=== PATIENT | female | born 1950 | race Caucasian/White ===

== ENCOUNTER → 2020-04-27 09:18 | Outpatient (BNVA) | payer MEDICARE, SELFPAY | PROVIDERS: PCP Registered Nurse; Visit Provider Surgery | DX: Z85.3 Personal history of malignant neoplasm of breast (principal); Z92.21 Personal history of antineoplastic chemotherapy; Z90.12 Acquired absence of left breast and nipple | CPT/HCPCS: 99212 ==

== ENCOUNTER 2020-06-01 10:36 | Outpatient (REF) | payer MEDICARE, SELFPAY ==
--- NOTE | 2020-06-01 | MM_ITS ---
EXAMINATION: MM SCREENING DIGITAL BREAST TOMOSYNTHESIS, BILATERAL CLINICAL INFORMATION: Screening. Asymptomatic. Per previous report: Left mastectomy for breast cancer 2001. Due for yearly exam. The lifetime risk of breast cancer based on the Tyrer-Cuzick Model is not applicable (left mastectomy for breast cancer) COMPARISON: Mammography: Left mammography 02/04/19, 01/30/18, 12/07/16, 12/06/15 TECHNIQUE: Digital breast tomosynthesis is performed in both the craniocaudal and mediolateral oblique views along with computer-aided detection (CAD). Synthesized 2D images are generated from the tomosynthesis. Craniocaudal view of the right breast exaggerated toward the axilla using digital breast Tomosynthesis was also performed FINDINGS: The breasts are heterogeneously dense, which may obscure small masses (ACR BI-RADS breast composition Category c). There are no significant masses, abnormal calcifications, or other abnormalities. MM/MM tomosynthesis screening RT IMPRESSION: No mammographic evidence of malignancy. ASSESSMENT: BI-RADS 1: Negative RECOMMENDATION: Routine annual mammography screening. This patient's information was entered into a reminder system with a target due date for their next mammogram.
== END 2020-06-01 10:37 | disposition home or self-care (01) ==
LOC: HO.MAMMO 10:36
PROVIDERS: PCP Internal Medicine; Visit Provider Internal Medicine
DX: Z12.31 Encounter for screening mammogram for malignant neoplasm of breast (principal)
CPT/HCPCS: 77067

== ENCOUNTER 2020-08-31 13:58 | Outpatient (REF) | payer MEDICARE, SELFPAY ==
--- NOTE | ~2020-08-31 | XR_ITS ---
EXAMINATION: XR CHEST CLINICAL INFORMATION: COMPARISON: Chest CT dated 01/02/2018. TECHNIQUE: 2 views of the chest were obtained. FINDINGS: No significant abnormality is noted involving the heart, lungs, mediastinum, bony thorax or soft tissues. XR/XR chest 2V IMPRESSION: No acute cardiopulmonary process.
[2020-08-31 16:31] LABS: MANUAL DIFF FLAG NO
[2020-08-31 16:34] LABS: Basophils Absolute Auto 0.1 X10*3/uL (0.0-0.2); Eosinophils Absolute Auto 0.3 X10*3/uL (0.0-0.4); Eosinophils Percent Auto 3.4 % (0-4); Hematocrit 43.9 % (37-47); Hemoglobin 14.3 g/dl (12.0-16.0); Imm Gran Abs Auto 0.03 X10*3/uL (0.00-0.03); Imm Gran Pct Auto 0.3 % (0.0-0.4); Lymphocytes Absolute Auto 2.5 X10*3/uL (1.2-4.9); Lymphocytes Percent Auto 26.3 % (20-40); Mean Corpuscular HGB Conc 32.6 g/dl (31.0-35.0); Mean Corpuscular Hemoglobin 29.4 pg (27.0-33.0); Mean Corpuscular Volume 90.1 fL (80-98); Mean Platelet Volume 9.6 fL (9.4-12.3); Monocytes Absolute Auto 0.9 X10*3/uL (0.1-1.2); Neutrophils Absolute Auto 5.6 X10*3/uL (2.0-8.3); Platelet Count 360 X10*3/uL (160-400); Red Blood Count 4.87 X10*6/uL (4.20-5.50); White Blood Count 9.4 X10*3/uL (4.8-10.8)
[2020-08-31 16:47] LABS: D Dimer < 200 NG/ML
[2020-08-31 16:55] LABS: Anion Gap 16 (12-20); Blood Urea Nitrogen 17 mg/dL (9-16); Calcium 9.1 mg/dL (8.4-10.2); Carbon Dioxide 26 mmol/L (22-29); Chloride 102 mmol/L (96-108); Estimated Glomerular Filt Rate > 60; Glucose Random 100 mg/dL (60-115); Potassium 3.9 mmol/L (3.3-5.1); Sodium 140 mmol/L (135-145)
[2020-08-31 17:03] LABS: B Type Natriuretic Peptide 11 pg/mL (<100)
== END 2020-08-31 13:59 | disposition home or self-care (01) ==
LOC: HO.HMGCX 13:58
PROVIDERS: PCP Internal Medicine; Visit Provider Nurse Practitioner Family
DX: R06.02 Shortness of breath (principal); R07.89 Other chest pain
CPT/HCPCS: 36415; 71046; 80048; 83880; 85025; 85379

== ENCOUNTER → 2020-12-24 08:51 | Outpatient (BNV) | payer MEDICARE, SELFPAY | PROVIDERS: PCP Internal Medicine; Visit Provider Internal Medicine Medical Oncology | DX: Z85.3 Personal history of malignant neoplasm of breast (principal) | CPT/HCPCS: 99213 ==

== ENCOUNTER → 2021-02-10 10:12 | Outpatient (BNVA) | payer MEDICARE, SELFPAY | PROVIDERS: PCP Internal Medicine; Referring Provider Internal Medicine; Visit Provider Surgery | DX: Z85.3 Personal history of malignant neoplasm of breast (principal); Z92.21 Personal history of antineoplastic chemotherapy; Z90.12 Acquired absence of left breast and nipple | CPT/HCPCS: 99212 ==

== ENCOUNTER 2021-04-14 07:01 | Outpatient (REF) | payer MEDICARE, SELFPAY ==
[2021-04-14 11:15] LABS: MANUAL DIFF FLAG NO
[2021-04-14 11:24] LABS: Basophils Absolute Auto 0.1 X10*3/uL (0.0-0.2); Eosinophils Absolute Auto 0.3 X10*3/uL (0.0-0.4); Eosinophils Percent Auto 3.5 % (0-4); Hematocrit 43.7 % (37-47); Hemoglobin 14.3 g/dl (12.0-16.0); Imm Gran Abs Auto 0.03 X10*3/uL (0.00-0.03); Imm Gran Pct Auto 0.4 % (0.0-0.4); Lymphocytes Absolute Auto 2.7 X10*3/uL (1.2-4.9); Lymphocytes Percent Auto 33.8 % (20-40); Mean Corpuscular HGB Conc 32.7 g/dl (31.0-35.0); Mean Corpuscular Hemoglobin 29.5 pg (27.0-33.0); Mean Corpuscular Volume 90.3 fL (80-98); Mean Platelet Volume 9.7 fL (9.4-12.3); Monocytes Absolute Auto 0.9 X10*3/uL (0.1-1.2); Monocytes Percent Auto 11.1 % (2-11); Neutrophils Percent Auto 50.2 % (45-73); Platelet Count 320 X10*3/uL (160-400); Red Blood Count 4.84 X10*6/uL (4.20-5.50); Red Cell Distribution Width 13.2 % (11.0-16.0)
[2021-04-14 12:11] LABS: Alanine Aminotransferase 21 U/L (0-31); Albumin Level 4.2 g/dL (3.5-5.0); Alkaline Phosphatase 55 U/L (39-117); Anion Gap 13 (12-20); Aspartate Amino Transferase 27 U/L (5-31); Bilirubin Total 0.7 mg/dL (0.0-1.0); Blood Urea Nitrogen 17 mg/dL (9-16); Calcium 9.7 mg/dL (8.4-10.2); Carbon Dioxide 28 mmol/L (22-29); Chloride 104 mmol/L (96-108); Cholesterol 250 mg/dL; Estimated Glomerular Filt Rate > 60; Glucose Random 91 mg/dL (60-115); HDL Cholesterol 79 mg/dL; LDL Cholesterol Calculated 142 mg/dl; Potassium 4.3 mmol/L (3.3-5.1); Sodium 141 mmol/L (135-145); Total Protein 6.8 g/dL (6.5-8.0); Triglycerides 148 mg/dL
[2021-04-14 12:28] LABS: Folate > 20.0 ng/mL (> or = 4.0); Vitamin B12 620 pg/mL (200-900)
[2021-04-14 12:34] LABS: Free T4 (Free Thyroxine) 1.18 ng/dL (0.71-1.85); Thyroid Stimulating Hormone 2.04 uIU/mL (0.32-4.0); Vitamin D 25-OH Total 47.9 ng/mL (>30)
== END 2021-04-14 07:02 | disposition home or self-care (01) ==
LOC: HO.HMGCLDS 07:01
PROVIDERS: PCP Internal Medicine; Visit Provider Internal Medicine
DX: E03.9 Hypothyroidism, unspecified (principal); E78.00 Pure hypercholesterolemia, unspecified
CPT/HCPCS: 36415; 80053; 80061; 82306; 82607; 82746; 84439; 84443; 85025

== ENCOUNTER 2021-06-08 13:33 | Outpatient (REF) | payer MEDICARE, SELFPAY ==
--- NOTE | ~2021-06-08 | MM_ITS ---
EXAMINATION: MM SCREENING DIGITAL BREAST TOMOSYNTHESIS, RIGHT CLINICAL INFORMATION: Screening. Asymptomatic. Left mastectomy for breast cancer, 2001. COMPARISON: Mammography: 06/01/2020, 02/04/2019, 01/30/2018 TECHNIQUE: Digital breast tomosynthesis is performed in both the craniocaudal and mediolateral oblique views along with computer-aided detection (CAD). Synthesized 2D images are generated from the tomosynthesis. Additional exaggerated CC view is provided. FINDINGS: The breasts are heterogeneously dense, which may obscure small masses (ACR BI-RADS breast composition Category c). There are no significant masses, abnormal calcifications, or other abnormalities. Parenchymal pattern is similar to prior studies. There is no developing density or architectural abnormality. No significant changes. MM/MM tomosynthesis screening RT IMPRESSION: No mammographic evidence of malignancy. ASSESSMENT: BI-RADS 1: Negative RECOMMENDATION: Routine annual mammography screening. This patient's information was entered into a reminder system with a target due date for their next mammogram.
== END 2021-06-08 13:34 | disposition home or self-care (01) ==
LOC: HO.MAMMO 13:33
PROVIDERS: Visit Provider Internal Medicine
DX: Z12.31 Encounter for screening mammogram for malignant neoplasm of breast (principal)
CPT/HCPCS: 77063; 77067

== ENCOUNTER 2021-06-10 13:35 | Outpatient (REF) | payer MEDICARE, SELFPAY ==
--- NOTE | ~2021-06-10 | CT_ITS ---
EXAMINATION: CT CHEST WITHOUT CONTRAST CLINICAL INFORMATION: Follow-up pulmonary nodules COMPARISON: Previous chest CT December 2017 TECHNIQUE: Multidetector volumetric CT imaging of the chest was done. Axial MIP volume rendering provided. Sagittal and coronal reformatted images were obtained. This CT examination was performed using dose optimization techniques as appropriate, variously including the following: *Automated exposure control *Adjustment of mA and/or kV according to patient size (this includes techniques or standardized protocols for targeted exams where dose is matched to indication/reason for exam; i.e. extremities or head) *Use of iterative reconstruction technique DLP: 113 mGy-cm FINDINGS: LUNGS: There is mild biapical pleural parenchymal scarring. There is a 2 mm left upper lobe nodule axial image 59 series 7. There is a 4 mm left lower lobe nodule axial image 320 series 7. There is a 3 mm peripheral or subpleural left lower lobe nodule axial image 249 series 7. There is a 2 mm right lower lobe nodule axial image 269 series 7. There is a 4 mm peripheral or subpleural left lower lobe nodule axial image 347 series 5. There are scattered areas of bronchial wall soft tissue opacification, greatest in the upper lobes. There are increased peripheral reticular markings in the anterior left upper lobe probably related to previous chest wall radiation. There are small calcified pulmonary nodules. Findings are stable 2018. MEDIASTINUM: The mediastinum is normal. PLEURA: There is no pleural effusion. No pleural mass or thickening. AXILLA: The left breast has been removed. There is an asymmetric density seen in the medial lower right breast 1 cm axial image 33 series 3, sagittal reconstructed image There are small bilateral axillary lymph nodes. No enlarged lymph nodes are seen. UPPER ABDOMEN: Unremarkable. OSSEOUS STRUCTURES: There is curvature of the thoracic right and mild degenerative change. CT/CT chest wo con IMPRESSION: Stable pulmonary nodules. Increasing asymmetric density in the right medial lower breast. Correlation with mammogram, ultrasound and physical exam recommended. Fleischner guidelines were followed.
--- NOTE | 2021-06-13 13:59 | MHC.HEMONC ---
Report of pt CT and see if she was concerned.to be reviewed by Dr Damon as Dr Gurrola called and wanted Dr Damon to review
== END 2021-06-10 13:36 | disposition home or self-care (01) ==
LOC: HO.CT 13:35
PROVIDERS: PCP Internal Medicine; Visit Provider Internal Medicine
DX: R91.1 Solitary pulmonary nodule (principal)
CPT/HCPCS: 71250

== ENCOUNTER 2021-06-13 14:00 | Outpatient (RCR) | payer MEDICARE, SELFPAY ==
--- NOTE | 2021-04-27 15:08 | MHC.PT.EP ---
[facility] [place] Office [place] Office [place] Office [address] Timmy Hawkins [address] [phone] F: [phone] F: [phone] F: [phone] F: [phone] Physical Therapy Plan of Care Date of Evaluation: Date of Surgery: Diagnosis: This is a 71 yo female presenting to skilled PT with a script for dysfunction of sacral region Assessment: This is a 71 yo female presenting to skilled PT with a script for dysfunction of sacral region. Pain has been ongoing for about 6 weeks. 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 She reports that the pain had gotten so bad she went to the walk-in as it was a weekend. She saw Dr. Parsons who performed MET and provided a regiment of prednisone. Since then her pain has improved and she has returned to golf but continues to have some residual achiness. Pain is now located at the L side low back and at times this can radiate into the L thigh (does not go past the knee). Pain is described as weakness and achy now. Assessment reveals pain that ranges up to a 6/10 at the worst. She demos decreased L hip ROM, decreased B hip, core and back strength, impaired gait pattern with increased sacral rotation, impaired lumbar joint mobility (hypomobile), TTP L piri, lumbar paraspinals, L ITB and QL as well as gross functional decline with sitting and golfing. She is a good candidate for skilled PT 2x/wk for 6wks. Frequency and Duration: The patient will be seen 2x/wk for 6wks Short Term Goals: I in HEP Demo good tac without cues from PT Demo good sitting posture at work with lumbar roll, feet flat, neutral cervical spine Snf Goals: Demos functional ROM and strength Improve Oswestry by at least 10 points Improve pain at the worst to no more than 2/10 Tolerate sitting at work without symptoms, not waking at night from pain Demo proper lifting, squatting and carrying techniques without increase in pain or radiating symptoms Treatment Plan: Modalities to reduce pain, spasms and effusion. Manual therapy to restore motion and function. Therapeutic exercise to improve strength and flexibility. Neuromuscular re-education for posture and balance. Therapeutic activities to return to functional activities of daily living. Electronically signed by: Josette Auguste PT Please sign and return to therapist. Thank you for your referral.
--- NOTE | 2021-06-13 14:54 | MHC.PT.DC ---
[facility] [place] Office [place] Office [place] Office [address] Timmy Hawkins [address] [phone] F: [phone] F: [phone] F: [phone] F: [phone] Physical Therapy Discharge Report Diagnosis: This is a 71 yo female presenting to skilled PT with a script for dysfunction of sacral region Date of Surgery: Date of Evaluation: 04/27/21 Date of Discharge: 06/13/21 Treatments to Date: 8 Cancellations to Date: 0 No Shows to Date: 0 Discharge Status: Achieved Goals Improved Function Independent with HEP Discharge Summary: Patient demos good pelvic alignment. She is I in her HEP and has improved her symptoms. She demos good ROM and strength. Educated once more on HEP and DC planning. DC to HEP Electronically signed by: Josette Auguste PT Please sign and return to therapist. Thank you for your referral.
== END 2021-06-13 14:54 | disposition home or self-care (01) ==
LOC: HO.PTCHIC 14:00
PROVIDERS: PCP Internal Medicine; Visit Provider Internal Medicine
DX: M99.04 Segmental and somatic dysfunction of sacral region (principal)
CPT/HCPCS: 97110; 97112; 97140; 97162

== ENCOUNTER 2021-07-01 10:48 | Outpatient (REF) | payer MEDICARE, SELFPAY ==
--- NOTE | ~2021-07-01 | MM_ITS ---
EXAMINATION: MM DIAGNOSTIC DIGITAL BREAST TOMOSYNTHESIS, RIGHT CLINICAL INFORMATION: Right breast CT finding for which targeted diagnostic ultrasound was performed with review of mammography of June 08, 2021 question be showing area of architectural distortion inferior right breast. COMPARISON: Mammography: Mammography of June 08, 2021 and studies dating back to December 06, 2015 as well as ultrasound of same day. TECHNIQUE: Digital breast tomosynthesis is performed in 90 degree mediolateral view and spot compression mediolateral oblique view. Synthesized 2D images are generated from the tomosynthesis. FINDINGS: The breasts are heterogeneously dense, which may obscure small masses (ACR BI-RADS breast composition Category c). Recent mammogram performed on June 08, 2021 was reviewed and is question of area of architectural distortion corresponding to the CT finding about the inferior aspect of the right breast 4 cm from the nipple. Further mammographic evaluation was performed with a spot compression mediolateral oblique projection and 90 degree mediolateral view of the right breast. The questioned spiculated mass is seen to compress out and to represent superimposition of fibroglandular tissue. No persistent suspicious mass is seen. Results are discussed with the patient at time of visit. MM/MM tomosynthesis diagnostic RT IMPRESSION: No suspicious ultrasound or mammographic findings of the right breast to correspond to CT findings.. ASSESSMENT: BI-RADS 1: Negative RECOMMENDATION: Routine annual mammography screening. This patient's information was entered into a reminder system with a target due date for their next mammogram.
--- NOTE | ~2021-07-01 | US_ITS ---
EXAMINATION: US DIAGNOSTIC ULTRASOUND BREAST LIMITED, RIGHT CLINICAL INFORMATION: Asymmetric density seen on CT scan of 06/10/2021. COMPARISON: CT scan of 06/10/2021 and mammography of 06/08/2021 and mammograms dating back to 10/30/2013. TECHNIQUE: Ultrasound of the breast is performed with real-time ness-scale imaging and color Doppler. FINDINGS: There is no focal suspicious finding. There is no solid mass, architectural abnormality, duct ectasia, or edema in the soft tissue planes. Recent mammogram performed on 06/08/2021 was reviewed, and there is a question of an area of architectural distortion corresponding to the CT finding about the inferior aspect of the right breast 4 cm from the nipple. Further mammographic evaluation was performed with a spot compression mediolateral oblique projection and 90-degree mediolateral view of the right breast. The questioned spiculated mass is seen to compress out representing superimposition of fibroglandular tissue. No persistent suspicious mass is seen. Results are discussed with the patient at time of visit. US/US breast RT limited IMPRESSION: No suspicious ultrasound or mammographic findings of the right breast to correspond to CT findings. ASSESSMENT: BI-RADS 1: Negative. RECOMMENDATION: Routine annual mammography screening. This patient's information was entered into a reminder system with a target due date for their next mammogram.
== END 2021-07-01 10:49 | disposition home or self-care (01) ==
LOC: HO.MAMMO 10:48
PROVIDERS: PCP Internal Medicine; Visit Provider Internal Medicine
DX: R92.2 Inconclusive mammogram (principal)
CPT/HCPCS: 76642; 77061; 77065

== ENCOUNTER 2021-11-10 09:09 | Outpatient (REF) | payer MEDICARE, SELFPAY ==
--- NOTE | ~2021-11-10 | MM_ITS ---
EXAMINATION: BONE DENSITOMETRY CLINICAL INDICATION: Age-related osteoporosis without current pathological fracture. COMPARISON: Previous BD dated 02/18/2019 and baseline BD dated 10/05/2006. TECHNIQUE: Using a [employer] PPEC DXA System (software version: 13.1) manufactured by [employer], dual-energy x-ray absorptiometry was performed of the lumbar spine and left hip. The images are of good technical quality. Summary results are attached. FINDINGS: AP SPINE L1-L4: Current: BMD 1.274 g/cm2, Z-score 2.6, T-score 0.8, normal, 3.6% increase from previous, 5.7% increase from baseline (<5% change is not significant). Prior: BMD 1.230 g/cm2. Baseline: BMD 1.205 g/cm2. LEFT FEMUR, NECK: Current: BMD 0.867 g/cm2, Z-score 0.6, T-score -1.2, osteopenia. Prior: BMD 0.829 g/cm2. Baseline: BMD 0.811 g/cm2. LEFT FEMUR, TOTAL: Current: BMD 0.904 g/cm2, Z-score 0.8, T-score -0.8, normal, 1.5% decrease from previous, 2.4% decrease from baseline (<5% change is not significant). Prior: BMD 0.918 g/cm2. Baseline: BMD 0.926 g/cm2. IDENTIFIED RISK FACTORS: Menopause. HISTORY OF FRACTURE: No insufficiency fracture reported. . MEDICATIONS: Calcium supplements or multivitamin, vitamin D, ERT/SERMS. MM/XR DEXA axial skeleton IMPRESSION: 1. DIAGNOSIS: Osteopenia based on the lowest T-score value of -1.2 in the femoral neck applying World Health Organization criteria. 2. 10-YEAR FRACTURE RISK PREDICTION, FRAX: Major osteoporotic fracture (clinical spine, forearm, hip or shoulder) 9.3%. Hip fracture 1.2%. 3. Treatment Recommendations: NOF guidelines recommend consideration for treatment in postmenopausal women and men age 50 and older presenting with the following: -A hip or vertebral (clinical or morphometric) fracture. -T-score less than or equal to -2.5 at the femoral neck or spine after appropriate evaluation to exclude secondary causes. -Low bone mass at the hip or spine and a 10-year fracture probability by FRAX of greater than or equal to 3% for hip fracture or greater than or equal to 20% for major osteoporotic fracture based on the [place] adapted WHO algorithm. 4. Other Recommendations: All treatment decisions require clinical judgment and consideration of individual patient factors, including patient preferences, comorbidities, previous drug use, risk factors not captured in the FRAX model (e.g. frailty, falls, vitamin D deficiency, increased bone turnover, interval significant decline in bone density) and possible under or overestimation of fracture risk by FRAX. Additional medical evaluation for secondary cause of low bone mineral density may be appropriate. FUTURE SCAN RECOMMENDATION: People with diagnosed cases of osteoporosis or at high risk for fracture should have regular bone mineral density tests. For patients eligible for Medicare, routine testing is allowed once every 2 years. The testing frequency can be increased to one year for patients who have rapidly progressing disease, those who are receiving or discontinuing medical therapy to restore bone mass, or have additional risk factors.
== END 2021-11-10 09:10 | disposition home or self-care (01) ==
LOC: HO.MAMMO 09:09
PROVIDERS: PCP Internal Medicine; Visit Provider Internal Medicine
DX: Z13.820 Encounter for screening for osteoporosis (principal); Z78.0 Asymptomatic menopausal state; M81.0 Age-related osteoporosis without current pathological fracture
CPT/HCPCS: 77080

== ENCOUNTER 2022-01-23 10:06 | Outpatient (REF) | payer MEDICARE, SELFPAY ==
--- NOTE | ~2022-01-23 | XR_ITS ---
EXAMINATION: XR ABDOMEN COMPLETE CLINICAL INDICATION: Abdominal pain. COMPARISON: None TECHNIQUE: 2 views of the abdomen. FINDINGS: There is a nonobstructive bowel gas pattern. Mild gas and stool are seen within the colon distally to the rectum. No abnormal calcifications. Mild multilevel degenerative changes in the inferior lumbar spine and hips bilaterally. XR/XR abdomen min 2V IMPRESSION: Noneffective bowel gas pattern. Mild colonic stool burden.
== END 2022-01-23 10:07 | disposition home or self-care (01) ==
LOC: HO.HMGCX 10:06
PROVIDERS: PCP Internal Medicine; Visit Provider Internal Medicine
DX: R10.9 Unspecified abdominal pain (principal)
CPT/HCPCS: 74019

== ENCOUNTER → 2022-02-14 08:47 | Outpatient (BNVA) | payer MEDICARE, SELFPAY | PROVIDERS: PCP Internal Medicine; Visit Provider Surgery | DX: Z85.3 Personal history of malignant neoplasm of breast (principal) | CPT/HCPCS: 99212 ==

== ENCOUNTER 2022-03-28 07:13 | Outpatient (REF) | payer MEDICARE, SELFPAY ==
[2022-03-28 11:25] LABS: MANUAL DIFF FLAG NO
[2022-03-28 11:41] LABS: Basophils Absolute Auto 0.1 X10*3/uL (0.0-0.2); Basophils Percent Auto 0.9 % (0-2); Eosinophils Absolute Auto 0.3 X10*3/uL (0.0-0.4); Eosinophils Percent Auto 3.4 % (0-4); Hematocrit 46.6 % (37.0-47.0); Imm Gran Abs Auto 0.04 X10*3/uL (0.00-0.03); Imm Gran Pct Auto 0.4 % (0.0-0.4); Lymphocytes Absolute Auto 2.7 X10*3/uL (1.2-4.9); Lymphocytes Percent Auto 29.1 % (20-40); Mean Corpuscular HGB Conc 32.2 g/dl (31.0-35.0); Mean Corpuscular Hemoglobin 29.1 pg (27.0-33.0); Mean Corpuscular Volume 90.3 fL (80.0-98.0); Mean Platelet Volume 9.7 fL (9.4-12.3); Monocytes Percent Auto 10.7 % (2-11); Neutrophils Absolute Auto 5.1 x10*3/uL (2.0-8.3); Neutrophils Percent Auto 55.5 % (45-73); Platelet Count 334 X10*3/uL (160-400); Red Blood Count 5.16 X10*6/uL (4.20-5.50); Red Cell Distribution Width 13.2 % (11.0-16.0); White Blood Count 9.2 X10*3/uL (4.8-10.8)
[2022-03-28 12:23] LABS: Alanine Aminotransferase 25 U/L (0-31); Albumin Level 4.4 g/dL (3.5-5.0); Alkaline Phosphatase 54 U/L (39-117); Anion Gap 14 (12-20); Aspartate Amino Transferase 26 U/L (5-31); Bilirubin Total 0.5 mg/dL (0.0-1.0); Blood Urea Nitrogen 15 mg/dL (9-16); Calcium 9.7 mg/dL (8.4-10.2); Carbon Dioxide 27 mmol/L (22-29); Chloride 103 mmol/L (96-108); Cholesterol 238 mg/dL; Estimated Glomerular Filt Rate > 60; Glucose Random 96 mg/dL (60-115); HDL Cholesterol 73 mg/dL; LDL Cholesterol Calculated 129 mg/dl; Potassium 4.4 mmol/L (3.3-5.1); Sodium 140 mmol/L (135-145); Total Protein 6.9 g/dL (6.5-8.0); Triglycerides 182 mg/dL
[2022-03-28 12:31] LABS: Free T4 (Free Thyroxine) 1.25 ng/dL (0.71-1.85); Thyroid Stimulating Hormone 1.63 uIU/mL (0.32-4.0); Vitamin D 25-OH Total 50.8 ng/mL (>30)
[2022-03-28 12:51] LABS: Folate > 20.0 ng/mL (> or = 4.0); Vitamin B12 642 pg/mL (200-900)
== END 2022-03-28 07:14 | disposition home or self-care (01) ==
LOC: HO.HMGCLDS 07:13
PROVIDERS: PCP Internal Medicine; Visit Provider Internal Medicine
DX: E78.00 Pure hypercholesterolemia, unspecified (principal)
CPT/HCPCS: 36415; 80053; 80061; 82306; 82607; 82746; 84439; 84443; 85025

== ENCOUNTER 2022-04-10 10:07 | Outpatient (REF) | payer MEDICARE, SELFPAY ==
--- NOTE | ~2022-04-10 | XR_ITS ---
EXAMINATION: XR SHOULDER, RIGHT CLINICAL INFORMATION: Pain COMPARISON: None TECHNIQUE: AP external rotation, Grashey, scapular Y, and axillary views of the right shoulder. FINDINGS: Bone alignment is normal. No fracture or dislocation. Normal glenohumeral joint. Arthritis at the acromioclavicular joint. Normal soft tissues. XR/XR shoulder RT min 2V IMPRESSION: Arthritis at the acromioclavicular joint.
== END 2022-04-10 10:08 | disposition home or self-care (01) ==
LOC: HO.XRAY 10:07
PROVIDERS: PCP Internal Medicine; Visit Provider Internal Medicine
DX: M25.511 Pain in right shoulder (principal)
CPT/HCPCS: 73030

== ENCOUNTER → 2022-04-28 08:34 | Outpatient (BNVA) | payer MEDICARE, SELFPAY | PROVIDERS: PCP Internal Medicine; Visit Provider Physician Assistant | DX: M19.011 Primary osteoarthritis, right shoulder (principal); M75.80 Other shoulder lesions, unspecified shoulder | CPT/HCPCS: 20610; 99202; J1040 ==

== ENCOUNTER 2022-06-20 11:02 | Outpatient (REF) | payer MEDICARE, SELFPAY ==
[2022-06-20 15:26] LABS: Anion Gap 14 (12-20); Blood Urea Nitrogen 16 mg/dL (9-16); Calcium 9.7 mg/dL (8.4-10.2); Carbon Dioxide 28 mmol/L (22-29); Chloride 101 mmol/L (96-108); Estimated Glomerular Filt Rate > 60; Glucose Random 100 mg/dL (60-115); Sodium 139 mmol/L (135-145)
== END 2022-06-20 11:03 | disposition home or self-care (01) ==
LOC: HO.HMGCLDS 11:02
PROVIDERS: PCP Internal Medicine; Visit Provider Internal Medicine
DX: I10 Essential (primary) hypertension (principal)
CPT/HCPCS: 36415; 80048

== ENCOUNTER 2022-06-21 14:56 | Outpatient (REF) | payer MEDICARE, SELFPAY ==
--- NOTE | ~2022-06-21 | MM_ITS ---
EXAMINATION: MM SCREENING DIGITAL BREAST TOMOSYNTHESIS, RIGHT CLINICAL INFORMATION: Screening. Asymptomatic. Status post left mastectomy. COMPARISON: Mammography: July 01, 2021 and studies dating back to December 06, 2015 TECHNIQUE: Digital breast tomosynthesis is performed in both the craniocaudal and mediolateral oblique views along with computer-aided detection (CAD). Synthesized 2D images are generated from the tomosynthesis. Additional right breast exaggerated craniocaudal view performed. FINDINGS: The breasts are extremely dense, which lowers the sensitivity of mammography (ACR BI-RADS breast composition Category d). There are no new significant masses, abnormal calcifications, or other abnormalities. MM/MM tomosynthesis screening RT IMPRESSION: No significant changes from prior exam. ASSESSMENT: BI-RADS 1: Negative RECOMMENDATION: Routine annual mammography screening. This patient's information was entered into a reminder system with a target due date for their next mammogram.
== END 2022-06-21 14:57 | disposition home or self-care (01) ==
LOC: HO.MAMMO 14:56
PROVIDERS: PCP Internal Medicine; Visit Provider Surgery
DX: Z12.31 Encounter for screening mammogram for malignant neoplasm of breast (principal)
CPT/HCPCS: 77063; 77067

== ENCOUNTER 2022-07-17 05:44 | Day surgery (SDC) | payer MEDICARE, SELFPAY ==
[2022-07-11 11:18] VITALS: BMI 23.7
--- NOTE | 2022-07-14 09:39 | MHC.SHP ---
Pre-Procedural Eval Section A Date of Service: 07/14/22 The patient is an INPATIENT: No Changes since office visit: No Cold of Flu in the past 2 weeks, No New Medical Problems, No Changes in Medication and No Patient answered all questions The History & Physical has been completed within 30 days and I have reviewed it.: Yes Section B Chief Complaint: Age-related nuclear cataract, left eye Allergies: Allergies Allergy/AdvReac Type Severity Reaction Status Date / Time [id number] Reductase Allergy Mild ACHY Verified 07/11/22 11:06 Inhibitor [[id number] REDUCTASE INHIBITOR] atorvastatin [From Lipitor] Allergy Unknown Muscle Pain Verified 07/11/22 11:18 ciprofloxacin [Cipro] Allergy Unknown Anaphylaxis Verified 07/11/22 11:06 metronidazole Allergy Unknown anaphylaxis Verified 07/11/22 11:06 rosuvastatin [From Crestor] Allergy Unknown Muscle Pain Verified 07/11/22 11:18 simvastatin Allergy Unknown Muscle Pain Verified 07/11/22 11:18 Sulfa (Sulfonamide Allergy Unknown diarrhea Verified 07/11/22 11:06 Antibiotics) sulfamethoxazole Allergy Unknown Unknown Verified 07/11/22 11:06 [From Bactrim] trimethoprim [From Bactrim] Allergy Unknown Unknown Verified 07/11/22 11:06 SEASONAL ALLERGIES Allergy Intermediate ITCHING Uncoded 07/11/22 11:06 Plan Diagnosis/Plan: Unchanged I have reviewed the history and physical and performed a pertinent physical examination on my patient. No changes have occurred unless specified. Time Spent With Patient Time: Total time managing care of this patient today ____ minutes.
[2022-07-17] MEDS: Tetracaine HCl/PF 0.5% Oph Sol 4 ML DROPS 1 DROP EYE-LEFT (06:09)
[2022-07-17] MEDS: Tropicamide 1 % Ophth Sol 3 ML BTL 1 DROP EYE-LEFT ×3 (06:10→06:20)
[2022-07-17] MEDS: Ketorolac Tromethamine 0.5% Op 5 ML DROPS 1 DROP EYE-LEFT ×3 (06:10→06:20)
[2022-07-17] MEDS: Cyclopentolate 1 % Ophth Sol 2 ML DRPBTL 1 DROP EYE-LEFT ×3 (06:10→06:20)
[2022-07-17] MEDS: Phenylephrine HCL 2.5% Oph SoL 2 ML BOTTLE 1 DROP EYE-LEFT ×3 (06:10→06:20)
[2022-07-17] MEDS: Lactated Ringers 500 ML 20 ML IVCONT ×2 (06:11→06:24)
[2022-07-17 06:23] VITALS: BP 129/67; PULSE 94; RESP 18; TEMP 36.6; O2SAT 97
--- NOTE | 2022-07-17 06:26 | PC.NURSE ---
only one bag of 500ml was hung at [facility].
--- NOTE | 2022-07-17 07:14 | P.CONAN_ITS ---
[facility] Active Problems Active Problems: All Active Problems (Updated 06/07/22 @ 14:44 by Genaro Dubon MD) Contusion of leg, left (Acute) Rotator cuff tendonitis (Acute) Arthritis of right acromioclavicular joint (Acute) Shoulder pain, right (Acute) Constipation (Acute) Osteopenia (Acute) Abdominal pain (Acute) Bicipital tendinitis of right shoulder (Acute) Pulmonary nodule (Acute) Somatic dysfunction of left sacroiliac joint (Acute) GERD (gastroesophageal reflux disease) (Acute) IBS (irritable bowel syndrome) (Acute) Hypercholesterolemia (Acute) History of left breast cancer (Acute) Hypothyroidism (Acute) Hypertension (Acute) Past Medical History Medical History Adult general medical exam Anxiety Breast density Chest tightness Diverticular disease Drug allergy, antibiotic Family history of malignant neoplasm of endometrium Family history of pancreatic cancer History of left breast cancer Hypercholesterolemia Hypertension Hypothyroidism Insomnia Irritable bowel syndrome Pulmonary nodule Shortness of breath Family History Family History Father History of cirrhosis Lung cancer Mother Pancreatic cancer CVD (cardiovascular disease) Hypertension Sister History of endometrial cancer Brother No problems noted. Other Substance use disorder Family history of problems with anesthesia: No Surgical History Surgical History History of colonoscopy History of laparoscopy History of left mastectomy History of tonsillectomy History of Problems with Anesthesia: No Social History Social History Household Members: None Housing: House Are you a primary personal care aid to a significant other at home: No Do you presently have visiting nurse or other home services: No Alcohol intake: current Alcohol intake frequency: holidays/special occasions only Alcohol type: beer and wine Patient Tobacco Use Status: Never used Tobacco e-Cigarette/Vaping Use: Never Used Second Hand Smoke Exposure: No Use of substances other than those prescribed or required for medical reasons: No Have you been hit, kicked, punched, or otherwise hurt by someone within the past year? 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) Cognitive needs: No Hearing needs: No Vision needs: Yes Meds Allergies Allergy/AdvReac Type Severity Reaction Status Date / Time Kiosvit-YDP-FhH Reductase Allergy Mild ACHY Verified 07/11/22 11:06 Inhibitor [[id number] REDUCTASE INHIBITOR] atorvastatin [From Lipitor] Allergy Unknown Muscle Pain Verified 07/11/22 11:18 ciprofloxacin [Cipro] Allergy Unknown Anaphylaxis Verified 07/11/22 11:06 metronidazole Allergy Unknown anaphylaxis Verified 07/11/22 11:06 rosuvastatin [From Crestor] Allergy Unknown Muscle Pain Verified 07/11/22 11:18 simvastatin Allergy Unknown Muscle Pain Verified 07/11/22 11:18 Sulfa (Sulfonamide Allergy Unknown diarrhea Verified 07/11/22 11:06 Antibiotics) sulfamethoxazole Allergy Unknown Unknown Verified 07/11/22 11:06 [From Bactrim] trimethoprim [From Bactrim] Allergy Unknown Unknown Verified 07/11/22 11:06 SEASONAL ALLERGIES Allergy Intermediate ITCHING Uncoded 07/11/22 11:06 Active Medications: Current Medications Lactated Ringer's (Lr) 500 mls @ 20 mls/hr IVCONT .Q24H GURDEEP Last Admin: 07/17/22 06:24 Dose: 20 mls/hr Povidone Iodine (Povidone Iodine 5 % Ophth Soln 30 Ml Bottle) 1 appl EYE-LEFT PREOP PRN PRN Reason: Pre-Op Surgical Implant Prophy Home Medications Medication Instructions Recorded Confirmed Last Taken Type Saccharomyces boulardii 250 mg 250 mg PO DAILY 05/27/20 07/11/22 Unknown History capsule (Daily Probiotic (S. boulardii)) calcium carbonate 600 mg-vitamin 1 cap PO DAILY 05/27/20 07/11/22 Unknown History D3 5 mcg (200 unit) capsule (Calcium 600 + D(3)) fluticasone propionate 50 2 spray intranasal DAILY 05/27/20 07/11/22 Unknown History mcg/actuation nasal spray,suspension ketoconazole 2 % shampoo 1 appl topical 2XW 05/27/20 07/11/22 Unknown History multivitamin 1 tab PO DAILY 12/29/21 07/11/22 Unknown History azelaic acid 15 % topical gel 1 appl topical BID 01/23/22 07/11/22 Unknown History Exam Exam Date and Time: July 17, 2022 0714 Height,Weight and Vital Signs: Height 5 ft 3 in Weight 60.781 kg Last Vital Signs Temp 97.9 F 07/17/22 06:23 Pulse 94 07/17/22 06:23 Resp 18 07/17/22 06:23 BP 129/67 07/17/22 06:23 Pulse Ox 97 07/17/22 06:23 O2 Del Method 07/17/22 06:23 Airway Mallampati Class: III (Small opening) TM Dist: >3cm Neck ROM: Full Heart: rrr Lungs: cta Assessment and Plan Assessment Anesthesia Assessment: Anesthesia Plan Discussed and Chart Reviewed Final Anesthetic Review Family History of Problems with Anesthesia: No History of Problems with Anesthesia: No NPO: Yes ASA Class: III Final Preanesthetic Review: No Changes in Pt Med Stat, Meds/Allgs Chart Reviewed and Consent Obtained/Reviewed Patient Risk: Intermediate Procedure Risk: Intermediate Anesthetic Plan Anesthetic Plan: MAC: Disposition: Standard PACU
[2022-07-17 07:57] VITALS: BP 118/65; PULSE 73; RESP 17; TEMP 36.6; O2SAT 99
--- NOTE | 2022-07-17 08:06 | P.PCNO_ITS ---
Ophthalmology Procedure Procedure Date of Service: 07/17/22 Ophthalmology Viscoelastic: Healon Duet Dual Pack Pro Ophthalmology Lenses: TECNIS ZXR00 (19) Procedure Notes: PREOPERATIVE DIAGNOSIS: Decreased visual acuity left eye secondary to cataract POSTOPERATIVE DIAGNOSIS: Same PROCEDURE: Left cataract extraction with multifocal intraocular lens insertion SURGEON: Dimitris Luis M.D. ANESTHESIA: Topical/MAC ESTIMATED BLOOD LOSS: None COMPLICATIONS: None After obtaining informed consent, the patient was brought to the operation room suite and placed in the supine position. After adequate sedation per anesthesia, topical drops of Tetracaine were given to the left eye. The eye was then prepped and draped in the usual sterile fashion. The operating room microscope was then positioned over the operative eye and a lid speculum placed. A paracentesis was created. Viscoelastic was then instilled into the anterior chamber. A three plane incision was then created temporally, utilizing a 2.85 mm keratome. Capsulotomy forceps were then utilized to create a circular tear capsulotomy. Hydrodissection and hydrodelineation were carried out until adequate mobilization of the nucleus occurred. Phacoemulsification was then utilized to remove the dense central nucleus followed by removal of the cortical material utilizing the automated aspiration irrigation unit. Viscoelastic was instilled into the posterior capsular bag followed by placement of a multifocal posterior chamber intraocular lens without difficulty. The residual Viscoelastic was then removed utilizing the automated IA machine. The wound was check and found to be watertight. The patient tolerated t he procedure well and the lid speculum was removed. Intracameral injection of Vigamox 0.1 mL followed by a subtenon injection of Kenalog-40 0.2 mL were administered. The patient will be seen in the a.m.
== END 2022-07-17 08:11 | disposition home or self-care (01) ==
PROVIDERS: PCP Internal Medicine; Visit Provider Ophthalmology
PROC: (CPT 66984; principal; 2022-07-17 07:30)
DX: H25.12 Age-related nuclear cataract, left eye (principal); H40.013 Open angle with borderline findings, low risk, bilateral; D23.121 Other benign neoplasm of skin of left upper eyelid, including canthus; H52.4 Presbyopia; I10 Essential (primary) hypertension; E78.00 Pure hypercholesterolemia, unspecified; E03.9 Hypothyroidism, unspecified; R91.1 Solitary pulmonary nodule; C50.912 Malignant neoplasm of unspecified site of left female breast; Z90.12 Acquired absence of left breast and nipple; Z79.810 Long term (current) use of selective estrogen receptor modulators (SERMs); Z79.51 Long term (current) use of inhaled steroids; Z79.899 Other long term (current) drug therapy; Z88.1 Allergy status to other antibiotic agents; Z88.2 Allergy status to sulfonamides; Z88.8 Allergy status to other drugs, medicaments and biological substances
CPT/HCPCS: 66984; J2250; J3301; V2788

== ENCOUNTER 2022-08-03 10:00 | Outpatient (RCR) | payer MEDICARE, SELFPAY ==
--- NOTE | 2022-06-07 10:53 | MHC.PT.EP ---
[facility] [place] Office [place] Office [place] Office [address] [phone] F: [phone] F: [phone] F: [phone] F: [phone] Physical Therapy Plan of Care Date of Evaluation: Date of Surgery: none Diagnosis: Primary OA of R shoulder Assessment: Patient is a 72 year old R handed female who presents with s/s consistent with R shoulder pain. She likes to golf during the spring and summer. Patient past medical history includes breast cancer 20 years ago with mastectomy. Current impairments include pain, posture, ROM, strength, activity tolerance and functional mobility. Functional limitations include decreased ability to sleep, reach, lift and carry. Patient is motivated with good rehab potential. Skilled PT will address impairments and functional limitations in order to achieve goals. Frequency and Duration: The patient will be seen 2x/week for 5 weeks Short Term Goals: I with HEP - 2 weeks Pain free full AROM - 3 weeks Able to sleep pain free- 3 weeks Long-Term Goals: Strength 4/5 grossly - 5 weeks SPADI 14/130 or les - 5 weeks restore pain free PLOF - 5 weeks Treatment Plan: Modalities to reduce pain, spasms and effusion. Manual therapy to restore motion and function. Therapeutic exercise to improve strength and flexibility. Neuromuscular re-education for posture and balance. Therapeutic activities to return to functional activities of daily living. Electronically signed by: Adam Still, PT Please sign and return to therapist. Thank you for your referral.
--- NOTE | 2022-09-01 08:41 | MHC.PT.DC ---
[facility] [place] Office [place] Office [place] Office [address] Timmy Hawkins [address] [phone] F: [phone] F: [phone] F: [phone] F: [phone] Physical Therapy Discharge Report Diagnosis: Primary OA of R shoulder Date of Surgery: none Date of Evaluation: 06/07/22 Date of Discharge: 08/12/22 Treatments to Date: 13 Cancellations to Date: No Shows to Date: Discharge Status: Achieved Goals Improved Function Independent with HEP Discharge Summary: 08/03/22: SPADI 10/130. I with HEP. Progressed towards full AROM but not achieved yet. Able to sleep pain free. Strength is grossly 4/5, progressed towards pain free PLOF with 2/10 pain max with ADLs. Pt encouraged with ability to swing golf clubs. We will d/c to HEP at this time. Pt has HEP and appropriate bands. 07/28/22: pt still with good response. notes continued improvement and compiance with HEP. states she is 90% better and sleeping much better. 07/21/22: pt weak in ER 90/90 position. we initiated this today and will move it to HEP when pt able to perform without cues. 07/13/22: pt has been feeling better overall. tapering to 1x/week. issued updated HEP. 07/11/22: pt has been progressing well with skilled PT. progressed strength with D1/D2. no adverse reactions. continue to progress as tolerated. 07/06/22: pt has been compliant with HEP. progressing well. some pain with IR behind back but otherwise she is on pace to taper to 1x/week after next week. 07/04/22: pt is happy with progress thus far and is compliant with HEP. we progressed with b/l ER band today. continue to progress as tolerated. 06/30/22: pt seeing improved ability to reach overhead. however, still limited with rotational ROM. 06/28; Pt had increased flexion after mobs. fatigued after exs with no c/o increased pain. Added IR stretch with strap behind back as she reports this motion for ADLs is still challenging. She is making improvements in flexion and ER AROM, pain at end range of available ER, instructed to back off slightly when she feels pain and hold the stretch. Electronically signed by: Adam Still PT Please sign and return to therapist. Thank you for your referral.
== END 2022-09-01 08:42 | disposition home or self-care (01) ==
LOC: HO.PTCHIC 10:00
PROVIDERS: PCP Internal Medicine; Visit Provider Physician Assistant
DX: M19.011 Primary osteoarthritis, right shoulder (principal); M75.80 Other shoulder lesions, unspecified shoulder
CPT/HCPCS: 97110; 97140; 97162

== ENCOUNTER 2022-08-07 06:58 | Day surgery (SDC) | payer MEDICARE, SELFPAY ==
[2022-07-11 11:24] VITALS: BMI 23.7
--- NOTE | 2022-08-02 09:24 | MHC.SHP ---
Pre-Procedural Eval Section A Date of Service: 08/02/22 The patient is an INPATIENT: No Changes since office visit: No Cold of Flu in the past 2 weeks, No New Medical Problems, No Changes in Medication and No Patient answered all questions The History & Physical has been completed within 30 days and I have reviewed it.: Yes Section B Chief Complaint: Age-related nuclear cataract, right eye Allergies: Allergies Allergy/AdvReac Type Severity Reaction Status Date / Time [id number] Reductase Allergy Mild ACHY Verified 07/21/22 10:03 Inhibitor [[id number] REDUCTASE INHIBITOR] atorvastatin [From Lipitor] Allergy Unknown Muscle Pain Verified 07/21/22 10:03 ciprofloxacin [Cipro] Allergy Unknown Anaphylaxis Verified 07/21/22 10:03 metronidazole Allergy Unknown anaphylaxis Verified 07/21/22 10:03 rosuvastatin [From Crestor] Allergy Unknown Muscle Pain Verified 07/21/22 10:03 simvastatin Allergy Unknown Muscle Pain Verified 07/21/22 10:03 Sulfa (Sulfonamide Allergy Unknown diarrhea Verified 07/21/22 10:03 Antibiotics) sulfamethoxazole Allergy Unknown Unknown Verified 07/21/22 10:03 [From Bactrim] trimethoprim [From Bactrim] Allergy Unknown Unknown Verified 07/21/22 10:03 lisinopril AdvReac Intermediate Cough Verified 07/21/22 10:38 SEASONAL ALLERGIES Allergy Intermediate ITCHING Uncoded 07/21/22 10:03 Plan Diagnosis/Plan: Unchanged I have reviewed the history and physical and performed a pertinent physical examination on my patient. No changes have occurred unless specified. Time Spent With Patient Time: Total time managing care of this patient today ____ minutes.
[2022-08-07 07:04] VITALS: BP 156/77; PULSE 77; RESP 20; TEMP 36.6; O2SAT 97
[2022-08-07] MEDS: Phenylephrine HCL 2.5% Oph SoL 2 ML BOTTLE 1 DROP EYE-RIGHT ×3 (07:19→07:21)
[2022-08-07] MEDS: Ketorolac Tromethamine 0.5% Op 5 ML DROPS 1 DROP EYE-RIGHT ×3 (07:19→07:21)
[2022-08-07] MEDS: Tetracaine HCl/PF 0.5% Oph Sol 4 ML DROPS 1 DROP EYE-RIGHT (07:19)
[2022-08-07] MEDS: Tropicamide 1 % Ophth Sol 3 ML BTL 1 DROP EYE-RIGHT ×3 (07:19→07:21)
[2022-08-07] MEDS: Cyclopentolate 1 % Ophth Sol 2 ML DRPBTL 1 DROP EYE-RIGHT ×3 (07:19→07:21)
--- NOTE | 2022-08-07 07:25 | P.CONAN_ITS ---
[facility] Active Problems Active Problems: All Active Problems (Updated 06/07/22 @ 14:44 by Genaro Dubon MD) Contusion of leg, left (Acute) Rotator cuff tendonitis (Acute) Arthritis of right acromioclavicular joint (Acute) Shoulder pain, right (Acute) Constipation (Acute) Osteopenia (Acute) Abdominal pain (Acute) Bicipital tendinitis of right shoulder (Acute) Pulmonary nodule (Acute) Somatic dysfunction of left sacroiliac joint (Acute) GERD (gastroesophageal reflux disease) (Acute) IBS (irritable bowel syndrome) (Acute) Hypercholesterolemia (Acute) History of left breast cancer (Acute) Hypothyroidism (Acute) Hypertension (Acute) Past Medical History Medical History Adult general medical exam Anxiety Breast density Chest tightness Diverticular disease Drug allergy, antibiotic Family history of malignant neoplasm of endometrium Family history of pancreatic cancer History of left breast cancer Hypercholesterolemia Hypertension Hypothyroidism Insomnia Irritable bowel syndrome Pulmonary nodule Shortness of breath Family History Family History Father History of cirrhosis Lung cancer Mother Pancreatic cancer CVD (cardiovascular disease) Hypertension Sister History of endometrial cancer Brother No problems noted. Other Substance use disorder Family history of problems with anesthesia: No Surgical History Surgical History History of cataract surgery History of colonoscopy History of laparoscopy History of left mastectomy History of tonsillectomy History of Problems with Anesthesia: No Social History Social History Household Members: None Housing: House Are you a primary home care consultant to a significant other at home: No Do you presently have visiting nurse or other home services: No Alcohol intake: current Alcohol intake frequency: holidays/special occasions only Alcohol type: beer and wine Patient Tobacco Use Status: Never used Tobacco e-Cigarette/Vaping Use: Never Used Second Hand Smoke Exposure: No Use of substances other than those prescribed or required for medical reasons: No Have you been hit, kicked, punched, or otherwise hurt by someone within the past year? 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) Cognitive needs: No Hearing needs: No Vision needs: Yes Meds Allergies Allergy/AdvReac Type Severity Reaction Status Date / Time Zqphjcf-[id number]-PoB Reductase Allergy Mild ACHY Verified 07/21/22 10:03 Inhibitor [KZUCZNM-GEL-RAL REDUCTASE INHIBITOR] atorvastatin [From Lipitor] Allergy Unknown Muscle Pain Verified 07/21/22 10:03 ciprofloxacin [Cipro] Allergy Unknown Anaphylaxis Verified 07/21/22 10:03 metronidazole Allergy Unknown anaphylaxis Verified 07/21/22 10:03 rosuvastatin [From Crestor] Allergy Unknown Muscle Pain Verified 07/21/22 10:03 simvastatin Allergy Unknown Muscle Pain Verified 07/21/22 10:03 Sulfa (Sulfonamide Allergy Unknown diarrhea Verified 07/21/22 10:03 Antibiotics) sulfamethoxazole Allergy Unknown Unknown Verified 07/21/22 10:03 [From Bactrim] trimethoprim [From Bactrim] Allergy Unknown Unknown Verified 07/21/22 10:03 lisinopril AdvReac Intermediate Cough Verified 07/21/22 10:38 SEASONAL ALLERGIES Allergy Intermediate ITCHING Uncoded 07/21/22 10:03 Active Medications: Current Medications Cyclopentolate HCl (Cyclopentolate 1 % Ophth Marine 2 Ml Drpbtl) 1 drop EYE-RIGHT Q5M GURDEEP Stop: 08/07/22 07:26 Last Admin: 08/07/22 07:21 Dose: 1 drop Ketorolac Tromethamine (Ketorolac Tromethamine 0.5% Op 5 Ml Drops) 1 drop EYE- RIGHT Q5M GURDEEP Stop: 08/07/22 07:26 Last Admin: 08/07/22 07:21 Dose: 1 drop Phenylephrine HCl (Phenylephrine Hcl 2.5% Oph Marine 2 Ml Bottle) 1 drop EYE-RIGHT Q5M GURDEEP Stop: 08/07/22 07:26 Last Admin: 08/07/22 07:21 Dose: 1 1000units Povidone Iodine (Povidone Iodine 5 % Ophth Soln 30 Ml Bottle) 1 appl EYE-RIGHT PREOP PRN PRN Reason: Pre-Op Surgical Implant Prophy Tropicamide (Tropicamide 1 % Ophth Marine 3 Ml Btl) 1 drop EYE-RIGHT Q5M GURDEEP Stop: 08/07/22 07:26 Last Admin: 08/07/22 07:21 Dose: 1 drop Home Medications Medication Instructions Recorded Confirmed Last Taken Type Saccharomyces boulardii 250 mg 250 mg PO DAILY 05/27/20 07/21/22 Unknown History capsule (Daily Probiotic (S. boulardii)) calcium carbonate 600 mg-vitamin 1 cap PO DAILY 05/27/20 07/21/22 Unknown History D3 5 mcg (200 unit) capsule (Calcium 600 + D(3)) fluticasone propionate 50 2 spray intranasal DAILY 05/27/20 07/21/22 Unknown History mcg/actuation nasal spray,suspension ketoconazole 2 % shampoo 1 appl topical 2XW 05/27/20 07/21/22 Unknown History multivitamin 1 tab PO DAILY 12/29/21 07/21/22 Unknown History azelaic acid 15 % topical gel 1 appl topical BID 01/23/22 07/21/22 Unknown History Exam Exam Date and Time: August 07, 2022 0725 Height,Weight and Vital Signs: Height 5 ft 3 in Weight 60.781 kg Last Vital Signs Temp 98 F 08/07/22 07:04 Pulse 77 08/07/22 07:04 Resp 20 08/07/22 07:04 BP 156/77 H 08/07/22 07:04 Pulse Ox 97 08/07/22 07:04 O2 Del Method 08/07/22 07:04 Airway Mallampati Class: II TM Dist: >3cm Neck ROM: Full Loose/Missing/Broken Teeth: No Heart: RRR Lungs: CTA Assessment and Plan Assessment Anesthesia Assessment: Anesthesia Plan Discussed and Chart Reviewed Final Anesthetic Review Family History of Problems with Anesthesia: No History of Problems with Anesthesia: No NPO: Yes ASA Class: II Final Preanesthetic Review: Meds/Allgs Chart Reviewed, Consent Obtained/Reviewed and Anes Risks/Benef Reviewed Patient Risk: Low Procedure Risk: Low Anesthetic Plan Anesthetic Plan: MAC: Disposition: Standard PACU
--- NOTE | 2022-08-07 08:37 | P.PCNO_ITS ---
Ophthalmology Procedure Procedure Date of Service: 08/07/22 Ophthalmology Viscoelastic: Healon Duet Dual Pack Pro Ophthalmology Lenses: TECNIS ZXR00 (19) Procedure Notes: PREOPERATIVE DIAGNOSIS: Decreased visual acuity right eye secondary to cataract POSTOPERATIVE DIAGNOSIS: Same PROCEDURE: Right cataract extraction with multifocal intraocular lens insertion SURGEON: Dimitris Luis M.D. ANESTHESIA: Topical/MAC ESTIMATED BLOOD LOSS: None COMPLICATIONS: None After obtaining informed consent, the patient was brought to the operating room suite and placed in the supine position. After adequate sedation per anesthesia, topical drops of Tetracaine were given to the right eye. The eye was then prepped and draped in the usual sterile fashion. The operating room microscope was then positioned over the operative eye and a lid speculum placed. A paracentesis was created. Viscoelastic was then instilled into the anterior chamber. A three plane incision was then created temporally, utilizing a 2.85 mm keratome. Capsulotomy forceps were then utilized to create a circular tear capsulotomy. Hydrodissection and hydrodelineation were carried out until adequate mobilization of the nucleus occurred. Phacoemulsification was then utilized to remove the dense central nucl eus followed by removal of the cortical material utilizing the automated aspiration irrigation unit. Viscoelastic was instilled into the posterior capsular bag followed by placement of a multifocal posterior chamber intraocular lens without difficulty. The residual Viscoelastic was then removed utilizing the automated IA machine. The wound was checked and found to be watertight. The patient tolerated the procedure well and the lid speculum was removed. Intracameral injection of Vigamox 0.1 mL followed by a subtenon injection of Kenalog-40 0.2 mL were administered. The patient will be seen in the a.m.
[2022-08-07 09:02] VITALS: BP 152/77; PULSE 69; RESP 18; TEMP 36.5; O2SAT 98
== END 2022-08-07 09:17 | disposition home or self-care (01) ==
PROVIDERS: PCP Internal Medicine; Visit Provider Ophthalmology
PROC: (CPT 66984; principal; 2022-08-07 09:00)
DX: H25.11 Age-related nuclear cataract, right eye (principal); H52.4 Presbyopia; H40.013 Open angle with borderline findings, low risk, bilateral; H04.123 Dry eye syndrome of bilateral lacrimal glands; E03.9 Hypothyroidism, unspecified; E78.00 Pure hypercholesterolemia, unspecified; Z85.3 Personal history of malignant neoplasm of breast; Z79.899 Other long term (current) drug therapy; Z88.8 Allergy status to other drugs, medicaments and biological substances
CPT/HCPCS: 66984; J2250; J3301; V2788

== ENCOUNTER 2022-09-13 10:18 | Outpatient (REF) | payer MEDICARE, SELFPAY ==
[2022-09-13 12:14] LABS: Hematocrit 47.3 % (37.0-47.0); Hemoglobin 15.7 g/dl (12.0-16.0); Mean Corpuscular HGB Conc 33.2 g/dl (31.0-35.0); Mean Corpuscular Hemoglobin 30.3 pg (27.0-33.0); Mean Corpuscular Volume 91.3 fL (80.0-98.0); Mean Platelet Volume 9.5 fL (9.4-12.3); Platelet Count 349 X10*3/uL (160-400); Red Blood Count 5.18 X10*6/uL (4.20-5.50); Red Cell Distribution Width 12.7 % (11.0-16.0); White Blood Count 9.9 X10*3/uL (4.8-10.8)
[2022-09-13 13:08] LABS: Thyroid Stimulating Hormone 1.46 uIU/mL (0.32-4.0)
[2022-09-13 13:09] LABS: Anion Gap 16 (12-20)
[2022-09-13 13:14] LABS: Alanine Aminotransferase 25 U/L (0-31); Albumin Level 4.4 g/dL (3.5-5.0); Alkaline Phosphatase 51 U/L (39-117); Aspartate Amino Transferase 31 U/L (5-31); Bilirubin Direct 0.2 mg/dL (0.0-0.5); Bilirubin Total 0.6 mg/dL (0.0-1.0); Blood Urea Nitrogen 13 mg/dL (9-16); Calcium 9.6 mg/dL (8.4-10.2); Carbon Dioxide 27 mmol/L (22-29); Chloride 100 mmol/L (96-108); Estimated Glomerular Filt Rate > 60; Glucose Random 101 mg/dL (60-115); Sodium 139 mmol/L (135-145)
== END 2022-09-13 10:19 | disposition home or self-care (01) ==
LOC: HO.HMGCLDS 10:18
PROVIDERS: PCP Internal Medicine; Visit Provider Internal Medicine
DX: K58.9 Irritable bowel syndrome, unspecified (principal); E03.9 Hypothyroidism, unspecified
CPT/HCPCS: 36415; 80048; 80076; 84443; 85027

== ENCOUNTER 2023-01-23 09:23 | Outpatient (AMB) | payer MEDICARE, SELFPAY ==
[2023-01-23 09:39] VITALS: BP 136/72; PULSE 70; O2SAT 98; BMI 23.7
--- NOTE | 2023-01-23 09:39 | MHC.PC.OV ---
Vital Signs 01/23/23 09:39 Height 5 ft 3 in Weight 134 lb BMI 23.7 BP 136/72 Blood Pressure Location Lt brachial Position Sitting Pulse 70 Pulse Source Pulse Oximeter Pulse Oximetry (%) 98 Oxygen Delivery Method Room Air Intake Visit Reasons: 6mth f/u Allergies Witjuvp-VHQ-WoX Reductase Inhibitor [[id number] REDUCTASE INHIBITOR] Allergy (Mild, Verified 01/23/23 09:39) ACHY atorvastatin [From Lipitor] Allergy (Unknown, Verified 01/23/23 09:39) Muscle Pain ciprofloxacin [Cipro] Allergy (Unknown, Verified 01/23/23 09:39) Anaphylaxis metronidazole Allergy (Unknown, Verified 01/23/23 09:39) anaphylaxis rosuvastatin [From Crestor] Allergy (Unknown, Verified 01/23/23 09:39) Muscle Pain simvastatin Allergy (Unknown, Verified 01/23/23 09:39) Muscle Pain Sulfa (Sulfonamide Antibiotics) Allergy (Unknown, Verified 01/23/23 09:39) diarrhea sulfamethoxazole [From Bactrim] Allergy (Unknown, Verified 01/23/23 09:39) Unknown trimethoprim [From Bactrim] Allergy (Unknown, Verified 01/23/23 09:39) Unknown hydrochlorothiazide Adverse Reaction (Intermediate, Verified 01/23/23 09:39) myalgia lisinopril Adverse Reaction (Intermediate, Verified 01/23/23 09:39) Cough SEASONAL ALLERGIES Allergy (Intermediate, Uncoded 01/23/23 09:39) ITCHING Medication List - Last Reconciled 01/23/23 by Laurence Gurrola, amlodipine 5 mg PO DAILY azelaic acid 15% 1 appl topical BID calcium carbonate-vitamin D3 600 mg-5 mcg (200 unit) (Calcium 600 + D(3)) 1 cap PO DAILY dicyclomine 10 mg PO BID diphenoxylate-atropine 2.5-0.025 mg (Lomotil) 1 tab PO BID PRN ezetimibe (Zetia) 10 mg PO DAILY fluticasone propionate 50 mcg/actuation 2 sprays intranasal DAILY hydrocortisone acetate (Anusol-HC) 25 mg NE BEDTIME ketoconazole 2% 1 appl topical 2XW levothyroxine 75 mcg PO QAM 90 days [mastectomy bra (left) As directed] multivitamin 1 tab PO DAILY omeprazole 20 mg PO DAILY prosthetics As directed raloxifene 60 mg orally Saccharomyces boulardii (Daily Probiotic (S. boulardii)) 250 mg PO DAILY Tobacco use date assessed: 09/19/22 Fall risk assessment: No Falls in past year Last assessed Fall Risk: 01/23/23 Dental Screening Dental Screen Date: 01/23/23 Did you have a dental visit in the last 12 months?: Yes Did you have a dental problem in the last 6 months where you did not have access to dental care?: No Was dental information given to patient?: Patient has dentist HPI 6mth f/u HPI Details 73-year-old female with history of left breast cancer hypothyroidism hypertension hypercholesterolemia GERD and osteopenia last seen in June 2022.. Patient follows up with hematology oncology seen January 02. had cataract surgery , R eye not as great. [facility] Medical History (Updated 01/23/23 @ 10:11 by Laurence Gurrola MD) Adult general medical exam Anxiety Breast density Chest tightness Diverticular disease Drug allergy, antibiotic Family history of malignant neoplasm of endometrium Family history of pancreatic cancer History of left breast cancer Hypercholesterolemia Hypertension Hypothyroidism Insomnia Irritable bowel syndrome Pulmonary nodule Shortness of breath Surgical History History of cataract surgery History of colonoscopy History of laparoscopy History of left mastectomy History of tonsillectomy Family History Father History of cirrhosis Lung cancer Mother Pancreatic cancer CVD (cardiovascular disease) Hypertension Sister History of endometrial cancer Brother No problems noted. 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 1. Little interest or pleasure in doing things: not at all 2. Feeling down, depressed, or hopeless: not at all 3. Trouble falling or staying asleep, or sleeping too much: several days 4. Feeling tired or having little energy: several days 5. Poor appetite or overeating: several days 6. Feeling bad about yourself - or that you are a failure or have let yourself or your family down: not at all 7. Trouble concentrating on things, such as reading the newspaper or watching television: not at all 8. Moving or speaking so slowly that other people could have noticed. Or the opposite - being so fidgety or restless that you have been moving around a lot more than usual: not at all 9. Thoughts that you would be better off or of hurting yourself in some way: not at all Total score: 3 Depression Screening Interpretation: Negative Source: Developed by Drs. Abran Lizama, Emilee Philippe, Mansoor Rivas and colleagues, with an educational smith from [employer]. Thrive Questionnaire Date Thrive assessed: 09/19/22 AUDIT C Alcohol Use Questionnaire (AUDIT-C) 1. How often do you have a drink containing alcohol?: Never 3. How often do you have six or more drinks on one occasion?: Never Total Score: 0 Score Reviewed/Action Taken: No FEDERICO-7 AMB Questionnaire FEDERICO-7 Date FEDERICO - 7 assessed: 09/19/22 Source: Developed by Drs. Abran Lizama, Emilee Philippe, Mansoor Rivas and colleagues, with an educational smith from [employer]. Physical exam (Primary Care) Vital Signs: Last Vital Signs Pulse 70 01/23/23 09:39 BP 136/72 01/23/23 09:39 Pulse Ox 98 01/23/23 09:39 Oxygen Delivery Method Room Air 01/23/23 09:39 BMI result Body Mass Index 23.7 Tobacco/Smoking Status: Tobacco use Status Tobacco use date assessed 09/19/22 01/23/23 09:43 Patient Tobacco Use Status Never used Tobacco 01/23/23 09:43 e-Cigarette/Vaping Use Never Used 01/23/23 09:43 PHQ-9: PHQ-9 Score PHQ-9: Total score 3 01/23/23 09:43 Depression Screening Interpretation: Negative Thrive Assessment: Date of Thrive Assessment Date Thrive assessed 09/19/22 01/23/23 09:43 Const General: alert; No acute distress Eyes Conjunctivae: conjunctivae normal Resp Auscultation: clear to auscultation bilaterally Cardio Rate: regular rate Rhythm: regular rhythm GI Inspection: Yes normal to inspection Extrem General: Yes normal to inspection and No edema Assessment and Plan Assessment & Plan (1) GERD (gastroesophageal reflux disease): Code(s): K21.9 - Gastro-esophageal reflux disease without esophagitis Plan: Avoid the foods that causes that usually spicy foods, tomato products, juices, coffee, soda and foods that your sensitive to. After eating do not lie down, allow 3-4 hours before in lie down. And keep the head of bed above 30 degrees to avoid the acid from going up. (2) IBS (irritable bowel syndrome): Code(s): K58.9 - Irritable bowel syndrome without diarrhea Plan: Eat healthy keep well hydrated, fiber and diet (3) Hypercholesterolemia: Code(s): E78.00 - Pure hypercholesterolemia, unspecified Plan: Avoid fried foods, chicken skin, eggs, butter margarine, pastries and meat. Be it pork or beef they have a lot of cholesterol LDL goal of less than 130 and triglyceride of less than 150 patient is Zetia 10 mg once a day cannot tolerate statins (4) History of left breast cancer: Code(s): Z85.3 - Personal history of malignant neoplasm of breast Plan: Up-to-date with mammogram and continue to follow-up (5) Hypothyroidism: Comment: History of Maia's Code(s): E03.9 - Hypothyroidism, unspecified Qualifiers: Hypothyroidism type: acquired Qualified Code(s): E03.9 - Hypothyroidism, unspecified Plan: Continue with thyroid medication (6) Hypertension: Code(s): I10 - Essential (primary) hypertension Qualifiers: Hypertension type: essential hypertension Qualified Code(s): I10 - Essential (primary) hypertension Plan: Continue with blood pressure medication. Decrease salt intake and exercise patient takes amlodipine 2.5 mg once a day (7) Chronic left sacroiliac pain: Code(s): M53.3 - Sacrococcygeal disorders, not elsewhere classified; G89.29 - Other chronic pain Orders: Orders Vitamin B12 and Folate 2 Months E03.9 - Hypothyroidism, unspecified Comprehensive Met. Panel 2 Months E03.9 - Hypothyroidism, unspecified Lipid Panel 2 Months E03.9 - Hypothyroidism, unspecified, E78.00 - Pure hypercholesterolemia, unspecified Free T4 (Free Thyroxine) 2 Months E03.9 - Hypothyroidism, unspecified Thyroid Stimulating Hormone 2 Months E03.9 - Hypothyroidism, unspecified Vitamin D 25-OH Total 2 Months E03.9 - Hypothyroidism, unspecified Complete Blood Count Auto Diff 2 Months E03.9 - Hypothyroidism, unspecified C Reactive Protein Today E03.9 - Hypothyroidism, unspecified Erythrocyte Sedimentation Rate Today E03.9 - Hypothyroidism, unspecified Referrals Orthopedics Referral G89.29 - Other chronic pain, M53.3 - Sacrococcygeal disorders, not elsewhere classified Medications: Changed From amlodipine 2.5 mg PO DAILY 30 tabs 3RF I10 - Essential (primary) hypertension To amlodipine 5 mg PO DAILY 90 tabs 2RF I10 - Essential (primary) hypertension Coding Level of Care Code Est Pt Level 4 (55477) Diagnoses GERD (gastroesophageal reflux disease) K21.9 IBS (irritable bowel syndrome) K58.9 Hypercholesterolemia E78.00 History of left breast cancer Z85.3 Hypothyroidism E03.9 Hypothyroidism type: acquired Hypertension I10 Hypertension type: essential hypertension Chronic left sacroiliac pain M53.3; G89.29 Additional Codes PHQ-9 - 42128 - PHQ-9 Billing: Y ([id number])
== END 2023-01-23 10:21 | disposition home or self-care (01) ==
PROVIDERS: Visit Provider Internal Medicine
DX: K21.9 Gastro-esophageal reflux disease without esophagitis (principal); K58.9 Irritable bowel syndrome, unspecified; Z85.3 Personal history of malignant neoplasm of breast; I10 Essential (primary) hypertension; E03.9 Hypothyroidism, unspecified; E78.00 Pure hypercholesterolemia, unspecified; M53.3 Sacrococcygeal disorders, not elsewhere classified; G89.29 Other chronic pain
CPT/HCPCS: 99214

== ENCOUNTER 2023-01-27 07:23 | Emergency (ER) | payer MEDICARE, SELFPAY ==
[2023-01-27 07:25] VITALS: BP 162/76; PULSE 94; RESP 18; TEMP 36.7; O2SAT 100; BMI 23.9
[2023-01-27] MEDS: Fluorescein Sodium STRIP 1 STRIP EYE-RIGHT (07:55)
[2023-01-27] MEDS: Tetracaine HCl/PF 0.5% Oph Sol 4 ML DROPS 1 DROP EYE-RIGHT (07:55)
--- NOTE | 2023-01-27 08:20 | ED_ITS ---
HPI - Eye Problem General Chief complaint: Eye Problems Stated complaint: r eye inj Time Seen by Provider: 01/27/23 07:49 Source: patient Mode of arrival: ambulatory Limitations: no limitations History of Present Illness HPI Narrative: 73 year old female with a history of hypertension presents to the ER here with complaints of right eye tearing, irritation, redness after being hit by a branch yesterday. No vision changes. Related Data Home Medications Medication Instructions Recorded Confirmed Saccharomyces boulardii 250 mg 250 mg PO DAILY 05/27/20 01/23/23 capsule (Daily Probiotic (S. boulardii)) calcium carbonate 600 mg-vitamin 1 cap PO DAILY 05/27/20 01/23/23 D3 5 mcg (200 unit) capsule (Calcium 600 + D(3)) fluticasone propionate 50 2 spray intranasal DAILY 05/27/20 01/23/23 mcg/actuation nasal spray,suspension ketoconazole 2 % shampoo 1 appl topical 2XW 05/27/20 01/23/23 multivitamin 1 tab PO DAILY 12/29/21 01/23/23 azelaic acid 15 % topical gel 1 appl topical BID 01/23/22 01/23/23 Previous Rx's Medication Instructions Recorded omeprazole 20 mg capsule,delayed 20 mg PO DAILY #60 caps 01/28/21 release dicyclomine 10 mg capsule 10 mg PO BID #180 caps 04/21/21 prosthetics #1 ea 02/14/22 mastectomy bra (left) #4 ea 03/21/22 levothyroxine 75 mcg tablet 75 mcg PO QAM 90 days #90 tabs 06/08/22 diphenoxylate-atropine 2.5 1 tab PO BID PRN diarrhea #14 tabs 09/13/22 mg-0.025 mg tablet (Lomotil) hydrocortisone acetate 25 mg 25 mg IN BEDTIME #12 ea 09/13/22 rectal suppository (Anusol-HC) raloxifene 60 mg tablet See Rx Instructions .Route 11/23/22 .COMPLEX #90 tabs ezetimibe 10 mg tablet (Zetia) 10 mg PO DAILY #90 tabs 01/10/23 amlodipine 5 mg tablet 5 mg PO DAILY #90 tabs 01/23/23 erythromycin 5 mg/gram (0.5 %) eye 1 appl ophthalmic (eye) DAILY #3.5 01/27/23 ointment grams Allergies Allergy/AdvReac Type Severity Reaction Status Date / Time [id number] Reductase Allergy Mild ACHY Verified 01/27/23 07:30 Inhibitor [[id number] REDUCTASE INHIBITOR] atorvastatin [From Lipitor] Allergy Unknown Muscle Pain Verified 01/27/23 07:30 ciprofloxacin [Cipro] Allergy Unknown Anaphylaxis Verified 01/27/23 07:30 metronidazole Allergy Unknown anaphylaxis Verified 01/27/23 07:30 rosuvastatin [From Crestor] Allergy Unknown Muscle Pain Verified 01/27/23 07:30 simvastatin Allergy Unknown Muscle Pain Verified 01/27/23 07:30 Sulfa (Sulfonamide Allergy Unknown diarrhea Verified 01/27/23 07:30 Antibiotics) sulfamethoxazole Allergy Unknown Unknown Verified 01/27/23 07:30 [From Bactrim] trimethoprim [From Bactrim] Allergy Unknown Unknown Verified 01/27/23 07:30 hydrochlorothiazide AdvReac Intermediate myalgia Verified 01/27/23 07:30 lisinopril AdvReac Intermediate Cough Verified 01/27/23 07:30 SEASONAL ALLERGIES Allergy Intermediate ITCHING Uncoded 01/23/23 09:39 Review of Systems Review of Systems: Yes all other systems are reviewed and are negative Constitutional: Constitutional: Reports no additional constitutional complaints, Denies body ache(s), Denies chills, Denies fever(s), Denies headache(s) and Denies weakness Eyes: Eyes: Reports no additional eye complaints, Denies change in vision, Reports eye discharge, Reports irritation, Denies eye pain and Denies photophobia ENT: Reports system reviewed and no additional complaints, except as documented, Denies dizziness, Denies headache(s), Denies nasal congestion, Denies nasal discharge and Denies neck pain Cardiovascular: Cardiovascular: Reports no additional cardiovascular complaints, Denies chest pain, Denies leg edema and Denies dyspnea Respiratory: Respiratory: Reports no additional respiratory complaints, Denies cough and Denies dyspnea Gastrointestinal: Gastrointestinal: Reports no additional gastrointestinal complaints, Denies abdominal pain, Denies diarrhea, Denies nausea and Denies vomiting Genitourinary: Genitourinary: Reports no additional female genitourinary complaints and Denies urinary incontinence Musculoskeletal: Musculoskeletal: Reports no additional musculoskeletal complaints, Denies back pain, Denies arthralgias, Denies joint swelling, Denies neck pain, Denies numbness and Denies tingling Integumentary/Breasts: Skin/Breast: Reports system reviewed and no additional complaints, except as docu and Denies rash Neurologic: Reports system reviewed and no additional complaints, except as documented, Denies Abnormal speech present, Denies dizziness, Denies headache(s), Denies numbness, Denies tingling and Denies weakness PMFSH Past Medical History Attestation statement: The following information was validated with the patient. Source: old records reviewed and nursing notes reviewed Medical History Adult general medical exam Anxiety Breast density Chest tightness Diverticular disease Drug allergy, antibiotic Family history of malignant neoplasm of endometrium Family history of pancreatic cancer History of left breast cancer Hypercholesterolemia Hypertension Hypothyroidism Insomnia Irritable bowel syndrome Pulmonary nodule Shortness of breath Surgical History History of cataract surgery History of colonoscopy History of laparoscopy History of left mastectomy History of tonsillectomy Family History Family History Father History of cirrhosis Lung cancer Mother Pancreatic cancer CVD (cardiovascular disease) Hypertension Sister History of endometrial cancer Brother No problems noted. 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) Cognitive needs: No Hearing needs: No Vision needs: Yes Physical Exam Vital Signs: Vital Signs: Last Vital Signs Temp 98.1 F 01/27/23 07:25 Pulse 94 01/27/23 07:25 Resp 18 01/27/23 07:25 BP 162/76 H 01/27/23 07:25 Pulse Ox 100 01/27/23 07:25 O2 Del Method Room Air 01/27/23 07:25 BMI result Body Mass Index 23.9 Const: General: cooperative, healthy appearing, comfortable and no acute distress Orientation/consciousness: patient oriented x3 Limitations: no limitations HEENT: Head: Yes normal to inspection Ears: hearing grossly normal bilaterally General nose exam: Normal external nose present Face and sinus: Yes normal facial exam Mouth: Normal oral and palatal mucosa present Throat: Yes posterior oropharynx normal Eyes: General: appearance normal, both eyes and all related structures Visual Taylor: normal visual taylor by confrontation Alignment and Position: alignment normal Periorbital: periorbital findings normal Eyelids: Yes eyelids normal Conjunctivae: conjunctival abnormal (right eye injection ) Sclerae: scleral abnormal (right scleral edema ) Corneas: corneas abnormal on the right fluorescein used and abrasion (7 o clock position-med) central and fluorescein used Pupils: Equal, round and reactive pupils present EOM: EOMs intact bilaterally Direct Ophthalmoscopy: normal light reflex and No photophobia Neck: Neck: Yes normal visual inspection Chest: Chest palpation & inspection: normal inspection of the chest Resp: Effort & Inspection: normal respiratory effort Auscultation: clear to auscultation bilaterally Cardio: Rate: regular rate Rhythm: regular rhythm Peripheral pulses: Peripheral pulses 2+ throughout GI: Inspection: Yes normal to inspection Palpation (GI): Soft to palpation and nontender Auscultation: normal bowel sounds Back/Spine/Pelvis: Thoracic/Lumbar Spine: thoracic and lumbar spine normal to inspection Skin: General skin exam: no rashes or lesions noted Neuro: General: patient oriented x3, no focal motor deficits and normal sensation to monofilament Cranial nerves: Yes Equal, round and reactive pupils present Cognition (Neuro): normal cognition Speech: No Abnormal speech present Gait exam (Neuro): Normal gait present Motor exam (neuro): 5/5 motor strength present throughout Extrem: General: Yes normal to inspection Course Course Course Narrative: Exam c/w with corneal abrasion. Topical erythromycin applied. Patient can follow-up with her eye doctor outpatient as needed. Reviewed worrisome signs/symptoms with patient and when to seek additional care. Comfortable with plan for discharge home. Medications Administered Discontinued Medications Generic Name Dose Route Start Last Admin Trade Name Freq PRN Reason Stop Dose Admin Fluorescein Sodium 1 strip 01/27/23 07:49 01/27/23 07:55 Fluorescein Sodium Strip EYE-RIGHT 01/27/23 07:50 1 strip ONCE ONE Administration Tetracaine HCl 1 drop 01/27/23 07:49 01/27/23 07:55 Tetracaine Hcl/Pf 0.5% Oph Marine 4 Ml Drops EYE-RIGHT 01/27/23 07:50 1 drop ONCE ONE Administration Medical Decision Making Medical Decision Making [facility] Narrative: 73 yo female here with complaints of right eye tearing, redness and irritation with no vision changes after being hit in the eye yesterday with a vazquez branch. WIll need eye exam. asymptomatic HTN Differential Diagnosis Differential Diagnoses: The differential diagnosis associated with the presentation includes corneal abrasion, corneal fb Prescription Management I considered prescription management with: Antibiotic topical antibiotic ointment for corneal abrasion Discharge Plan Discharge Clinical Impression: Corneal abrasion Patient Disposition: Home, Self-Care Instructions: Corneal Abrasion (ED) Additional Instructions: Tylenol/motrin for pain as needed Follow-up with your site specialist Prescriptions: New erythromycin 5 mg/gram (0.5 %) ointment 1 appl ophthalmic (eye) DAILY Qty: 3.5 0RF No Action dicyclomine 10 mg capsule 10 mg PO BID Qty: 180 1RF (DME) prosthetics Kit See Rx Instructions .Route Qty: 1 0RF Rx Instructions: As directed (DME) mastectomy bra (left) to fit insert See Rx Instructions .Route .MEDSUPPLY Qty: 4 0RF Rx Instructions: As directed levothyroxine 75 mcg tablet 75 mcg PO QAM 90 Days Qty: 90 2RF ezetimibe [Zetia] 10 mg tablet 10 mg PO DAILY Qty: 90 3RF multivitamin Tablet 1 tab PO DAILY raloxifene 60 mg Tablet See Rx Instructions .ROUTE .COMPLEX Qty: 90 4RF Rx Instructions: 60 mg orally Calcium 600 + D(3) 600 mg calcium- 200 unit capsule 1 cap PO DAILY fluticasone propionate 50 mcg/actuation spray,suspension 2 spray intranasal DAILY Rx Instructions: administer into each nostril ketoconazole 2 % shampoo 1 appl topical 2XW Saccharomyces boulardii [Daily Probiotic (S. boulardii)] 250 mg capsule 250 mg PO DAILY Rx Instructions: swallow whole omeprazole 20 mg capsule,delayed release(DR/EC) 20 mg PO DAILY Qty: 60 0RF azelaic acid 15 % gel 1 appl topical BID amlodipine 5 mg tablet 5 mg PO DAILY Qty: 90 2RF diphenoxylate-atropine [Lomotil] 2.5-0.025 mg tablet 1 tab PO BID PRN (Reason: diarrhea) Qty: 14 0RF hydrocortisone acetate [Anusol-HC] 25 mg suppository 25 mg IN BEDTIME Qty: 12 0RF Referrals: Dimitris Luis [Physician] - 2 weeks (See him sooner for any with persistent symptoms more than several days)
[2023-01-27] MEDS: Erythromycin Base 0.5% Oph Oin 1 GM TUBE 1 CM EYE-RIGHT (08:57)
== END 2023-01-27 09:05 | disposition home or self-care (01) ==
PROVIDERS: Emergency Provider Emergency Medicine; PCP Internal Medicine
DX: S05.01XA Injury of conjunctiva and corneal abrasion without foreign body, right eye, initial encounter (principal); W22.8XXA Striking against or struck by other objects, initial encounter; Y93.9 Activity, unspecified; Y92.9 Unspecified place or not applicable; Y99.9 Unspecified external cause status
CPT/HCPCS: 99283

== ENCOUNTER 2023-01-31 09:14 | Outpatient (REF) | payer MEDICARE, SELFPAY ==
--- NOTE | ~2023-01-31 | XR_ITS ---
EXAMINATION: XR LUMBOSACRAL SPINE CLINICAL INFORMATION: Sacrococcygeal disorder. COMPARISON: None available. TECHNIQUE: 3 views. FINDINGS: There is minimal levoscoliosis along the lower lumbar spine. Loss of L4-L5 and L5-S1 disc heights is noted. There is moderate left L4-L5 facet joint arthropathy. No acute fracture, lytic or sclerotic process seen. The paravertebral soft tissues are normal. The SI joints are normal. XR/XR lumbar spine 2-3V IMPRESSION: Mild levoscoliosis of lower lumbar spine with degenerative disc changes. No visible acute fracture, dislocation or subluxation seen.
== END 2023-01-31 09:15 | disposition home or self-care (01) ==
LOC: HO.HOSX 09:14
PROVIDERS: PCP Internal Medicine; Visit Provider Physical Medicine & Rehabilitation
DX: M53.3 Sacrococcygeal disorders, not elsewhere classified (principal); M54.9 Dorsalgia, unspecified
CPT/HCPCS: 72100

== ENCOUNTER 2023-02-01 08:32 | Outpatient (AMB) | payer MEDICARE, SELFPAY ==
[2023-02-01 08:34] VITALS: BP 134/78; PULSE 78; O2SAT 99; BMI 23.7
--- NOTE | 2023-02-01 08:34 | AM.OFFVISMDC ---
Intake Vital Signs 02/01/23 08:34 Height 5 ft 3 in Weight 134 lb BMI 23.7 BP 134/78 Blood Pressure Location Lt brachial Position Sitting Pulse 78 Pulse Source Pulse Oximeter Temp Source Skin Pulse Oximetry (%) 99 Oxygen Delivery Method Room Air Intake Visit Reasons: SIM G0439 Intake Note: Patient is here for an Annual Wellness Visit. Allergies Ivmtxwz-XQU-EsQ Reductase Inhibitor [UASSSDM-NXC-MCO REDUCTASE INHIBITOR] Allergy (Mild, Verified 02/01/23 09:01) ACHY atorvastatin [From Lipitor] Allergy (Unknown, Verified 02/01/23 09:01) Muscle Pain ciprofloxacin [Cipro] Allergy (Unknown, Verified 02/01/23 09:01) Anaphylaxis metronidazole Allergy (Unknown, Verified 02/01/23 09:01) anaphylaxis rosuvastatin [From Crestor] Allergy (Unknown, Verified 02/01/23 09:01) Muscle Pain simvastatin Allergy (Unknown, Verified 02/01/23 09:01) Muscle Pain Sulfa (Sulfonamide Antibiotics) Allergy (Unknown, Verified 02/01/23 09:01) diarrhea sulfamethoxazole [From Bactrim] Allergy (Unknown, Verified 02/01/23 09:01) Unknown trimethoprim [From Bactrim] Allergy (Unknown, Verified 02/01/23 09:01) Unknown hydrochlorothiazide Adverse Reaction (Intermediate, Verified 02/01/23 09:01) myalgia lisinopril Adverse Reaction (Intermediate, Verified 02/01/23 09:01) Cough SEASONAL ALLERGIES Allergy (Intermediate, Uncoded 02/01/23 09:01) ITCHING Medication List - Last Reconciled 02/01/23 by MICHAEL Daniel amlodipine 5 mg PO DAILY azelaic acid 15% 1 appl topical BID calcium carbonate-vitamin D3 600 mg-5 mcg (200 unit) (Calcium 600 + D(3)) 1 cap PO DAILY diclofenac sodium 1% 2 grams topical QID diphenoxylate-atropine 2.5-0.025 mg (Lomotil) 1 tab PO BID PRN erythromycin 1 appl ophthalmic (eye) DAILY ezetimibe (Zetia) 10 mg PO DAILY fluticasone propionate 50 mcg/actuation 2 sprays intranasal DAILY ketoconazole 2% 1 appl topical 2XW levothyroxine 75 mcg PO QAM 90 days [mastectomy bra (left) As directed] multivitamin 1 tab PO DAILY prosthetics As directed raloxifene 60 mg orally Saccharomyces boulardii (Daily Probiotic (S. boulardii)) 250 mg PO DAILY Fall Risk Assessment Fall risk assessment: No Falls in past year Date Fall Risk Assessed: 02/01/23 HPI SWV G0439 HPI Details Patient is a 73-year-old female presents today for subsequent wellness visit. Patient of Dr. Gurrola. Today we discussed patient's need for tetanus vaccine, patient would like to hold off. Mammogram normal 05/2022 right breast, left breast history of mastectomy. Bone density screen 10/2021 which showed osteopenia. [place] of care was reviewed with the patient and she was provided with a screening schedule. End of life planning was discussed with the patient and she was provided with healthcare proxy and MOLST forms. [facility] Medical History (Updated 02/01/23 @ 09:25 by MICHAEL Daniel) Adult general medical exam Anxiety Breast density Chest tightness Diverticular disease Drug allergy, antibiotic Family history of malignant neoplasm of endometrium Family history of pancreatic cancer History of left breast cancer Hypercholesterolemia Hypertension Hypothyroidism Insomnia Irritable bowel syndrome Pulmonary nodule Sacroiliac joint dysfunction of left side Shortness of breath Surgical History (Updated 02/01/23 @ 09:25 by MICHAEL Daniel) History of cataract surgery History of colonoscopy History of laparoscopy History of left mastectomy History of tonsillectomy Family History Father History of cirrhosis Lung cancer Mother Pancreatic cancer CVD (cardiovascular disease) Hypertension Sister History of endometrial cancer Brother No problems noted. 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) Cognitive needs: No Hearing needs: No Vision needs: Yes Female Reproductive History Menstrual Age of Menarche: 14 Date of menopause: 06/25/02 Questionnaire Medicare Wellness Checkup [age] What gender do you identify with?: female During the past 4 weeks, how much have you been bothered by emotional problems such as feeling anxious, depressed, irritable, sad or downhearted, and blue?: not at all During the past 4 weeks, has your physical & emotional health limited your social activities with family, friends, neighbors, or groups?: not at all During the past 4 weeks, how much bodily pain have you generally had?: moderate pain (back ) During the past 4 weeks, was someone available to help you if you needed & wanted help?: yes, as much as I wanted During the past 4 weeks, what was the hardest physical activity you could do for at least 2 minutes?: moderate Can you get to places out of walking distance without help? (For eg., can you travel alone on buses, taxis or drive your car?): Yes Can you go shopping for groceries or clothes without someone's help?: Yes Can you prepare your own meals?: Yes Can you do your housework without help?: Yes Because of any health problems, do you need the help of another person with your personal care needs such as eating, bathing, dressing or getting around the house?: No Can you handle your own money without help?: Yes During the past 4 weeks, how would you rate your health in general?: good During the past 4 weeks how have things been going for you?: pretty well Are you having difficulties driving your car?: no Do you always fasten your seat belt when you are in a car?: yes, usually During past 4 weeks, have you been bothered by the following: never: Falling or dizzy when standing up, Sexual problems?, Trouble eating well?, Teeth or denture problems?, Problems using the telephone? and Tiredness or fatigue? Have you fallen 2 or more times in the past year?: No Are you afraid of falling?: No Are you a smoker?: no During the past 4 weeks, how many drinks of wine, beer, or other alcoholic beverages did you have?: no alcohol at all Do you exercise for about 20 minutes 3 or more times a week?: yes, most of the time Have you been given information to help with the following?: yes: Hazards in your house that might hurt you? and yes: Keeping track of your medications? How often do you have trouble taking medicines the way you have been told to take them?: I always take medicine as prescribed How confident are you that you can control & manage most of your health problems?: very confident What is your race?: White Mini Mental State Exam (MMSE) Orientation What is the (year) (season) (date) (day) (month)?: year, season, date, day and month Score Score: 5 Activity of Daily Living Bathing - sponge bath, tub bath or shower: receives no assistance (gets in/out by self, if usual bathing means Dressing - getting clothes from closets & drawers, including inner/outer garments & fasteners.: gets clothes & gets completely dressed without help Toileting - going to the 'toilet room' for urine/bowel elimination & cleaning self/arranging clothes: goes to toilet room, cleans self, arranges clothes without help Transfer: moves in & out of bed and chair without help (may use support object) Continence: controls urination/bowel movements completely by self Feeding: feeds self without help Total Score: 0 Information obtained from: patient Using telephone: independent Traveling: independent Shopping: independent Preparing meals: independent Housework: independent Taking medicine: independent Managing money: independent PHQ-9 Over the last 2 weeks, how often have you been bothered by any of the following problems? 1. Little interest or pleasure in doing things: not at all 2. Feeling down, depressed, or hopeless: not at all 3. Trouble falling or staying asleep, or sleeping too much: not at all 4. Feeling tired or having little energy: not at all 5. Poor appetite or overeating: not at all 6. Feeling bad about yourself - or that you are a failure or have let yourself or your family down: not at all 7. Trouble concentrating on things, such as reading the newspaper or watching television: not at all 8. Moving or speaking so slowly that other people could have noticed. Or the opposite - being so fidgety or restless that you have been moving around a lot more than usual: not at all 9. Thoughts that you would be better off or of hurting yourself in some way: not at all Total score: 0 Depression Screening Interpretation: Negative [id number] - PHQ-9 Billing: Yes Source: Developed by Drs. Abran Lizama, Emilee Philippe, Mansoor Rivas and colleagues, with an educational smith from [employer]. FEDERICO-7 AMB Questionnaire FEDERICO-7 Date FEDERICO - 7 assessed: 02/01/23 Feeling nervous, anxious, or on edge: 0 = Not at all Not being able to stop or control worryin = Not at all Worrying too much about different things: 0 = Not at all Trouble relaxin = Not at all Being so restless that it is hard to sit still: 0 = Not at all Becoming easily annoyed or irritable: 0 = Not at all Feeling afraid as if something awful might happen: 0 = Not at all Total FEDERICO-7 score (0-4 normal; 5-9 mild; 10-14 moderate; 15-21 severe): 0 Source: Developed by Drs. Abran Lizama, Emilee Philippe, Mansoor Rivas and colleagues, with an educational smith from [employer]. FEDERICO-7 Assessment Billing FEDERICO-7 Assessment Tool: FEDERICO-7 Assessment 04544 AUDIT C Alcohol Use Questionnaire (AUDIT-C) 1. How often do you have a drink containing alcohol?: Never 3. How often do you have six or more drinks on one occasion?: Never Total Score: 0 Score Reviewed/Action Taken: No Thrive Questionnaire Date Thrive assessed: 09/19/22 I am a: Patient What is your living situation today?: I have a steady place to live Within the past 12 months, did the food you bought not last and you didn't have the money to get more?: Never true Within the past 12 months, did you worry whether your food would run out before you got money to buy more?: Never true Do you have trouble paying for medicines?: No Do you have trouble getting transportation to medical appointments?: No Do you have trouble paying your heating and electricity bill?: No Do you have trouble taking care of your child, family member or friend?: No Do you have trouble with day-to-day activities such as bathing, preparing meals, shopping, managing finances, etc.?: No Are you currently unemployed and looking for a job?: No Are you interested in more education?: No Currently or been in a relationship where the following occur: no concerns reported Physical Exam Vital Signs: Last Vital Signs Pulse 78 02/01/23 08:34 BP 134/78 02/01/23 08:34 Pulse Ox 99 02/01/23 08:34 Oxygen Delivery Method Room Air 02/01/23 08:34 BMI result Body Mass Index 23.7 Const General: cooperative and no acute distress Orientation/consciousness: patient oriented x3 HEENT Other: Whisper test: pass Neuro Other: Balance: Normal Get up and walk: able to Romberg: negative Tandem gait: able to General: patient oriented x3 Assessment & Plan Assessment & Plan (1) GERD (gastroesophageal reflux disease): Code(s): K21.9 - Gastro-esophageal reflux disease without esophagitis Plan: Avoid GERD trigger foods Do not lay down 2-3 hours after evening meal (2) IBS (irritable bowel syndrome): Code(s): K58.9 - Irritable bowel syndrome without diarrhea Plan: Continue to follow-up with GI Dr. Jefferson (3) Hypercholesterolemia: Code(s): E78.00 - Pure hypercholesterolemia, unspecified Plan: Continue current treatment Low-cholesterol diet (4) History of left breast cancer: Code(s): Z85.3 - Personal history of malignant neoplasm of breast Plan: Continue to follow-up with Dr. Damon and Dr. Covarrubias (5) Hypothyroidism: Comment: History of Maia's Code(s): E03.9 - Hypothyroidism, unspecified Qualifiers: Hypothyroidism type: acquired Qualified Code(s): E03.9 - Hypothyroidism, unspecified Plan: Levothyroxine 75 mcg daily (6) Hypertension: Code(s): I10 - Essential (primary) hypertension Qualifiers: Hypertension type: essential hypertension Qualified Code(s): I10 - Essential (primary) hypertension Plan: Low-sodium diet Continue current treatment (7) Adult general medical exam: Code(s): Z00.00 - Encounter for general adult medical examination without abnormal findings Quality Reporting (2019) Fall Risk Screening ([facility] 139) Last assessed Fall Risk: 02/01/23 Fall risk assessment: No Falls in past year Depression/Bipolar (159/160/161/177) PHQ-9: Total score: 0 Coding Level of Care Code Medicare Subsequent (G0439) Diagnoses GERD (gastroesophageal reflux disease) K21.9 IBS (irritable bowel syndrome) K58.9 Hypercholesterolemia E78.00 History of left breast cancer Z85.3 Hypothyroidism E03.9 Hypothyroidism type: acquired Hypertension I10 Hypertension type: essential hypertension Adult general medical exam Z00.00 CPT Codes Advance Care Planning - Time spent: 1-15 minutes, not on file ([id number]) Additional Codes FEDERICO-7 Assessment Billing - FEDERICO-7 Assessment Tool: FEDERICO-7 Assessment 40848 ([id number]) Advance Care Planning Date of discussion: 02/01/23 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
== END 2023-02-01 09:21 | disposition home or self-care (01) ==
PROVIDERS: Visit Provider Nurse Practitioner Family
DX: Z00.00 Encounter for general adult medical examination without abnormal findings (principal); K21.9 Gastro-esophageal reflux disease without esophagitis; K58.9 Irritable bowel syndrome, unspecified; Z85.3 Personal history of malignant neoplasm of breast; E03.9 Hypothyroidism, unspecified; I10 Essential (primary) hypertension; E78.00 Pure hypercholesterolemia, unspecified
CPT/HCPCS: 1124F; G0439

== ENCOUNTER 2023-02-15 09:04 | Outpatient (AMB) | payer MEDICARE, SELFPAY ==
--- NOTE | 2023-02-15 09:05 | A.OFFVIS_ITS ---
Intake Vital Signs 02/15/23 09:12 Height 5 ft 3 in Weight 135 lb 8 oz BMI 24.0 BP 168/78 H Blood Pressure Location Lt brachial Position Sitting Pulse 86 Intake Visit Reasons: yearly breast examination Intake Note: Patient is seen in office for yearly breast exam. Patient c/o: denies any concerns regarding the breast Customer Complaint Clerk Required: No Accompanied by: Self / Same As Patient Allergies Tytdqvd-RWL-DnC Reductase Inhibitor [IXZQREO-JTV-DOY REDUCTASE INHIBITOR] Allergy (Mild, Verified 02/15/23 09:10) ACHY atorvastatin [From Lipitor] Allergy (Unknown, Verified 02/15/23 09:10) Muscle Pain ciprofloxacin [Cipro] Allergy (Unknown, Verified 02/15/23 09:10) Anaphylaxis metronidazole Allergy (Unknown, Verified 02/15/23 09:10) anaphylaxis rosuvastatin [From Crestor] Allergy (Unknown, Verified 02/15/23 09:10) Muscle Pain simvastatin Allergy (Unknown, Verified 02/15/23 09:10) Muscle Pain Sulfa (Sulfonamide Antibiotics) Allergy (Unknown, Verified 02/15/23 09:10) diarrhea sulfamethoxazole [From Bactrim] Allergy (Unknown, Verified 02/15/23 09:10) Unknown trimethoprim [From Bactrim] Allergy (Unknown, Verified 02/15/23 09:10) Unknown hydrochlorothiazide Adverse Reaction (Intermediate, Verified 02/15/23 09:10) myalgia lisinopril Adverse Reaction (Intermediate, Verified 02/15/23 09:10) Cough SEASONAL ALLERGIES Allergy (Intermediate, Uncoded 02/15/23 09:10) ITCHING HPI HPI Comments History of Present Illness Details 73-year-old female patient, previous patient of Dr. Yuan returning for a yearly breast examination. She feels well and denies any new breast symptoms on either side. She has a history of left breast cancer diagnosed in 02/2002. She underwent a left simple mastectomy with sentinel node biopsy. This was followed by AC chemotherapy. She was initially placed on tamoxifen but later switched to Arimidex due to vaginal bleeding 1 year later. This was later switched to letrozole and Aromasin due to intolerable joint affects. Her last mammogram of 06/13/2022 revealed no significant changes from the previous mammogram. Density score was D. No mammographic evidence of malignancy was identified (BI-RADS 1). She will be due for mammogram in in May 2023. She underwent a genetic testing which revealed no deleterious mutations and no variance of uncertain significance. She reports feeling well and denies any new or ongoing breast symptoms. [facility] Medical History (Updated 02/01/23 @ 09:25 by MICHAEL Daniel) Adult general medical exam Anxiety Breast density Chest tightness Diverticular disease Drug allergy, antibiotic Family history of malignant neoplasm of endometrium Family history of pancreatic cancer History of left breast cancer Hypercholesterolemia Hypertension Hypothyroidism Insomnia Irritable bowel syndrome Pulmonary nodule Sacroiliac joint dysfunction of left side Shortness of breath Surgical History (Updated 02/01/23 @ 09:25 by MICHAEL Daniel) History of cataract surgery History of colonoscopy History of laparoscopy History of left mastectomy History of tonsillectomy Family History Father History of cirrhosis Lung cancer Mother Pancreatic cancer CVD (cardiovascular disease) Hypertension Sister History of endometrial cancer Brother No problems noted. 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) Cognitive needs: No Hearing needs: No Vision needs: Yes Female Reproductive History Menstrual Age of Menarche: 14 Date of menopause: 06/25/02 Review of Systems Const All systems reviewed & are unremarkable except as noted in HPI and below Denies nipple discharge Skin/Breast Denies breast swelling, Denies breast skin changes, Denies breast pain, Denies breast mass and Denies nipple discharge Tyrese/Lymph Denies lymphadenopathy Physical Exam Const General: no acute distress and well developed Nutritional Appearance: well nourished Orientation/consciousness: patient oriented x3 Limitations: no limitations Chest Other: Status post left mastectomy. Incision is clean and intact without subcutaneous masses or enlarged lymph nodes. No skin ulceration or discharge. Right breast reveals no skin change, nipple discharge, palpable mass, enlarged lymph node. No evidence of recurrence disease. Resp Effort & Inspection: normal respiratory effort Skin General skin exam: no rashes or lesions noted Neuro General: patient oriented x3 Extrem General: Yes no clubbing, cyanosis or edema Assessment & Plan Assessment & Plan (1) History of left breast cancer: Code(s): Z85.3 - Personal history of malignant neoplasm of breast Plan 73-year-old female patient returning for a routine annual breast cancer follow- up after a left breast mastectomy and axillary sentinel node biopsy in 02/2002. She feels well and denies any ongoing breast symptoms. Examination today reveals no suspicious findings and a well-healed mastectomy incision on the left side. Her most recent mammogram was in 06/21/2022 revealed no significant changes from the prior mammogram (BI-RADS 1). She is due for a follow-up mammogram in May 2023 and will return in 1 year for follow-up examination. Orders: Orders MM screening mammo unilat RT 06/23/23 Z85.3 - Personal history of malignant neoplasm of breast Coding Level of Care Code Global (61982) Diagnoses History of left breast cancer Z85.3
[2023-02-15 09:12] VITALS: BP 168/78; PULSE 86; BMI 24.0
== END 2023-02-15 09:21 | disposition home or self-care (01) ==
PROVIDERS: PCP Internal Medicine; Visit Provider Surgery
DX: Z85.3 Personal history of malignant neoplasm of breast (principal); Z48.89 Encounter for other specified surgical aftercare
CPT/HCPCS: 99213

== ENCOUNTER → 2023-02-15 09:04 | Outpatient (BNVA) | payer MEDICARE, SELFPAY | PROVIDERS: PCP Internal Medicine; Visit Provider Surgery | DX: Z85.3 Personal history of malignant neoplasm of breast (principal) | CPT/HCPCS: 99212 ==

== ENCOUNTER 2023-03-06 06:03 | Outpatient (REF) | payer MEDICARE, SELFPAY ==
--- NOTE | ~2023-03-06 | FL_ITS ---
EXAMINATION: XR FLUOROSCOPY WITH IMAGES CLINICAL INFORMATION: Sacrococcygeal disorders, not elsewhere classified. COMPARISON: None available. TECHNIQUE: Fluoroscopy Supervised By: Dr. Sean Han. Fluoroscopy Time: 0.3 minutes. Cumulative Dose: 3.88 mGy. DAP: 1.05 Gycm2. Images: 1. FINDINGS: Images demonstrate needle placement and contrast injection of the left sacroiliac joint. FL/FL guidance in treatment room IMPRESSION: Fluoroscopy guidance for pain management procedure.
== END 2023-03-06 06:04 | disposition home or self-care (01) ==
LOC: CF 06:03
PROVIDERS: Visit Provider Anesthesiology
DX: M53.3 Sacrococcygeal disorders, not elsewhere classified (principal); M46.1 Sacroiliitis, not elsewhere classified
CPT/HCPCS: 27096

== ENCOUNTER 2023-03-06 09:30 | Outpatient (AMB) | payer MEDICARE, SELFPAY ==
--- NOTE | 2023-03-06 09:51 | MHC.OFFVIS ---
Intake Vital Signs 03/06/23 10:46 03/06/23 10:47 Height 5 ft 3 in 5 ft 3 in Weight 135 lb 135 lb BMI 23.9 23.9 BP 124/72 116/62 Blood Pressure Location Lt brachial Rt brachial Position Sitting Sitting Respiration 14 14 Pulse 76 75 Pulse Source Pulse Oximeter Pulse Oximeter Pulse Oximetry (%) 98 95 Oxygen Delivery Method Room Air Room Air Comment pre-op post-op Intake Visit Reasons: L DX SIJ INJ/LOCAL Allergies Qltxmyf-PFD-LxU Reductase Inhibitor [KTBNXUO-MJL-YBU REDUCTASE INHIBITOR] Allergy (Mild, Verified 03/06/23 10:48) ACHY atorvastatin [From Lipitor] Allergy (Unknown, Verified 03/06/23 10:48) Muscle Pain ciprofloxacin [Cipro] Allergy (Unknown, Verified 03/06/23 10:48) Anaphylaxis metronidazole Allergy (Unknown, Verified 03/06/23 10:48) anaphylaxis rosuvastatin [From Crestor] Allergy (Unknown, Verified 03/06/23 10:48) Muscle Pain simvastatin Allergy (Unknown, Verified 03/06/23 10:48) Muscle Pain Sulfa (Sulfonamide Antibiotics) Allergy (Unknown, Verified 03/06/23 10:48) diarrhea sulfamethoxazole [From Bactrim] Allergy (Unknown, Verified 03/06/23 10:48) Unknown trimethoprim [From Bactrim] Allergy (Unknown, Verified 03/06/23 10:48) Unknown hydrochlorothiazide Adverse Reaction (Intermediate, Verified 03/06/23 10:48) myalgia lisinopril Adverse Reaction (Intermediate, Verified 03/06/23 10:48) Cough SEASONAL ALLERGIES Allergy (Intermediate, Uncoded 02/15/23 09:10) ITCHING [facility] Medical History (Updated 03/06/23 @ 10:21 by Sean Han MD) Sacroiliac joint dysfunction of left side Breast density Adult general medical exam Chest tightness Shortness of breath Drug allergy, antibiotic Diverticular disease Irritable bowel syndrome Pulmonary nodule Insomnia Anxiety Family history of pancreatic cancer Family history of malignant neoplasm of endometrium Hypercholesterolemia History of left breast cancer Hypothyroidism Hypertension Surgical History History of cataract surgery History of colonoscopy History of laparoscopy History of left mastectomy History of tonsillectomy Family History Father History of cirrhosis Lung cancer Mother Pancreatic cancer CVD (cardiovascular disease) Hypertension Sister History of endometrial cancer Brother No problems noted. 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 There is no signs for lumbar radiculopathy. There are no other joint issues. She is unable to take oral NSAIDs. We can trial diclofenac gel which would have less systemic side effects. She may apply it is up to twice a day as needed. Prescription sent to pharmacy. Since she has already done exercises taught by PT, she defers PT referral. We also talked about trial of SI joint injection and she is eager to proceed. We will refer her to pain management for left SI joint injection under fluoroscopy. Since we are proceeding with injections, it would be prudent to get lumbar x-rays done today. I suspect x-ray will show lumbar spondylosis which will not change our current assessment and plan. (2) Sacroiliitis: Code(s): M46.1 - Sacroiliitis, not elsewhere classified Plan: Left diagnostic sacroiliac joint injection Informed consent was explained thoroughly to the patient. All questions about benefits and risks for the procedure were answered. Patient came to the operating room and was positioned prone on the operating table with the pillow under the abdomen. Time out was performed delineating name and of the patient, allergies and the nature of the procedure. The lower back and buttocks of the patient were prepped with ChloraPrep prepped and draped with sterile utility towels. C-arm was brought over the operating field and sq picture of patient's pelvis was demonstrated on the screen. For the left joint tilting C-arm contralateral to the site of the joint the most posterior portion of the joints was superimposed with anterior silhouette of the joint. Skin was injected in the projection of the joint slightly medial to the location of the joint with 25 gauge 1/2 inch needle using local lidocaine 2% .After that 22 gauge 3 and 1/2 inch needle was driven to the left joint in tunnel vision fashion. When needle entered the joint capsule injection of the contrast was performed demonstrating intra-articular and minimally periarticular spread of the contrast. After that 4 cc. of ropivacaine 0.5% was injected into the joint. Upon completion of the injections the needle was removed Sterile dressing was applied. Upon completion of the injection patient was taken outside of the operating room to the recovery room where recovered uneventfully. Plan Assessment and plan discussed with patent, and patient was agreeable. All questions were answered thoroughly. Follow-up 2-4 weeks after injection Orders: Orders FL guidance in treatment room Today M53.3 - Sacrococcygeal disorders, not elsewhere classified Coding Level of Care Code Procedure Only Diagnoses Sacroiliac joint dysfunction of left side M53.3 Sacroiliitis M46.1
[2023-03-06 10:46] VITALS: BP 124/72; PULSE 76; RESP 14; O2SAT 98; BMI 23.9
[2023-03-06 10:47] VITALS: BP 116/62; PULSE 75; RESP 14; O2SAT 95; BMI 23.9
== END 2023-03-06 10:31 | disposition home or self-care (01) ==
LOC: HO.PMCPRC 09:30
PROVIDERS: PCP Internal Medicine; Visit Provider Anesthesiology
DX: M53.3 Sacrococcygeal disorders, not elsewhere classified (principal); M46.1 Sacroiliitis, not elsewhere classified
CPT/HCPCS: 27096

== ENCOUNTER 2023-03-08 10:11 | Outpatient (AMB) | payer MEDICARE, SELFPAY ==
--- NOTE | 2023-03-08 10:13 | A.OFFVIS_ITS ---
Intake Vital Signs 03/08/23 10:16 Height 5 ft 3 in Weight 135 lb 4 oz BMI 24.0 BP 146/81 H Blood Pressure Location Lt brachial Position Sitting Pulse 78 Pulse Source Pulse Oximeter Pulse Oximetry (%) 99 Oxygen Delivery Method Room Air Intake Visit Reasons: L DX SIJ INJ 03/06/23 Intake Note: Pain today /10 since getting injection. Stereo Compiler Required: No Accompanied by: Self / Same As Patient Allergies Jkzbhub-RCW-ScQ Reductase Inhibitor [UPDZQFM-VCV-DVZ REDUCTASE INHIBITOR] Allergy (Mild, Verified 03/08/23 10:13) ACHY atorvastatin [From Lipitor] Allergy (Unknown, Verified 03/08/23 10:13) Muscle Pain ciprofloxacin [Cipro] Allergy (Unknown, Verified 03/08/23 10:13) Anaphylaxis metronidazole Allergy (Unknown, Verified 03/08/23 10:13) anaphylaxis rosuvastatin [From Crestor] Allergy (Unknown, Verified 03/08/23 10:13) Muscle Pain simvastatin Allergy (Unknown, Verified 03/08/23 10:13) Muscle Pain Sulfa (Sulfonamide Antibiotics) Allergy (Unknown, Verified 03/08/23 10:13) diarrhea sulfamethoxazole [From Bactrim] Allergy (Unknown, Verified 03/08/23 10:13) Unknown trimethoprim [From Bactrim] Allergy (Unknown, Verified 03/08/23 10:13) Unknown hydrochlorothiazide Adverse Reaction (Intermediate, Verified 03/08/23 10:13) myalgia lisinopril Adverse Reaction (Intermediate, Verified 03/08/23 10:13) Cough SEASONAL ALLERGIES Allergy (Intermediate, Uncoded 02/15/23 09:10) ITCHING HPI L DX SIJ INJ 03/06/23 HPI Details Patient is very pleasant 73 years old female with prior history of left breast cancer s/p mastectomy, osteopenia, left sacroiliac joint pain, chronic low back pain presents today for initial evaluation of left sided low back pain and left SIJ pain. She was referred to our office by Dr. Cortes stitch cleaner for left diagnostic SIJ injection which was completed by Dr. Han on 03/06/23. Patient reports she used to manage her left sided back pain 2 years and 6 months ago with PT, NSAIDs, heat and ice therapy, and activity modifications which resolved her pain previously. However, due to starting HTN medications, she was told no longer to take NSAIDs. Patient reports 80-90% pain relief for over 24 hours following the diagnostic SIJ injection 2 days ago with ongoing pain relief. Patient is interested in longer term pain relief interventional treatments to alleviate left SIJ pain. Recent lumbosacral imaging is noted for mild levoscoliosis of lower lumbar spine with degenerative disc changes and moderate left L4-L5 facet joint arthropathy. Patient denies any fever, weight loss, abdominal or groin pain, bladder or bowel dysfunction or saddle anesthesia. Location Low back pain, left side Duration Acute on chronic worsening for past 6 month Characteristics of symptom or complaint Aching, spasming, sharp, dull Aggravating or associated factors Prolonged sitting, climbing, changing positions Relieving factors Tylenol, ice and heat therapy, NSAIDs Treatment Physical therapy in 2020, diagnostic left SIJ injections 03/06/23 [facility] Medical History Sacroiliac joint dysfunction of left side Breast density Adult general medical exam Chest tightness Shortness of breath Drug allergy, antibiotic Diverticular disease Irritable bowel syndrome Pulmonary nodule Insomnia Anxiety Family history of pancreatic cancer Family history of malignant neoplasm of endometrium Hypercholesterolemia History of left breast cancer Hypothyroidism Hypertension Surgical History History of cataract surgery History of colonoscopy History of tonsillectomy History of left mastectomy History of laparoscopy Family History Father History of cirrhosis Lung cancer Mother Pancreatic cancer CVD (cardiovascular disease) Hypertension Sister History of endometrial cancer Brother No problems noted. 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 Alert and oriented. Mood and affect appropriate. Follows and participates in conversation appropriately. Respiratory effort is unlabored. No cough. Able to transition from sit to stand unassisted. Ambulates with bilaterally normal heel strike and toe off. Back/Spine/Pelvis Other: Patient is able to walk and stand on heels and tip toes with no difficulties demonstrating good motor tone. No limping. Can flex forward to 65-75 degrees and extend to 5-10 degrees before experiencing lumbar pain. Increased pain with lumbar extension. Demonstrates 5/5 strength of quadriceps bilaterally as well as flexion/dorsiflexion of bilateral feet against resistance. 2+ pedal pulses bilaterally. Straight leg rise with dorsiflexion negative bilaterally. +2 patellar and achilles reflexes bilaterally. Facet loading test positive bilaterally, left>right. Vidal sign, Berto?s, [place], Pelvic compression and Stinchfield tests are positive on the left, negative on the right. No groin pain with I/E hip rotations. Valsalva maneuver negative. Cervical Spine: cervical ROM normal, No cervical muscular tenderness and No Cervical spine tenderness Thoracic/Lumbar Spine: thoracic and lumbar spine normal to inspection, No Thoracic/lumbar spine scar(s), Lasegue's sign negative, straight leg raise negative bilaterally, pain with thoraco-lumbar ROM (mild), No thoracic spinal tenderness and lumbar spinal tenderness at L4 and at L5 Pelvis: buttock tenderness on the left and no sciatic notch tenderness Sacroiliac joints: on the right nontender and on the left tender to palpation Neuro General: Normal light touch and pain sensation and no focal motor deficits Gait exam (Neuro): Normal gait present Motor exam (neuro): 5/5 motor strength present throughout, no tremor noted and Motor abnormalities not present Sensory Exam: No Sensory deficit (Neuro) Results Reviewed Results Reviewed: XR LUMBOSACRAL SPINE 01/31/23 CLINICAL INFORMATION: Sacrococcygeal disorder. FINDINGS: There is minimal levoscoliosis along the lower lumbar spine. Loss of L4-L5 and L5-S1 disc heights is noted. There is moderate left L4-L5 facet joint arthropathy. No acute fracture, lytic or sclerotic process seen. The paravertebral soft tissues are normal. The SI joints are normal. IMPRESSION: Mild levoscoliosis of lower lumbar spine with degenerative disc changes. No visible acute fracture, dislocation or subluxation seen. Assessment & Plan Assessment & Plan (1) Sacroiliitis: Code(s): M46.1 - Sacroiliitis, not elsewhere classified (2) Sacroiliac joint dysfunction of left side: Code(s): M53.3 - Sacrococcygeal disorders, not elsewhere classified (3) Spondylosis of lumbar region without myelopathy or radiculopathy: Code(s): M47.816 - Spondylosis without myelopathy or radiculopathy, lumbar region (4) Lumbar degenerative disc disease: Code(s): M51.36 - Other intervertebral disc degeneration, lumbar region Plan Patient is status post diagnostic left SIJ injection with ongoing 80-90% pain relief since procedure 2 days ago. She was referred by our [facility] [place] Physiatry office and has upcoming follow up with them next month. We discussed interventional treatments for longer term left SIJ pain relief, including therapeutic SIJ injections, neuromodulation with Curonix PNS and sacroiliac joint RFA. Tentatively, we will plan for Left Therapeutic SIJ injection with Decadron, with local and fluoroscopy. We also discussed diagnostic left MBB for potential Sprint PNS trial for axial low back pain. Patient is aware of glucocorticoid related care home effects, including bone loss and increased risk of fracture. Expectations, risks and benefits were reviewed.All questions and concerns have been answered and patient agreed with the plan. Follow up as needed. Coding Level of Care Code New Pt Level 4 (64927) Diagnoses Sacroiliitis M46.1 Sacroiliac joint dysfunction of left side M53.3 Spondylosis of lumbar region without myelopathy or radiculopathy M47.816 Lumbar degenerative disc disease M51.36
[2023-03-08 10:16] VITALS: BP 146/81; PULSE 78; O2SAT 99; BMI 24.0
== END 2023-03-08 10:40 | disposition home or self-care (01) ==
PROVIDERS: PCP Internal Medicine; Visit Provider Nurse Practitioner Family
DX: M46.1 Sacroiliitis, not elsewhere classified (principal); M53.3 Sacrococcygeal disorders, not elsewhere classified; M47.816 Spondylosis without myelopathy or radiculopathy, lumbar region; M51.36 Other intervertebral disc degeneration, lumbar region
CPT/HCPCS: 99204

== ENCOUNTER → 2023-03-08 10:11 | Outpatient (BNVA) | payer MEDICARE, SELFPAY | PROVIDERS: PCP Internal Medicine; Visit Provider Nurse Practitioner Family ==

== ENCOUNTER 2023-03-27 06:15 | Outpatient (REF) | payer MEDICARE, SELFPAY ==
--- NOTE | ~2023-03-27 | FL_ITS ---
EXAMINATION: XR FLUOROSCOPY WITH IMAGES CLINICAL INFORMATION: Sacrococcygeal disorders, not elsewhere classified. COMPARISON: None available. TECHNIQUE: Fluoroscopy Supervised By: Dr. Sean Han. Fluoroscopy Time: 0.1 minute. Cumulative Dose: 0.898 mGy. DAP: 0.0156 Gycm2. Images: 1. FINDINGS: Image demonstrates needle placement and contrast injection over the left sacroiliac joint FL/FL guidance in treatment room IMPRESSION: Fluoroscopy guidance for pain management procedure
== END 2023-03-27 06:16 | disposition home or self-care (01) ==
LOC: CF 06:15
PROVIDERS: Visit Provider Anesthesiology
DX: M53.3 Sacrococcygeal disorders, not elsewhere classified (principal); M46.1 Sacroiliitis, not elsewhere classified; M47.816 Spondylosis without myelopathy or radiculopathy, lumbar region; M51.36 Other intervertebral disc degeneration, lumbar region
CPT/HCPCS: 27096; J1100

== ENCOUNTER 2023-03-27 12:48 | Outpatient (AMB) | payer MEDICARE, SELFPAY ==
[2023-03-27 13:15] VITALS: BP 124/68; PULSE 81; RESP 16; O2SAT 98; BMI 23.9
--- NOTE | 2023-03-27 13:15 | MHC.OFFVIS ---
Intake Vital Signs 03/27/23 13:15 03/27/23 13:16 Height 5 ft 3 in 5 ft 3 in Weight 135 lb 135 lb BMI 23.9 23.9 BP 124/68 130/72 Blood Pressure Location Rt brachial Lt brachial Position Sitting Sitting Respiration 16 16 Pulse 81 70 Pulse Source Pulse Oximeter Pulse Oximeter Pulse Oximetry (%) 98 95 Oxygen Delivery Method Room Air Room Air Comment pre-op post-op Intake Visit Reasons: L SIJ STEROID INJ W/DECADRON/LOCAL Allergies Paumnne-FSC-CpX Reductase Inhibitor [IKYMCSF-HBF-SFN REDUCTASE INHIBITOR] Allergy (Mild, Verified 03/27/23 13:15) ACHY atorvastatin [From Lipitor] Allergy (Unknown, Verified 03/27/23 13:15) Muscle Pain ciprofloxacin [Cipro] Allergy (Unknown, Verified 03/27/23 13:15) Anaphylaxis metronidazole Allergy (Unknown, Verified 03/27/23 13:15) anaphylaxis rosuvastatin [From Crestor] Allergy (Unknown, Verified 03/27/23 13:15) Muscle Pain simvastatin Allergy (Unknown, Verified 03/27/23 13:15) Muscle Pain Sulfa (Sulfonamide Antibiotics) Allergy (Unknown, Verified 03/27/23 13:15) diarrhea sulfamethoxazole [From Bactrim] Allergy (Unknown, Verified 03/27/23 13:15) Unknown trimethoprim [From Bactrim] Allergy (Unknown, Verified 03/27/23 13:15) Unknown hydrochlorothiazide Adverse Reaction (Intermediate, Verified 03/27/23 13:15) myalgia lisinopril Adverse Reaction (Intermediate, Verified 03/27/23 13:15) Cough SEASONAL ALLERGIES Allergy (Intermediate, Uncoded 02/15/23 09:10) ITCHING PFSH Medical History Sacroiliac joint dysfunction of left side Breast density Adult general medical exam Chest tightness Shortness of breath Drug allergy, antibiotic Diverticular disease Irritable bowel syndrome Pulmonary nodule Insomnia Anxiety Family history of pancreatic cancer Family history of malignant neoplasm of endometrium Hypercholesterolemia History of left breast cancer Hypothyroidism Hypertension Surgical History History of cataract surgery History of colonoscopy History of tonsillectomy History of left mastectomy History of laparoscopy Family History Father History of cirrhosis Lung cancer Mother Pancreatic cancer CVD (cardiovascular disease) Hypertension Sister History of endometrial cancer Brother No problems noted. 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) Cognitive needs: No Hearing needs: No Vision needs: Yes Female Reproductive History Menstrual Age of Menarche: 14 Date of menopause: 06/25/02 Physical Exam Vital Signs: Last Vital Signs Pulse 70 03/27/23 13:16 Resp 16 03/27/23 13:16 BP 130/72 03/27/23 13:16 Pulse Ox 95 03/27/23 13:16 Oxygen Delivery Method Room Air 03/27/23 13:16 BMI result Body Mass Index 23.9 Results Reviewed Results Reviewed: 03/27/23 13:39 Lidocaine HCl 2 % MPF [Xylocaine 2 % MPF] 5 ml .ROUTE .STK-MED ONE dexAMETHasone sod phosphate/PF [Decadron] 10 mg .ROUTE .STK-MED ONE Assessment & Plan Assessment & Plan (1) Sacroiliitis: Code(s): M46.1 - Sacroiliitis, not elsewhere classified (2) Sacroiliac joint dysfunction of left side: Code(s): M53.3 - Sacrococcygeal disorders, not elsewhere classified Plan: ?Left therapeutic sacroiliac joint injection Informed consent was explained thoroughly to the patient.? All questions about benefits and risks for the procedure were answered. Patient came to the operating room and was positioned prone on the operating table with the pillow under her pelvis. ?[place] monitors were applied and patient was sedated. ? Time out was performed delineating name and of the patient, site and side of the procedure, nature of the procedure and potential patient?s risks. The lower back of the patient and upper buttocks was prepped with ChloraPrep prepped and draped with sterile utility drapes.? C-arm was brought over the operating field and square picture of patient's pelvis was demonstrated on the screen.? For the left joint tilting C-arm contralateral to the site of the joint the posterior joint silhouette was delineated on the screen. Skin projection of the joint was chosen as a target of the injection and it was injected ?slightly medial to the location of the joint with 25 gauge needle using local lidocaine 2% without epinephrine. After that 22 gauge 3 and 1/2 inch needle was driven to the joint silhouette in tunnel vision fashion.? When needle entered the joint capsule injection of the contrast was performed demonstrating intra-articular spread of the contrast.? After that 4 cc. of ropivacaine 0.5% mixed with Decadron 10 mg was injected into the joint. Upon completion of the injections the needle was removed and sterile dressing was applied.? Upon completion of the injection patient was awaken taken outside of the operating room to the recovery room where recovered uneventfully.? 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 She was referred by our [facility] office and has upcoming follow up with them next month. We discussed interventional treatments for longer term left SIJ pain relief, including therapeutic SIJ injections, neuromodulation with Curonix PNS and sacroiliac joint RFA. Tentatively, we will plan for Left Therapeutic SIJ injection with Decadron, with local and fluoroscopy. We also discussed diagnostic left MBB for potential Sprint PNS trial for axial low back pain. Patient is aware of glucocorticoid related boxing and pressing supervisor effects, including bone loss and increased risk of fracture. Expectations, risks and benefits were reviewed.All questions and concerns have been answered and patient agreed with the plan. Follow up as needed. Orders: Orders FL guidance in treatment room 03/27/23 M53.3 - Sacrococcygeal disorders, not elsewhere classified Coding Level of Care Code Procedure Only Diagnoses Sacroiliitis M46.1 Sacroiliac joint dysfunction of left side M53.3 Spondylosis of lumbar region without myelopathy or radiculopathy M47.816 Lumbar degenerative disc disease M51.36
[2023-03-27 13:16] VITALS: BP 130/72; PULSE 70; RESP 16; O2SAT 95; BMI 23.9
== END 2023-03-27 13:57 | disposition home or self-care (01) ==
LOC: HO.PMCPRC 12:48
PROVIDERS: PCP Internal Medicine; Visit Provider Anesthesiology
DX: M46.1 Sacroiliitis, not elsewhere classified (principal); M53.3 Sacrococcygeal disorders, not elsewhere classified
CPT/HCPCS: 27096

== ENCOUNTER 2023-04-05 08:51 | Outpatient (AMB) | payer MEDICARE, SELFPAY ==
--- NOTE | 2023-04-05 09:03 | A.OFFVIS_ITS ---
Intake Intake Visit Reasons: OV- F/U L DX SIJ INJ 03/06/23 Intake Note: This is a 73 year old female who presents for a follow up for Sacroiliac joint dysfunction of the left side. She reports tightness but denies pain. She continues her exercises. Allergies Igjntpe-BOT-FjF Reductase Inhibitor [NQPWJPZ-RBA-UOT REDUCTASE INHIBITOR] Allergy (Mild, Verified 04/05/23 09:15) ACHY atorvastatin [From Lipitor] Allergy (Unknown, Verified 04/05/23 09:15) Muscle Pain ciprofloxacin [Cipro] Allergy (Unknown, Verified 04/05/23 09:15) Anaphylaxis metronidazole Allergy (Unknown, Verified 04/05/23 09:15) anaphylaxis rosuvastatin [From Crestor] Allergy (Unknown, Verified 04/05/23 09:15) Muscle Pain simvastatin Allergy (Unknown, Verified 04/05/23 09:15) Muscle Pain Sulfa (Sulfonamide Antibiotics) Allergy (Unknown, Verified 04/05/23 09:15) diarrhea sulfamethoxazole [From Bactrim] Allergy (Unknown, Verified 04/05/23 09:15) Unknown trimethoprim [From Bactrim] Allergy (Unknown, Verified 04/05/23 09:15) Unknown hydrochlorothiazide Adverse Reaction (Intermediate, Verified 04/05/23 09:15) myalgia lisinopril Adverse Reaction (Intermediate, Verified 04/05/23 09:15) Cough SEASONAL ALLERGIES Allergy (Intermediate, Uncoded 04/05/23 09:15) ITCHING Medication List - Last Reconciled 04/05/23 by Miriam Stafford, RN amlodipine 5 mg PO DAILY azelaic acid 15% 1 appl topical BID calcium carbonate-vitamin D3 600 mg-5 mcg (200 unit) (Calcium 600 + D(3)) 1 cap PO DAILY diclofenac sodium 1% 2 grams topical QID diphenoxylate-atropine 2.5-0.025 mg (Lomotil) 1 tab PO BID PRN erythromycin 1 appl ophthalmic (eye) DAILY ezetimibe (Zetia) 10 mg PO DAILY fluticasone propionate 50 mcg/actuation 2 sprays intranasal DAILY ketoconazole 2% 1 appl topical 2XW levothyroxine 75 mcg PO QAM 90 days [mastectomy bra (left) As directed] multivitamin 1 tab PO DAILY prosthetics As directed raloxifene 60 mg orally Saccharomyces boulardii (Daily Probiotic (S. boulardii)) 250 mg PO DAILY HPI HPI Comments History of Present Illness Details Since the last time I saw her, she had a diagnostic left SI joint injection under pain management which provided very good relief for 24 hours at least. Done 03/06/2023. Then underwent therapeutic injection of left SI joint injection 03/27/2023. Reporting 98% relief of pain. Occasional tightness. No numbness in the foot. She is happy with her improvement. [facility] Medical History Sacroiliac joint dysfunction of left side Breast density Adult general medical exam Chest tightness Shortness of breath Drug allergy, antibiotic Diverticular disease Irritable bowel syndrome Pulmonary nodule Insomnia Anxiety Family history of pancreatic cancer Family history of malignant neoplasm of endometrium Hypercholesterolemia History of left breast cancer Hypothyroidism Hypertension Surgical History History of cataract surgery History of colonoscopy History of tonsillectomy History of left mastectomy History of laparoscopy Family History Father History of cirrhosis Lung cancer Mother Pancreatic cancer CVD (cardiovascular disease) Hypertension Sister History of endometrial cancer Brother No problems noted. 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 Patient was appropriately conversant and oriented. Good historian. MSK: No specific abnormalities found on inspection of the spine and all extremities. No pain with palpation over the lumbar area. Did not push on SI joints today as to not exacerbate Lumbar ROM was full. Bilateral hip, knee and ankle ROM WNL. No ligamentous laxity or crepitance. No increased effusion. Strength is 5/5 in all muscle groups tested. No increased tone noted. Neurological: Neurologic examination of the upper and lower extremities was nonfocal with intact sensation, muscle stretch reflexes and without focal motor deficits . Salmon?s negative bilaterally. Gait is non-antalgic without loss of balance. No footdrop Neuro Sensory Exam: No Sensory deficit (Neuro) Assessment & Plan Assessment & Plan (1) Sacroiliac joint dysfunction of left side: Code(s): M53.3 - Sacrococcygeal disorders, not elsewhere classified Plan Doing much better after left SI joint therapeutic injection. Last time this happened, she had relief for at least 2 years. We are hoping she will have relief for that long again. If pain recurs, she will monitor her posture/positions and do home exercises. If it lasts longer than a week, then she can call our office again. Assessment and plan discussed with patient, and patient was agreeable. All questions were answered thoroughly. Martine Cortes MD, LO Board Certified, [place] Board of Physical Medicine and Rehabilitation (ABPMR) Board Certified, [place] Board of Electrodiagnostic Medicine (ABEM) Coding Level of Care Code Est Pt Level 3 (99121) Diagnoses Sacroiliac joint dysfunction of left side M53.3
== END 2023-04-05 09:48 | disposition home or self-care (01) ==
PROVIDERS: PCP Internal Medicine; Visit Provider Physical Medicine & Rehabilitation
DX: M53.3 Sacrococcygeal disorders, not elsewhere classified (principal)
CPT/HCPCS: 99213

== ENCOUNTER → 2023-04-05 08:51 | Outpatient (BNVA) | payer MEDICARE, SELFPAY | PROVIDERS: PCP Internal Medicine; Visit Provider Physical Medicine & Rehabilitation | DX: M53.3 Sacrococcygeal disorders, not elsewhere classified (principal) | CPT/HCPCS: 99212; J1100 ==

== ENCOUNTER 2023-04-06 06:59 | Outpatient (REF) | payer MEDICARE, SELFPAY ==
[2023-04-06 11:54] LABS: MANUAL DIFF FLAG NO
[2023-04-06 12:05] LABS: Basophils Absolute Auto 0.1 X10*3/uL (0.0-0.2); Eosinophils Absolute Auto 0.3 X10*3/uL (0.0-0.4); Eosinophils Percent Auto 3.6 % (0-4); Hemoglobin 14.8 g/dl (12.0-16.0); Imm Gran Abs Auto 0.03 X10*3/uL (0.00-0.03); Imm Gran Pct Auto 0.4 % (0.0-0.4); Lymphocytes Absolute Auto 3.1 X10*3/uL (1.2-4.9); Mean Corpuscular HGB Conc 32.2 g/dl (31.0-35.0); Mean Corpuscular Hemoglobin 29.5 pg (27.0-33.0); Mean Corpuscular Volume 91.8 fL (80.0-98.0); Mean Platelet Volume 9.8 fL (9.4-12.3); Neutrophils Absolute Auto 3.6 x10*3/uL (2.0-8.3); Platelet Count 347 X10*3/uL (160-400); Red Blood Count 5.01 X10*6/uL (4.20-5.50); Red Cell Distribution Width 13.1 % (11.0-16.0)
[2023-04-06 13:04] LABS: Alanine Aminotransferase 37 U/L (0-31); Albumin Level 4.3 g/dL (3.5-5.0); Alkaline Phosphatase 59 U/L (39-117); Anion Gap 16 (12-20); Aspartate Amino Transferase 33 U/L (5-31); Bilirubin Total 0.5 mg/dL (0.0-1.0); Blood Urea Nitrogen 18 mg/dL (9-16); Calcium 9.9 mg/dL (8.4-10.2); Carbon Dioxide 23 mmol/L (22-29); Chloride 105 mmol/L (96-108); Cholesterol 257 mg/dL (<200); Estimated Glomerular Filt Rate > 60; Glucose Random 87 mg/dL (60-115); HDL Cholesterol 75 mg/dL (>40); LDL Cholesterol Calculated 144 mg/dL (<100); Potassium 3.9 mmol/L (3.3-5.1); Sodium 140 mmol/L (135-145); Total Protein 7.2 g/dL (6.5-8.0); Triglycerides 190 mg/dL (<150)
[2023-04-06 13:05] LABS: Free T4 (Free Thyroxine) 1.05 ng/dL (0.71-1.85); Thyroid Stimulating Hormone 1.79 uIU/mL (0.32-4.0); Vitamin D 25-OH Total 98.2 ng/mL (>30)
[2023-04-06 13:20] LABS: Folate 16.5 ng/mL (> or = 4.0); Vitamin B12 761 pg/mL (200-900)
== END 2023-04-06 07:00 | disposition home or self-care (01) ==
LOC: HO.HMGCLDS 06:59
PROVIDERS: PCP Internal Medicine; Visit Provider Internal Medicine
DX: E03.9 Hypothyroidism, unspecified (principal); E78.00 Pure hypercholesterolemia, unspecified; M85.80 Other specified disorders of bone density and structure, unspecified site
CPT/HCPCS: 36415; 80053; 80061; 82306; 82607; 82746; 84439; 84443; 85025

== ENCOUNTER 2023-04-13 15:13 | Outpatient (AMB) | payer MEDICARE, SELFPAY ==
[2023-04-13 15:33] VITALS: BP 142/86; PULSE 80; O2SAT 95; BMI 24.0
--- NOTE | 2023-04-13 15:33 | MHC.PC.OV ---
Vital Signs 04/13/23 15:33 Height 5 ft 3 in Weight 135 lb 8 oz BMI 24.0 BP 142/86 H Blood Pressure Location Lt brachial Position Sitting Pulse 80 Pulse Source Pulse Oximeter Pulse Oximetry (%) 95 Oxygen Delivery Method Room Air Intake Visit Reasons: HTN, Cholesterol m L sacroiliac pain Clinical Psychologist Licensed Required: No Accompanied by: Self / Same As Patient Allergies Jxtydxb-RUP-JgB Reductase Inhibitor [HPDEPUH-EFE-NCC REDUCTASE INHIBITOR] Allergy (Mild, Verified 04/13/23 15:41) ACHY atorvastatin [From Lipitor] Allergy (Unknown, Verified 04/13/23 15:41) Muscle Pain ciprofloxacin [Cipro] Allergy (Unknown, Verified 04/13/23 15:41) Anaphylaxis metronidazole Allergy (Unknown, Verified 04/13/23 15:41) anaphylaxis rosuvastatin [From Crestor] Allergy (Unknown, Verified 04/13/23 15:41) Muscle Pain simvastatin Allergy (Unknown, Verified 04/13/23 15:41) Muscle Pain Sulfa (Sulfonamide Antibiotics) Allergy (Unknown, Verified 04/13/23 15:41) diarrhea sulfamethoxazole [From Bactrim] Allergy (Unknown, Verified 04/13/23 15:41) Unknown trimethoprim [From Bactrim] Allergy (Unknown, Verified 04/13/23 15:41) Unknown hydrochlorothiazide Adverse Reaction (Intermediate, Verified 04/13/23 15:41) myalgia lisinopril Adverse Reaction (Intermediate, Verified 04/13/23 15:41) Cough SEASONAL ALLERGIES Allergy (Intermediate, Uncoded 04/13/23 15:41) ITCHING Medication List - Last Reconciled 04/13/23 by Laurence Gurrola MD amlodipine 5 mg PO DAILY azelaic acid 15% 1 appl topical BID calcium carbonate-vitamin D3 600 mg-5 mcg (200 unit) (Calcium 600 + D(3)) 1 cap PO DAILY diclofenac sodium 1% 2 grams topical QID diphenoxylate-atropine 2.5-0.025 mg (Lomotil) 1 tab PO BID PRN erythromycin 1 appl ophthalmic (eye) DAILY ezetimibe (Zetia) 10 mg PO DAILY fluticasone propionate 50 mcg/actuation 2 sprays intranasal DAILY ketoconazole 2% 1 appl topical 2XW levothyroxine 75 mcg PO QAM 90 days [mastectomy bra (left) As directed] multivitamin 1 tab PO DAILY prosthetics As directed raloxifene 60 mg orally Saccharomyces boulardii (Daily Probiotic (S. boulardii)) 250 mg PO DAILY Tobacco use date assessed: 09/19/22 Fall risk assessment: No Falls in past year Last assessed Fall Risk: 04/13/23 Dental Screening Dental Screen Date: 04/13/23 Did you have a dental visit in the last 12 months?: Yes Did you have a dental problem in the last 6 months where you did not have access to dental care?: No Was dental information given to patient?: Patient has dentist HPI HTN, Cholesterol m L sacroiliac pain HPI Details 73-year-old female with GERD irritable bowel syndrome hypercholesterolemia history of breast cancer hypothyroidism hypertension and chronic left sacroiliac pain last seen in January patient is here for follow-up. Bone density is up-to-date colonoscopy is up-to-date. Review of the notes had orthopedic follow-up had a left diagnostic SI joint injection under pain management with good relief February 2023 and then had the therapeutic injection 03/27/2023 BP at home is good. [facility] Medical History Sacroiliac joint dysfunction of left side Breast density Adult general medical exam Chest tightness Shortness of breath Drug allergy, antibiotic Diverticular disease Irritable bowel syndrome Pulmonary nodule Insomnia Anxiety Family history of pancreatic cancer Family history of malignant neoplasm of endometrium Hypercholesterolemia History of left breast cancer Hypothyroidism Hypertension Surgical History History of cataract surgery History of colonoscopy History of tonsillectomy History of left mastectomy History of laparoscopy Family History Father History of cirrhosis Lung cancer Mother Pancreatic cancer CVD (cardiovascular disease) Hypertension Sister History of endometrial cancer Brother No problems noted. 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 Abran Lizama, Emilee Philippe, Mansoor Rivas and colleagues, with an educational smith from [employer]. Physical exam (Primary Care) Vital Signs: Last Vital Signs Pulse 80 04/13/23 15:33 BP 142/86 H 04/13/23 15:33 Pulse Ox 95 04/13/23 15:33 Oxygen Delivery Method Room Air 04/13/23 15:33 BMI result Body Mass Index 24.0 Tobacco/Smoking Status: Tobacco use Status Tobacco use date assessed 09/19/22 04/13/23 15:35 Patient Tobacco Use Status Never used Tobacco 04/13/23 15:35 e-Cigarette/Vaping Use Never Used 04/13/23 15:35 Thrive Assessment: Date of Thrive Assessment Date Thrive assessed 09/19/22 04/13/23 15:35 Const General: alert; No acute distress Eyes Conjunctivae: conjunctivae normal Resp Auscultation: clear to auscultation bilaterally Cardio Rate: regular rate Rhythm: regular rhythm GI Inspection: Yes normal to inspection Extrem General: Yes normal to inspection and No edema Office Procedures Flu Questionnaire Does the patient have a severe egg allergy?: No Does the patient have severe life threatening allergies?: No Does the patient have a fever or illness today?: No Has the patient ever had Guillain-[place] Syndrome?: No Has the patient ever had any past reaction to a flu shot?: No Immunizations flu vacc [id number] 6mos up(PF) 60 mcg(15 mcgx4)/0.5 mL IM syringe Performing Provider: Laurence Gurrola MD [place] [place] [facility] [place] [facility] Administered by: ROSY Khalil on 04/13/23 15:52 Dose Route Admin Location Dispensed Lot Number Expiration Date NDC Chyron Operator 0.5 mL IM Right Deltoid 0.5 mL [id number] 12/23/23 41021-006-11 [employer] VIS Given Date VIS Provided VIS Publication Date 04/13/23 Single Vaccine 21 Eligibility Eligibility Date Funding Source Not [facility] Eligible 04/13/23 Private Assessment and Plan Assessment & Plan (1) Spondylosis of lumbar region without myelopathy or radiculopathy: Code(s): M47.816 - Spondylosis without myelopathy or radiculopathy, lumbar region Plan: Patient has been under the pain management and had injections. (2) Hypertension: Code(s): I10 - Essential (primary) hypertension Qualifiers: Hypertension type: essential hypertension Qualified Code(s): I10 - Essential (primary) hypertension Plan: Continue with blood pressure medication. Decrease salt intake and exercise on amlodipine 5 mg once a day (3) Hypothyroidism: Comment: History of Maia's Code(s): E03.9 - Hypothyroidism, unspecified Qualifiers: Hypothyroidism type: acquired Qualified Code(s): E03.9 - Hypothyroidism, unspecified Plan: Continue with thyroid medication (4) History of left breast cancer: Code(s): Z85.3 - Personal history of malignant neoplasm of breast Plan: Patient up-to-date with mammogram and follows up with the surgeon (5) Hypercholesterolemia: Code(s): E78.00 - Pure hypercholesterolemia, unspecified Plan: Avoid fried foods, chicken skin, eggs, butter margarine, pastries and meat. Be it pork or beef they have a lot of cholesterol LDL goal of less than 130 and triglyceride of less than 150 (6) GERD (gastroesophageal reflux disease): Code(s): K21.9 - Gastro-esophageal reflux disease without esophagitis Plan: Avoid the foods that causes that usually spicy foods, tomato products, juices, coffee, soda and foods that your sensitive to. After eating do not lie down, allow 3-4 hours before in lie down. And keep the head of bed above 30 degrees to avoid the acid from going up. Orders: Orders Influenza [id number] Immunization Today Z23 - Encounter for immunization Coding Level of Care Code Est Pt Level 4 (46319) Diagnoses Spondylosis of lumbar region without myelopathy or radiculopathy M47.816 Essential hypertension I10 Hypertension type: essential hypertension Acquired hypothyroidism E03.9 Hypothyroidism type: acquired History of left breast cancer Z85.3 Hypercholesterolemia E78.00 GERD (gastroesophageal reflux disease) K21.9
== END 2023-04-13 16:38 | disposition home or self-care (01) ==
PROVIDERS: PCP Internal Medicine; Visit Provider Internal Medicine
DX: M47.816 Spondylosis without myelopathy or radiculopathy, lumbar region (principal); I10 Essential (primary) hypertension; E03.9 Hypothyroidism, unspecified; Z85.3 Personal history of malignant neoplasm of breast; E78.00 Pure hypercholesterolemia, unspecified; K21.9 Gastro-esophageal reflux disease without esophagitis; Z23 Encounter for immunization
CPT/HCPCS: 90471; 90686; 99214

== ENCOUNTER 2023-05-01 09:59 | Outpatient (AMB) | payer MEDICARE, SELFPAY ==
--- NOTE | 2023-05-01 10:01 | MHC.OFFVIS ---
Intake Vital Signs 05/01/23 10:05 Height 5 ft 3 in Weight 137 lb BMI 24.3 BP 146/70 H Blood Pressure Location Lt brachial Position Sitting Pulse 84 Pulse Source Pulse Oximeter Pulse Oximetry (%) 99 Oxygen Delivery Method Room Air Intake Visit Reasons: L SIJ STEROID INJ W/DECADRON 03/27/23 Intake Note: Pain today 07/04 Flight Communications Specialist Required: No Accompanied by: Self / Same As Patient Allergies Yukmpnk-AUW-QuM Reductase Inhibitor [COQZUFB-ZKE-RPI REDUCTASE INHIBITOR] Allergy (Mild, Verified 05/01/23 10:05) ACHY atorvastatin [From Lipitor] Allergy (Unknown, Verified 05/01/23 10:05) Muscle Pain ciprofloxacin [Cipro] Allergy (Unknown, Verified 05/01/23 10:05) Anaphylaxis metronidazole Allergy (Unknown, Verified 05/01/23 10:05) anaphylaxis rosuvastatin [From Crestor] Allergy (Unknown, Verified 05/01/23 10:05) Muscle Pain simvastatin Allergy (Unknown, Verified 05/01/23 10:05) Muscle Pain Sulfa (Sulfonamide Antibiotics) Allergy (Unknown, Verified 05/01/23 10:05) diarrhea sulfamethoxazole [From Bactrim] Allergy (Unknown, Verified 05/01/23 10:05) Unknown trimethoprim [From Bactrim] Allergy (Unknown, Verified 05/01/23 10:05) Unknown hydrochlorothiazide Adverse Reaction (Intermediate, Verified 05/01/23 10:05) myalgia lisinopril Adverse Reaction (Intermediate, Verified 05/01/23 10:05) Cough SEASONAL ALLERGIES Allergy (Intermediate, Uncoded 04/13/23 15:41) ITCHING HPI HPI Comments History of Present Illness Details Patient presents today for follow up to assess response to Left Therapeutic SIJ injection on 03/27/[address] Han. Patient reports ongoing 90% pain relief since procedure with improved functioning, mobility, ADLs and sleep. She is very content with pain improvement. Patient reports occasional left lateral buttock and lateral hip tightness during golfing which is relieved by home exercise program of gentle streching, Tylenol and heat therapy. Past Procedures: 03/27/23: Left Therapeutic SIJ injection with Decadron 10mg- 90% ongoing pain relief 03/06/23: Left Diagnostic SIJ injection- 80-90% pain relief for over 24 hours PRIOR: Patient is very pleasant 73 years old female with prior history of left breast cancer s/p mastectomy, osteopenia, left sacroiliac joint pain, chronic low back pain presents today for initial evaluation of left sided low back pain and left SIJ pain. She was referred to our office by Dr. Cortes screen making supervisor for left diagnostic SIJ injection which was completed by Dr. Han on 03/06/23. Patient reports she used to manage her left sided back pain 2 years and 6 months ago with PT, NSAIDs, heat and ice therapy, and activity modifications which resolved her pain previously. However, due to starting HTN medications, she was told no longer to take NSAIDs. Patient reports 80-90% pain relief for over 24 hours following the diagnostic SIJ injection 2 days ago with ongoing pain relief. Patient is interested in longer term pain relief interventional treatments to alleviate left SIJ pain. Recent lumbosacral imaging is noted for mild levoscoliosis of lower lumbar spine with degenerative disc changes and moderate left L4-L5 facet joint arthropathy. Patient denies any fever, weight loss, abdominal or groin pain, bladder or bowel dysfunction or saddle anesthesia. Location Low back pain, left side Duration Acute on chronic worsening for past 6 month Characteristics of symptom or complaint Aching, spasming, sharp, dull Aggravating or associated factors Prolonged sitting, climbing, changing positions Relieving factors Tylenol, ice and heat therapy, NSAIDs Treatment Physical therapy in 2020, diagnostic left SIJ injections 03/06/23 [facility] Medical History Sacroiliac joint dysfunction of left side Breast density Adult general medical exam Chest tightness Shortness of breath Drug allergy, antibiotic Diverticular disease Irritable bowel syndrome Pulmonary nodule Insomnia Anxiety Family history of pancreatic cancer Family history of malignant neoplasm of endometrium Hypercholesterolemia History of left breast cancer Hypothyroidism Hypertension Surgical History History of cataract surgery History of colonoscopy History of tonsillectomy History of left mastectomy History of laparoscopy Family History Father History of cirrhosis Lung cancer Mother Pancreatic cancer CVD (cardiovascular disease) Hypertension Sister History of endometrial cancer Brother No problems noted. 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 Alert and oriented. Mood and affect appropriate. Follows and participates in conversation appropriately. Respiratory effort is unlabored. No cough. Able to transition from sit to stand unassisted. Ambulates with bilaterally normal heel strike and toe off. Back/Spine/Pelvis Cervical Spine: cervical ROM normal and No Cervical spine tenderness Thoracic/Lumbar Spine: thoraco-lumbar ROM normal, No thoracic spinal tenderness and No lumbar spinal tenderness Pelvis: buttock tenderness on the left Sacroiliac joints: on the right nontender and on the left (Berto's test reproduces mild stretching sensation in left lateral hip) tender to palpation Results Reviewed Results Reviewed: XR LUMBOSACRAL SPINE 01/31/23 CLINICAL INFORMATION: Sacrococcygeal disorder. FINDINGS: There is minimal levoscoliosis along the lower lumbar spine. Loss of L4-L5 and L5-S1 disc heights is noted. There is moderate left L4-L5 facet joint arthropathy. No acute fracture, lytic or sclerotic process seen. The paravertebral soft tissues are normal. The SI joints are normal. IMPRESSION: Mild levoscoliosis of lower lumbar spine with degenerative disc changes. No visible acute fracture, dislocation or subluxation seen. Assessment & Plan Assessment & Plan (1) Sacroiliac joint dysfunction of left side: Code(s): M53.3 - Sacrococcygeal disorders, not elsewhere classified (2) Sacroiliitis: Code(s): M46.1 - Sacroiliitis, not elsewhere classified (3) Spondylosis of lumbar region without myelopathy or radiculopathy: Code(s): M47.816 - Spondylosis without myelopathy or radiculopathy, lumbar region Plan Patient status post left SI joint therapeutic injection on 03/27/23 with ongoing 90% pain relief, improved functioning, mobility, and sleep. Patient previously reported left therapeutic SIJ injection provided her pain relief close to 2 years. She will monitor for her pain and notify us when pain returns to baseline. Encouraged to continue HEP, good posture, adequate daily hydration and stay physically active as tolerated. All questions and concerns have been answered and patient agreed with the plan. Follow up as needed. Coding Level of Care Code Est Pt Level 3 (48610) Diagnoses Sacroiliac joint dysfunction of left side M53.3 Sacroiliitis M46.1 Spondylosis of lumbar region without myelopathy or radiculopathy M47.816
[2023-05-01 10:05] VITALS: BP 146/70; PULSE 84; O2SAT 99; BMI 24.3
== END 2023-05-01 10:09 | disposition home or self-care (01) ==
PROVIDERS: PCP Internal Medicine; Visit Provider Nurse Practitioner Family
DX: M53.3 Sacrococcygeal disorders, not elsewhere classified (principal); M46.1 Sacroiliitis, not elsewhere classified; M47.816 Spondylosis without myelopathy or radiculopathy, lumbar region
CPT/HCPCS: 99213

== ENCOUNTER → 2023-05-01 09:59 | Outpatient (BNVA) | payer MEDICARE, SELFPAY | PROVIDERS: PCP Internal Medicine; Visit Provider Nurse Practitioner Family | DX: M53.3 Sacrococcygeal disorders, not elsewhere classified (principal); M46.1 Sacroiliitis, not elsewhere classified; M47.816 Spondylosis without myelopathy or radiculopathy, lumbar region | CPT/HCPCS: 99212 ==

== ENCOUNTER 2023-06-27 09:01 | Outpatient (REF) | payer MEDICARE, SELFPAY ==
--- NOTE | ~2023-06-27 | MM_ITS ---
EXAMINATION: MM SCREENING DIGITAL BREAST TOMOSYNTHESIS, RIGHT BREAST CLINICAL INFORMATION: Screening. Asymptomatic. The patient is status post left mastectomy. COMPARISON: Mammography: This study is compared with prior exams dating back to TECHNIQUE: Digital breast tomosynthesis is performed in both the craniocaudal and mediolateral oblique views along with computer-aided detection (CAD). Synthesized 2D images are generated from the tomosynthesis. FINDINGS: The breasts are heterogeneously dense, which may obscure small masses (ACR BI-RADS breast composition Category c). There are no significant masses, abnormal calcifications, or other abnormalities. MM/MM tomosynthesis screening RT IMPRESSION: No mammographic evidence of malignancy. ASSESSMENT: BI-RADS BI-RADS 1 - Negative RECOMMENDATION: Routine annual mammography screening. 1 year F/U This examination should not preclude the clinical evaluation of a suspicious palpable abnormality. This patient's information was entered into a reminder system with a target due date for their next mammogram.
== END 2023-06-27 09:02 | disposition home or self-care (01) ==
LOC: HO.MAMMO 09:01
PROVIDERS: PCP Internal Medicine; Visit Provider Surgery
DX: Z12.31 Encounter for screening mammogram for malignant neoplasm of breast (principal)
CPT/HCPCS: 77063; 77067

== ENCOUNTER → 2023-06-27 09:15 | Outpatient (BNV) | payer MEDICARE, SELFPAY | PROVIDERS: PCP Internal Medicine; Visit Provider Radiology Diagnostic Radiology | DX: Z12.31 Encounter for screening mammogram for malignant neoplasm of breast (principal) | CPT/HCPCS: 77063; 77067 ==

== ENCOUNTER 2023-07-09 11:03 | Outpatient (REF) | payer MEDICARE, SELFPAY ==
[2023-07-09 13:49] LABS: Appearance Urine Clear; Color Urine Yellow; Glucose Urine UA Negative (Negative); Leukocyte Esterase Urine Negative (Negative); Nitrite Urine Negative (Negative); PH 5.5 (5.0-9.0); Specific Gravity - Urine <= 1.005 (1.005-1.025); Urine Blood Negative (Negative); Urine Ketones Negative (Negative); Urine Protein Negative (Neg-Trace)
== END 2023-07-09 11:04 | disposition home or self-care (01) ==
LOC: HO.HMGCLDS 11:03
PROVIDERS: PCP Internal Medicine; Visit Provider Internal Medicine
DX: R39.9 Unspecified symptoms and signs involving the genitourinary system (principal)
CPT/HCPCS: 81003

== ENCOUNTER 2023-09-25 07:07 | Outpatient (REF) | payer MEDICARE, SELFPAY ==
--- NOTE | ~2023-09-25 | FL_ITS ---
EXAMINATION: XR FLUOROSCOPY WITH IMAGES CLINICAL INFORMATION: Left SI joint pain injection. COMPARISON: Intraoperative fluoroscopy dated 03/28/2023; lumbar spine radiographs dated 01/31/2023. TECHNIQUE: Fluoroscopy Supervised By: Dr. Sean Han. Fluoroscopy Time: 0.1 minutes. Cumulative Dose: 1.79 mGy. DAP: 0.253 Gycm2. Images: 1. FINDINGS: The submitted image shows an injection needle and injected contrast in the vicinity of the left sacroiliac joint. FL/FL guidance in treatment room IMPRESSION: Intraoperative fluoroscopy is provided during left sacroiliac joint pain injection. Please see the patient's Operative Report for full procedural details.
== END 2023-09-25 07:08 | disposition home or self-care (01) ==
LOC: CF 07:07
PROVIDERS: Visit Provider Anesthesiology
DX: M46.1 Sacroiliitis, not elsewhere classified (principal); M53.3 Sacrococcygeal disorders, not elsewhere classified; M47.816 Spondylosis without myelopathy or radiculopathy, lumbar region; M51.36 Other intervertebral disc degeneration, lumbar region
CPT/HCPCS: 27096; J1100; J2795; Q9967

== ENCOUNTER 2023-09-25 12:23 | Outpatient (AMB) | payer MEDICARE, SELFPAY ==
[2023-09-25 13:45] VITALS: BP 136/82; PULSE 92; RESP 20; O2SAT 97; BMI 24.3
--- NOTE | 2023-09-25 13:45 | MHC.OFFVIS ---
Intake Vital Signs 09/25/23 13:45 09/25/23 13:46 Height 5 ft 3 in Weight 137 lb BMI 24.3 BP 136/82 122/76 Blood Pressure Location Lt brachial Lt brachial Position Sitting Sitting Respiration 20 18 Pulse 92 88 Pulse Source Pulse Oximeter Pulse Oximeter Pulse Oximetry (%) 97 96 Oxygen Delivery Method Room Air Room Air Comment Pre-Op Post-Op Intake Visit Reasons: LEFT THERAPEUTIC SIJ INJECTION(W/DECADRON) Allergies Jgnmzty-LOJ-ZwR Reductase Inhibitor [LMBYLTA-XAP-RWM REDUCTASE INHIBITOR] Allergy (Mild, Verified 05/01/23 10:05) ACHY atorvastatin [From Lipitor] Allergy (Unknown, Verified 05/01/23 10:05) Muscle Pain ciprofloxacin [Cipro] Allergy (Unknown, Verified 05/01/23 10:05) Anaphylaxis metronidazole Allergy (Unknown, Verified 05/01/23 10:05) anaphylaxis rosuvastatin [From Crestor] Allergy (Unknown, Verified 05/01/23 10:05) Muscle Pain simvastatin Allergy (Unknown, Verified 05/01/23 10:05) Muscle Pain Sulfa (Sulfonamide Antibiotics) Allergy (Unknown, Verified 05/01/23 10:05) diarrhea sulfamethoxazole [From Bactrim] Allergy (Unknown, Verified 05/01/23 10:05) Unknown trimethoprim [From Bactrim] Allergy (Unknown, Verified 05/01/23 10:05) Unknown hydrochlorothiazide Adverse Reaction (Intermediate, Verified 05/01/23 10:05) myalgia lisinopril Adverse Reaction (Intermediate, Verified 05/01/23 10:05) Cough SEASONAL ALLERGIES Allergy (Intermediate, Uncoded 04/13/23 15:41) ITCHING PFSH Medical History Sacroiliac joint dysfunction of left side Breast density Adult general medical exam Chest tightness Shortness of breath Drug allergy, antibiotic Diverticular disease Irritable bowel syndrome Pulmonary nodule Insomnia Anxiety Family history of pancreatic cancer Family history of malignant neoplasm of endometrium Hypercholesterolemia History of left breast cancer Hypothyroidism Hypertension Surgical History History of cataract surgery History of colonoscopy History of tonsillectomy History of left mastectomy History of laparoscopy Family History Father History of cirrhosis Lung cancer Mother Pancreatic cancer CVD (cardiovascular disease) Hypertension Sister History of endometrial cancer Brother No problems noted. 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) Cognitive needs: No Hearing needs: No Vision needs: Yes Female Reproductive History Menstrual Age of Menarche: 14 Date of menopause: 06/25/02 Physical Exam Vital Signs: Last Vital Signs Pulse 88 09/25/23 13:46 Resp 18 09/25/23 13:46 BP 122/76 09/25/23 13:46 Pulse Ox 96 09/25/23 13:46 Oxygen Delivery Method Room Air 09/25/23 13:46 BMI result Body Mass Index 24.3 Assessment & Plan Assessment & Plan (1) Sacroiliitis: Code(s): M46.1 - Sacroiliitis, not elsewhere classified (2) Sacroiliac joint dysfunction of left side: Code(s): M53.3 - Sacrococcygeal disorders, not elsewhere classified Plan: ?Left therapeutic sacroiliac joint injection Informed consent was explained thoroughly to the patient.? All questions about benefits and risks for the procedure were answered. Patient came to the operating room and was positioned prone on the operating table with the pillow under her pelvis. ?Citizen [place] [employer]hes[employer] monitors were applied and patient was sedated. ? Time out was performed delineating name and of the patient, site and side of the procedure, nature of the procedure and potential patient?s risks. The lower back of the patient and upper buttocks was prepped with ChloraPrep prepped and draped with sterile utility drapes.? C-arm was brought over the operating field and square picture of patient's pelvis was demonstrated on the screen.? For the left joint tilting C-arm contralateral to the site of the joint the posterior joint silhouette was delineated on the screen. Skin projection of the joint was chosen as a target of the injection and it was injected ?slightly medial to the location of the joint with 25 gauge needle using local lidocaine 2% without epinephrine. After that 22 gauge 3 and 1/2 inch needle was driven to the joint silhouette in tunnel vision fashion.? When needle entered the joint capsule injection of the contrast was performed demonstrating intra-articular spread of the contrast.? After that 4 cc. of ropivacaine 0.5% mixed with Decadron 10 mg was injected into the joint. Upon completion of the injections the needle was removed and sterile dressing was applied.? Upon completion of the injection patient was awaken taken outside of the operating room to the recovery room where recovered uneventfully.? 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 She was referred by our [facility] office and has upcoming follow up with them next month. We discussed interventional treatments for longer term left SIJ pain relief, including therapeutic SIJ injections, neuromodulation with Curonix PNS and sacroiliac joint RFA. Tentatively, we will plan for Left Therapeutic SIJ injection with Decadron, with local and fluoroscopy. We also discussed diagnostic left MBB for potential Sprint PNS trial for axial low back pain. 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 Expectations, risks and benefits were reviewed.All questions and concerns have been answered and patient agreed with the plan. Follow up as needed. Orders: Orders FL guidance in treatment room Today M46.1 - Sacroiliitis, not elsewhere classified Coding Level of Care Code Procedure Only Diagnoses Sacroiliitis M46.1 Sacroiliac joint dysfunction of left side M53.3 Spondylosis of lumbar region without myelopathy or radiculopathy M47.816 Lumbar degenerative disc disease M51.36
[2023-09-25 13:46] VITALS: BP 122/76; PULSE 88; RESP 18; O2SAT 96
== END 2023-09-25 14:04 | disposition home or self-care (01) ==
LOC: HO.PMCPRC 12:23
PROVIDERS: PCP Internal Medicine; Visit Provider Anesthesiology
DX: M46.1 Sacroiliitis, not elsewhere classified (principal); M53.3 Sacrococcygeal disorders, not elsewhere classified
CPT/HCPCS: 27096

== ENCOUNTER 2023-10-16 09:29 | Outpatient (AMB) | payer MEDICARE, SELFPAY ==
[2023-10-16 09:44] VITALS: BP 140/78; PULSE 80; O2SAT 98; BMI 24.1
--- NOTE | 2023-10-16 09:44 | A.OFFPC_ITS ---
Vital Signs 10/16/23 09:44 Height 5 ft 3 in Weight 136 lb BMI 24.1 BP 140/78 H Blood Pressure Location Lt brachial Position Sitting Pulse 80 Pulse Source Pulse Oximeter Pulse Oximetry (%) 98 Oxygen Delivery Method Room Air Intake Visit Reasons: Hypertension Allergies Bkfggag-ANE-GeV Reductase Inhibitor [VJIVARY-ZTB-BBP REDUCTASE INHIBITOR] Allergy (Mild, Verified 10/16/23 09:45) ACHY atorvastatin [From Lipitor] Allergy (Unknown, Verified 10/16/23 09:45) Muscle Pain ciprofloxacin [Cipro] Allergy (Unknown, Verified 10/16/23 09:45) Anaphylaxis metronidazole Allergy (Unknown, Verified 10/16/23 09:45) anaphylaxis rosuvastatin [From Crestor] Allergy (Unknown, Verified 10/16/23 09:45) Muscle Pain simvastatin Allergy (Unknown, Verified 10/16/23 09:45) Muscle Pain Sulfa (Sulfonamide Antibiotics) Allergy (Unknown, Verified 10/16/23 09:45) diarrhea sulfamethoxazole [From Bactrim] Allergy (Unknown, Verified 10/16/23 09:45) Unknown trimethoprim [From Bactrim] Allergy (Unknown, Verified 10/16/23 09:45) Unknown hydrochlorothiazide Adverse Reaction (Intermediate, Verified 10/16/23 09:45) myalgia lisinopril Adverse Reaction (Intermediate, Verified 10/16/23 09:45) Cough SEASONAL ALLERGIES Allergy (Intermediate, Uncoded 10/16/23 09:45) ITCHING Medication List - Last Reconciled 10/16/23 by Laurence Gurrola, amlodipine 5 mg PO DAILY azelaic acid 15% 1 appl topical BID calcium carbonate-vitamin D3 600 mg-5 mcg (200 unit) (Calcium 600 + D(3)) 1 cap PO DAILY diclofenac sodium 1% 2 grams topical QID diphenoxylate-atropine 2.5-0.025 mg (Lomotil) 1 tab PO BID PRN erythromycin 1 appl ophthalmic (eye) DAILY ezetimibe (Zetia) 10 mg PO DAILY fluticasone propionate 50 mcg/actuation 2 sprays intranasal DAILY ketoconazole 2% 1 appl topical 2XW levothyroxine 75 mcg PO QAM 90 days [mastectomy bra (left) As directed] multivitamin 1 tab PO DAILY prosthetics As directed raloxifene 60 mg orally Saccharomyces boulardii (Daily Probiotic (S. boulardii)) 250 mg PO DAILY Tobacco use date assessed: 10/16/23 Fall risk assessment: No Falls in past year Last assessed Fall Risk: 10/16/23 Dental Screening Dental Screen Date: 10/16/23 Did you have a dental visit in the last 12 months?: Yes Did you have a dental problem in the last 6 months where you did not have access to dental care?: No Was dental information given to patient?: Patient has dentist HPI Hypertension HPI Details 73-year-old female with a history of hyp ertension hypothyroidism history of left breast cancer hypercholesterolemia GERD coming in for follow-up. Last seen in March 2023 patient does have lumbar radiculopathy and seeing pain management. Patient's mammogram was due in May, bone density is up to date and colonoscopy is up-to-date. Earlier this month was seen by the leydi newell left therapeutic S IJ injection [facility] Medical History Sacroiliac joint dysfunction of left side Breast density Adult general medical exam Chest tightness Shortness of breath Drug allergy, antibiotic Diverticular disease Irritable bowel syndrome Pulmonary nodule Insomnia Anxiety Family history of pancreatic cancer Family history of malignant neoplasm of endometrium Hypercholesterolemia History of left breast cancer Hypothyroidism Hypertension Surgical History History of cataract surgery History of colonoscopy History of tonsillectomy History of left mastectomy History of laparoscopy Family History Father History of cirrhosis Lung cancer Mother Pancreatic cancer CVD (cardiovascular disease) Hypertension Sister History of endometrial cancer Brother No problems noted. 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 1. Little interest or pleasure in doing things: not at all 2. Feeling down, depressed, or hopeless: not at all 3. Trouble falling or staying asleep, or sleeping too much: not at all 4. Feeling tired or having little energy: not at all 5. Poor appetite or overeating: not at all 6. Feeling bad about yourself - or that you are a failure or have let yourself or your family down: not at all 7. Trouble concentrating on things, such as reading the newspaper or watching television: not at all 8. Moving or speaking so slowly that other people could have noticed. Or the opposite - being so fidgety or restless that you have been moving around a lot more than usual: not at all 9. Thoughts that you would be better off or of hurting yourself in some way: not at all Total score: 0 Depression Screening Interpretation: Negative Depression Screening Done: Yes 81680 - PHQ-9 Billing: Yes Source: Developed by Drs. Abran Lizama, Emilee Philippe, Mansoor Rivas and colleagues, with an educational smith from [employer]. Thrive Questionnaire Date Thrive assessed: 10/16/23 I am a: Patient What is your living situation today?: I have a steady place to live Within the past 12 months, did the food you bought not last and you didn't have the money to get more?: Never true Within the past 12 months, did you worry whether your food would run out before you got money to buy more?: Never true Do you have trouble paying for medicines?: No Do you have trouble getting transportation to medical appointments?: No Do you have trouble paying your heating and electricity bill?: No Do you have trouble taking care of your child, family member or friend?: No Do you have trouble with day-to-day activities such as bathing, preparing meals, shopping, managing finances, etc.?: No Are you currently unemployed and looking for a job?: No Are you interested in more education?: No Currently or been in a relationship where the following occur: no concerns reported THRIVE Score: 0 AUDIT C Alcohol Use Questionnaire (AUDIT-C) 1. How often do you have a drink containing alcohol?: Never 3. How often do you have six or more drinks on one occasion?: Never Total Score: 0 Score Reviewed/Action Taken: No FEDERICO-7 AMB Questionnaire FEDERICO-7 Date FEDERICO - 7 assessed: 10/16/23 Feeling nervous, anxious, or on edge: 0 = Not at all Not being able to stop or control worryin = Not at all Worrying too much about different things: 0 = Not at all Trouble relaxin = Not at all Being so restless that it is hard to sit still: 0 = Not at all Becoming easily annoyed or irritable: 0 = Not at all Feeling afraid as if something awful might happen: 0 = Not at all Total FEDERICO-7 score (0-4 normal; 5-9 mild; 10-14 moderate; 15-21 severe): 0 Source: Developed by Drs. Abran Lizama, Emilee Philippe, Mansoor Rivas and colleagues, with an educational smith from [employer]. Physical exam (Primary Care) Vital Signs: Last Vital Signs Pulse 80 10/16/23 09:44 BP 140/78 H 10/16/23 09:44 Pulse Ox 98 10/16/23 09:44 Oxygen Delivery Method Room Air 10/16/23 09:44 BMI result Body Mass Index 24.1 Tobacco/Smoking Status: Tobacco use Status Tobacco use date assessed 10/16/23 10/16/23 09:49 Patient Tobacco Use Status Never used Tobacco 10/16/23 09:49 e-Cigarette/Vaping Use Never Used 10/16/23 09:49 PHQ-9: PHQ-9 Score PHQ-9: Total score 0 10/16/23 09:49 Depression Screening Interpretation: Negative Thrive Assessment: Date of Thrive Assessment Date Thrive assessed 10/16/23 10/16/23 09:49 Currently or been in a relationship where the following occur: no concerns reported Const General: alert; No acute distress Eyes Conjunctivae: conjunctivae normal Resp Auscultation: clear to auscultation bilaterally Cardio Rate: regular rate Rhythm: regular rhythm GI Inspection: Yes normal to inspection Extrem General: Yes normal to inspection and No edema Assessment and Plan Assessment & Plan (1) Hypertension: Code(s): I10 - Essential (primary) hypertension Qualifiers: Hypertension type: essential hypertension Qualified Code(s): I10 - Essential (primary) hypertension Plan: Continue with blood pressure medication. Decrease salt intake and exercise presently on amlodipine 5 mg once a day (2) Hypothyroidism: Comment: History of Maia's Code(s): E03.9 - Hypothyroidism, unspecified Qualifiers: Hypothyroidism type: acquired Qualified Code(s): E03.9 - Hypothyroidism, unspecified Plan: Continue with thyroid medication March 2023 last blood work (3) History of left breast cancer: Comment: Mammogram June 2023 Code(s): Z85.3 - Personal history of malignant neoplasm of breast Plan: Up-to-date with mammogram (4) Hypercholesterolemia: Code(s): E78.00 - Pure hypercholesterolemia, unspecified Plan: Avoid fried foods, chicken skin, eggs, butter margarine, pastries and meat. Be it pork or beef they have a lot of cholesterol LDL goal of less than 130 and triglyceride of less than 150. Presently on Zetia (5) GERD (gastroesophageal reflux disease): Code(s): K21.9 - Gastro-esophageal reflux disease without esophagitis Plan: Avoid the foods that causes that usually spicy foods, tomato products, juices, coffee, soda and foods that your sensitive to. After eating do not lie down, allow 3-4 hours before in lie down. And keep the head of bed above 30 degrees to avoid the acid from going up. (6) Spondylosis of lumbar region without myelopathy or radiculopathy: Code(s): M47.816 - Spondylosis without myelopathy or radiculopathy, lumbar region Plan: Patient follows up with pain management and just had S IJ injections. Orders: Orders Free T4 (Free Thyroxine) 5 Months E03.9 - Hypothyroidism, unspecified Thyroid Stimulating Hormone 5 Months E03.9 - Hypothyroidism, unspecified Vitamin B12 and Folate 5 Months E03.9 - Hypothyroidism, unspecified Lipid Panel 5 Months E03.9 - Hypothyroidism, unspecified, E78.00 - Pure hypercholesterolemia, unspecified Vitamin D 25-OH Total 5 Months E03.9 - Hypothyroidism, unspecified Complete Blood Count Auto Diff 5 Months E03.9 - Hypothyroidism, unspecified Comprehensive Met. Panel 5 Months E03.9 - Hypothyroidism, unspecified Medications: Refilled ezetimibe (Zetia) 10 mg PO DAILY 90 tabs 3RF E03.9 - Hypothyroidism, unspecified Coding Level of Care Code Est Pt Level 4 (69687) Diagnoses Essential hypertension I10 Hypertension type: essential hypertension Acquired hypothyroidism E03.9 Hypothyroidism type: acquired History of left breast cancer Z85.3 Hypercholesterolemia E78.00 GERD (gastroesophageal reflux disease) K21.9 Spondylosis of lumbar region without myelopathy or radiculopathy M47.816
== END 2023-10-16 10:19 | disposition home or self-care (01) ==
PROVIDERS: PCP Internal Medicine; Visit Provider Internal Medicine
DX: I10 Essential (primary) hypertension (principal); E03.9 Hypothyroidism, unspecified; Z85.3 Personal history of malignant neoplasm of breast; E78.00 Pure hypercholesterolemia, unspecified; K21.9 Gastro-esophageal reflux disease without esophagitis; M47.816 Spondylosis without myelopathy or radiculopathy, lumbar region
CPT/HCPCS: 99214

== ENCOUNTER 2023-10-23 12:33 | Outpatient (AMB) | payer MEDICARE, SELFPAY ==
--- NOTE | 2023-10-23 12:52 | A.OFFVIS_ITS ---
Vital Signs 10/23/23 12:56 Height 5 ft 3 in Weight 134 lb BMI 23.7 BP 139/70 Blood Pressure Location Lt brachial Position Sitting Pulse 87 Pulse Source Pulse Oximeter Pulse Oximetry (%) 98 Oxygen Delivery Method Room Air Intake Visit Reasons: LEFT THERAPEUTIC SIJ INJECTION Intake Note: Pain today 08/04 [employer] Guidance Counselor Required: No Accompanied by: Self / Same As Patient Allergies Lquuplt-FMO-TlA Reductase Inhibitor [[id number] REDUCTASE INHIBITOR] Allergy (Mild, Verified 10/23/23 12:56) ACHY atorvastatin [From Lipitor] Allergy (Unknown, Verified 10/23/23 12:56) Muscle Pain ciprofloxacin [Cipro] Allergy (Unknown, Verified 10/23/23 12:56) Anaphylaxis metronidazole Allergy (Unknown, Verified 10/23/23 12:56) anaphylaxis rosuvastatin [From Crestor] Allergy (Unknown, Verified 10/23/23 12:56) Muscle Pain simvastatin Allergy (Unknown, Verified 10/23/23 12:56) Muscle Pain Sulfa (Sulfonamide Antibiotics) Allergy (Unknown, Verified 10/23/23 12:56) diarrhea sulfamethoxazole [From Bactrim] Allergy (Unknown, Verified 10/23/23 12:56) Unknown trimethoprim [From Bactrim] Allergy (Unknown, Verified 10/23/23 12:56) Unknown hydrochlorothiazide Adverse Reaction (Intermediate, Verified 10/23/23 12:56) myalgia lisinopril Adverse Reaction (Intermediate, Verified 10/23/23 12:56) Cough SEASONAL ALLERGIES Allergy (Intermediate, Uncoded 10/16/23 09:45) ITCHING HPI Comments Details: Patient presents today for follow up to assess response to Left Therapeutic SIJ injection on 09/25/[address] Han. Patient reports ongoing 80% pain relief since procedure with improved functioning, mobility, ADLs and sleep. She is very content with pain improvement. Patient reports occasional left lateral buttock and lateral hip tightness during golfing which is relieved by home exercise program of gentle streching, Tylenol and heat therapy. Past Procedures: 09/25/23: Left Therapeutic SIJ injection with Decadron 10mg- 80% ongoing pain relief 03/27/23: Left Therapeutic SIJ injection with Decadron 10mg- 90% ongoing pain relief 03/06/23: Left Diagnostic SIJ injection- 80-90% pain relief for over 24 hours PRIOR: Patient is very pleasant 73 years old female with prior history of left breast cancer s/p mastectomy, osteopenia, left sacroiliac joint pain, chronic low back pain presents today for initial evaluation of left sided low back pain and left SIJ pain. She was referred to our office by Dr. Cortes oil inspector for left diagnostic SIJ injection which was completed by Dr. Han on 03/06/23. Patient reports she used to manage her left sided back pain 2 years and 6 months ago with PT, NSAIDs, heat and ice therapy, and activity modifications which resolved her pain previously. However, due to starting HTN medications, she was told no longer to take NSAIDs. Patient reports 80-90% pain relief for over 24 hours following the diagnostic SIJ injection 2 days ago with ongoing pain relief. Patient is interested in longer term pain relief interventional treatments to alleviate left SIJ pain. Recent lumbosacral imaging is noted for mild levoscoliosis of lower lumbar spine with degenerative disc changes and moderate left L4-L5 facet joint arthropathy. Patient denies any fever, weight loss, abdominal or groin pain, bladder or bowel dysfunction or saddle anesthesia. Location Low back pain, left side Duration Acute on chronic worsening for past 6 month Characteristics of symptom or complaint Aching, spasming, sharp, dull Aggravating or associated factors Prolonged sitting, climbing, changing positions Relieving factors Tylenol, ice and heat therapy, NSAIDs Treatment Physical therapy in 2020, diagnostic left SIJ injections 03/06/23 [facility] Medical History Sacroiliac joint dysfunction of left side Breast density Adult general medical exam Chest tightness Shortness of breath Drug allergy, antibiotic Diverticular disease Irritable bowel syndrome Pulmonary nodule Insomnia Anxiety Family history of pancreatic cancer Family history of malignant neoplasm of endometrium Hypercholesterolemia History of left breast cancer Hypothyroidism Hypertension Surgical History History of cataract surgery History of colonoscopy History of tonsillectomy History of left mastectomy History of laparoscopy Family History Father History of cirrhosis Lung cancer Mother Pancreatic cancer CVD (cardiovascular disease) Hypertension Sister History of endometrial cancer Brother No problems noted. 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 Alert and oriented. Mood and affect appropriate. Follows and participates in conversation appropriately. Respiratory effort is unlabored. No cough. Able to transition from sit to stand unassisted. Ambulates with bilaterally normal heel strike and toe off. Back/Spine/Pelvis Cervical Spine: cervical ROM normal and No Cervical spine tenderness Thoracic/Lumbar Spine: thoracic and lumbar spine normal to inspection, No Thoracic/lumbar spine scar(s), thoraco-lumbar ROM normal, Lasegue's sign negative, straight leg raise negative bilaterally, No thoracic spinal tenderness and No lumbar spinal tenderness Pelvis: no buttock tenderness Sacroiliac joints: on the right nontender and on the left (mild TTP) tender to palpation Results Reviewed Results Reviewed: XR LUMBOSACRAL SPINE 01/31/23 CLINICAL INFORMATION: Sacrococcygeal disorder. FINDINGS: There is minimal levoscoliosis along the lower lumbar spine. Loss of L4-L5 and L5-S1 disc heights is noted. There is moderate left L4-L5 facet joint arthropathy. No acute fracture, lytic or sclerotic process seen. The paravertebral soft tissues are normal. The SI joints are normal. IMPRESSION: Mild levoscoliosis of lower lumbar spine with degenerative disc changes. No visible acute fracture, dislocation or subluxation seen. Assessment & Plan Assessment & Plan (1) Sacroiliac joint dysfunction of left side: Code(s): M53.3 - Sacrococcygeal disorders, not elsewhere classified Category: Medical (2) Sacroiliitis: Code(s): M46.1 - Sacroiliitis, not elsewhere classified Category: Medical (3) Spondylosis of lumbar region without myelopathy or radiculopathy: Code(s): M47.816 - Spondylosis without myelopathy or radiculopathy, lumbar region Category: Medical Plan Patient status post left SI joint therapeutic injection on 09/25/23 with ongoing 80% pain relief, improved functioning, mobility, and sleep. She is able to enjoy outdoor activities, increased tolerance with prolong driving and able to play golf without significant symptoms. Patient will monitor for her pain and notify us when pain returns to baseline. Encouraged to continue HEP, SI joint stretching exercises, good posture, adequate daily hydration and stay physically active as tolerated. All questions and concerns have been answered and patient agreed with the plan. Follow up as needed. Coding Level of Care Code Est Pt Level 3 (03506) Diagnoses Sacroiliac joint dysfunction of left side M53.3 Sacroiliitis M46.1 Spondylosis of lumbar region without myelopathy or radiculopathy M47.816
[2023-10-23 12:56] VITALS: BP 139/70; PULSE 87; O2SAT 98; BMI 23.7
== END 2023-10-23 13:01 | disposition home or self-care (01) ==
PROVIDERS: PCP Internal Medicine; Visit Provider Nurse Practitioner Family
DX: M53.3 Sacrococcygeal disorders, not elsewhere classified (principal); M46.1 Sacroiliitis, not elsewhere classified; M47.816 Spondylosis without myelopathy or radiculopathy, lumbar region
CPT/HCPCS: 99213

== ENCOUNTER → 2023-10-23 12:33 | Outpatient (BNVA) | payer MEDICARE, SELFPAY | PROVIDERS: PCP Internal Medicine; Visit Provider Nurse Practitioner Family | DX: M53.3 Sacrococcygeal disorders, not elsewhere classified (principal); M46.1 Sacroiliitis, not elsewhere classified; M47.816 Spondylosis without myelopathy or radiculopathy, lumbar region | CPT/HCPCS: 99212 ==

== ENCOUNTER 2024-02-01 09:50 | Outpatient (REF) | payer MEDICARE, SELFPAY ==
--- NOTE | ~2024-02-01 | MM_ITS ---
EXAMINATION: BONE DENSITOMETRY CLINICAL INDICATION: Osteopenia. COMPARISON: Previous BD dated 11/10/2021 and baseline BD dated 10/05/2006. TECHNIQUE: Using a [employer] DXA System (software version: 13.1) manufactured by [employer], dual-energy x-ray absorptiometry was performed of the lumbar spine and left hip. The images are of good technical quality. Summary results are attached. FINDINGS: LEFT FEMUR, NECK: Current: BMD 0.873 g/cm2, Z-score 0.7, T-score -1.2, osteopenia. Prior: BMD 0.867 g/cm2. Baseline: BMD 0.811 g/cm2. LEFT FEMUR, TOTAL: Current: BMD 0.880 g/cm2, Z-score 0.7, T-score -1.0, normal, 2.7% decrease from previous, 5.0% decrease from baseline (<5% change is not significant). Prior: BMD 0.904 g/cm2. Baseline: BMD 0.926 g/cm2. AP SPINE L1-L4: Current: BMD 1.272 g/cm2, Z-score 2.6, T-score 0.8, normal, 0.2% decrease from previous, 5.6% increase from baseline (<5% change is not significant). Prior: BMD 1.274 g/cm2. Baseline: BMD 1.205 g/cm2. IDENTIFIED RISK FACTORS: Menopause. HISTORY OF FRACTURE: None listed. MEDICATIONS: Calcium supplements or multivitamin, vitamin D, ERT/SERMS. MM/XR DEXA axial skeleton IMPRESSION: 1. DIAGNOSIS: Osteopenia based on the lowest T-score value of -1.2 in the femoral neck applying World Health Organization criteria. 2. 10-YEAR FRACTURE RISK PREDICTION, FRAX: Not performed in this patient on estrogen or bone building treatments. 3. Treatment Recommendations: NOF guidelines recommend consideration for treatment in postmenopausal women and men age 50 and older presenting with the following: -A hip or vertebral (clinical or morphometric) fracture. -T-score less than or equal to -2.5 at the femoral neck or spine after appropriate evaluation to exclude secondary causes. -Low bone mass at the hip or spine and a 10-year fracture probability by FRAX of greater than or equal to 3% for hip fracture or greater than or equal to 20% for major osteoporotic fracture based on the [place] adapted WHO algorithm. 4. Other Recommendations: All treatment decisions require clinical judgment and consideration of individual patient factors, including patient preferences, comorbidities, previous drug use, risk factors not captured in the FRAX model (e.g. frailty, falls, vitamin D deficiency, increased bone turnover, interval significant decline in bone density) and possible under or overestimation of fracture risk by FRAX. Additional medical evaluation for secondary cause of low bone mineral density may be appropriate. FUTURE SCAN RECOMMENDATION: People with diagnosed cases of osteoporosis or at high risk for fracture should have regular bone mineral density tests. For patients eligible for Medicare, routine testing is allowed once every 2 years. The testing frequency can be increased to one year for patients who have rapidly progressing disease, those who are receiving or discontinuing medical therapy to restore bone mass, or have additional risk factors.
== END 2024-02-01 09:51 | disposition home or self-care (01) ==
LOC: HO.MAMMO 09:50
PROVIDERS: PCP Internal Medicine; Visit Provider Internal Medicine Medical Oncology
DX: Z13.820 Encounter for screening for osteoporosis (principal); M85.89 Other specified disorders of bone density and structure, multiple sites
CPT/HCPCS: 77080

== ENCOUNTER 2024-02-05 12:32 | Outpatient (AMB) | payer MEDICARE, SELFPAY ==
[2024-02-05 12:37] VITALS: BP 122/78; PULSE 79; O2SAT 99; BMI 23.9
--- NOTE | 2024-02-05 12:37 | A.OFFVIS_ITS ---
Intake Vital Signs 02/05/24 12:37 Height 5 ft 3 in Weight 135 lb 0.4 oz BMI 23.9 BP 122/78 Blood Pressure Location Lt brachial Position Sitting Pulse 79 Pulse Source Pulse Oximeter Pulse Oximetry (%) 99 Oxygen Delivery Method Room Air Intake Visit Reasons: Wellness Plastic Surgery Nurse Required: No Allergies Rptpvbw-UCF-UhY Reductase Inhibitor [FTBDWSS-VRK-YCV REDUCTASE INHIBITOR] Allergy (Mild, Verified 02/05/24 13:05) ACHY atorvastatin [From Lipitor] Allergy (Unknown, Verified 02/05/24 13:05) Muscle Pain ciprofloxacin [Cipro] Allergy (Unknown, Verified 02/05/24 13:05) Anaphylaxis metronidazole Allergy (Unknown, Verified 02/05/24 13:05) anaphylaxis rosuvastatin [From Crestor] Allergy (Unknown, Verified 02/05/24 13:05) Muscle Pain simvastatin Allergy (Unknown, Verified 02/05/24 13:05) Muscle Pain Sulfa (Sulfonamide Antibiotics) Allergy (Unknown, Verified 02/05/24 13:05) diarrhea sulfamethoxazole [From Bactrim] Allergy (Unknown, Verified 02/05/24 13:05) Unknown trimethoprim [From Bactrim] Allergy (Unknown, Verified 02/05/24 13:05) Unknown hydrochlorothiazide Adverse Reaction (Intermediate, Verified 02/05/24 13:05) myalgia lisinopril Adverse Reaction (Intermediate, Verified 02/05/24 13:05) Cough SEASONAL ALLERGIES Allergy (Intermediate, Uncoded 02/05/24 13:05) ITCHING Medication List - Last Reconciled 02/05/24 by Adrianna Encinas PA-C amlodipine 5 mg PO DAILY azelaic acid 15% 1 appl topical BID calcium carbonate-vitamin D3 600 mg-5 mcg (200 unit) (Calcium 600 + D(3)) 1 cap PO DAILY ezetimibe (Zetia) 10 mg PO DAILY fluticasone propionate 50 mcg/actuation 2 sprays intranasal DAILY ketoconazole 2% 1 appl topical 2XW levothyroxine 75 mcg PO QAM 90 days [mastectomy bra (left) As directed] multivitamin 1 tab PO DAILY prosthetics As directed raloxifene 60 mg orally Saccharomyces boulardii (Daily Probiotic (S. boulardii)) 250 mg PO DAILY HPI Wellness HPI Details 74-year-old female with past medical his tory of hypertension, hypothyroidism, hypercholesterolemia, IBS, GERD, and osteopenia last seen by Dr. Gurrola 09/2023 coming in for annual wellness visit.? In review of the notes, patient completed bone density 02/01/2024 and diagnosed with osteopenia.?Patient also falls with Hematology Oncology for history breast cancer status post mastectomy 02/2002 and currently on the raloxifene. Continue with annual mammograms and follow up in 1 year.? Patient also follows with pain management for SI joint injections. Patient states she has been doing generally well. She did have a flare of diarrhea related to her irritable bowel syndrome this past month and is due to follow up with GI in the upcoming months. The diarrhea has resolved at this time. She mentions the injections for her hip have been helping although she does have some occasional tightness the pain has greatly improved. She has no other acute concerns at this time. [facility] Medical History Sacroiliac joint dysfunction of left side Breast density Adult general medical exam Chest tightness Shortness of breath Drug allergy, antibiotic Diverticular disease Irritable bowel syndrome Pulmonary nodule Insomnia Anxiety Family history of pancreatic cancer Family history of malignant neoplasm of endometrium Hypercholesterolemia History of left breast cancer Hypothyroidism Hypertension Surgical History History of cataract surgery History of colonoscopy History of tonsillectomy History of left mastectomy History of laparoscopy Family History Father History of cirrhosis Lung cancer Mother Pancreatic cancer CVD (cardiovascular disease) Hypertension Sister History of endometrial cancer Brother No problems noted. 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) Cognitive needs: No Hearing needs: No Vision needs: Yes Female Reproductive History Menstrual Age of Menarche: 14 Date of menopause: 06/25/02 Questionnaire Medicare Wellness Checkup [age] What gender do you identify with?: female During the past 4 weeks, how much have you been bothered by emotional problems such as feeling anxious, depressed, irritable, sad or downhearted, and blue?: slightly During the past 4 weeks, has your physical & emotional health limited your social activities with family, friends, neighbors, or groups?: not at all During the past 4 weeks, how much bodily pain have you generally had?: mild pain (back ) During the past 4 weeks, was someone available to help you if you needed & wanted help?: yes, as much as I wanted During the past 4 weeks, what was the hardest physical activity you could do for at least 2 minutes?: moderate Can you get to places out of walking distance without help? (For eg., can you travel alone on buses, taxis or drive your car?): Yes Can you go shopping for groceries or clothes without someone's help?: Yes Can you prepare your own meals?: Yes Can you do your housework without help?: Yes Because of any health problems, do you need the help of another person with your personal care needs such as eating, bathing, dressing or getting around the house?: No Can you handle your own money without help?: Yes During the past 4 weeks, how would you rate your health in general?: very good During the past 4 weeks how have things been going for you?: pretty well Are you having difficulties driving your car?: no Do you always fasten your seat belt when you are in a car?: yes, usually During past 4 weeks, have you been bothered by the following: never: Falling or dizzy when standing up, Sexual problems?, Trouble eating well?, Teeth or denture problems? and Problems using the telephone? and sometimes: Tiredness or fatigue? Have you fallen 2 or more times in the past year?: No Are you afraid of falling?: No Are you a smoker?: no During the past 4 weeks, how many drinks of wine, beer, or other alcoholic beverages did you have?: no alcohol at all Do you exercise for about 20 minutes 3 or more times a week?: yes, most of the time Have you been given information to help with the following?: yes: Hazards in your house that might hurt you? and yes: Keeping track of your medications? How often do you have trouble taking medicines the way you have been told to take them?: I always take medicine as prescribed How confident are you that you can control & manage most of your health problems?: very confident What is your race?: White PHQ-9 Over the last 2 weeks, how often have you been bothered by any of the following problems? 1. Little interest or pleasure in doing things: not at all 2. Feeling down, depressed, or hopeless: not at all 3. Trouble falling or staying asleep, or sleeping too much: several days 4. Feeling tired or having little energy: several days 5. Poor appetite or overeating: not at all 6. Feeling bad about yourself - or that you are a failure or have let yourself or your family down: not at all 7. Trouble concentrating on things, such as reading the newspaper or watching television: not at all 8. Moving or speaking so slowly that other people could have noticed. Or the opposite - being so fidgety or restless that you have been moving around a lot more than usual: not at all 9. Thoughts that you would be better off or of hurting yourself in some way: not at all Total score: 2 Depression Screening Interpretation: Negative Depression Screening Done: Yes 08189 - PHQ-9 Billing: Yes Source: Developed by Drs. Abran Lizama, Emilee Philippe, Mansoor Rivas and colleagues, with an educational smith from [employer]. Review of Systems Const Denies body aches, Denies fatigue, Denies fever(s), Denies frequent falls, Reports headache(s) and Denies weakness Eyes Reports no additional complaints and Denies change in vision ENT Denies dysphagia, Denies dizziness, Denies facial pain, Reports headache(s), Denies nasal congestion and Denies odynophagia Card Denies chest pain, Denies syncope, Denies irregular heart rhythm, Denies leg edema, Denies lightheadedness and Denies dyspnea Resp Denies cough and Denies dyspnea GI Denies constipation, Denies dysphagia, Denies dyspepsia, Denies diarrhea, Denies nausea, Denies odynophagia and Denies vomiting Denies urinary frequency, Denies dysuria, Denies urinary hesitancy and Denies urinary urgency Musc Denies back pain and Denies myalgias Skin/Breast Reports system reviewed and no additional complaints, except as documented Neuro Denies dizziness, Denies syncope, Denies frequent falls, Reports headache(s) and Denies weakness Psych Reports no additional complaints Endo Denies fatigue Physical Exam Vital Signs: Oxygen Delivery Method Room Air 02/05/24 12:37 Const General: cooperative, healthy appearing, comfortable and no acute distress Orientation/consciousness: patient oriented x3 HEENT Head: Yes normocephalic Ears: hearing grossly normal bilaterally, external ears normal, TM's normal bilaterally and EAC's normal General nose exam: Normal external nose present Face and sinus: Yes normal facial exam and Yes sinuses nontender Mouth: Normal oral and palatal mucosa present and tongue normal Throat: Yes posterior oropharynx normal Eyes General: appearance normal, both eyes and all related structures Conjunctivae: conjunctivae normal Pupils: Equal, round and reactive pupils present EOM: EOMs intact bilaterally and No Nystagmus present Neck Neck: Yes normal visual inspection, Yes full ROM and Yes no lymphadenopathy Chest Chest palpation & inspection: normal inspection of the chest Resp Effort & Inspection: normal respiratory effort Auscultation: clear to auscultation bilaterally, no crackles, no rales, no rhonchi, no wheezes and breath sounds present Cardio Rate: regular rate Rhythm: regular rhythm Peripheral pulses: radial pulses present and dorsalis pedis present GI Inspection: Yes normal to inspection and No Abdominal wall edema Palpation (GI): Soft to palpation, not firm and nontender Auscultation: normal bowel sounds Rectal Exam - Female: deferred General: Yes no CVA tenderness Back/Spine/Pelvis Back: no CVA tenderness Skin General skin exam: no rashes or lesions noted Neuro General: patient oriented x3 Cranial nerves: Yes Equal, round and reactive pupils present, Yes Midline tongue present, Yes Ability to bilaterally elevate shoulders present and No Nystagmus present Gait exam (Neuro): Normal gait present Extrem General: Yes normal to inspection, Yes full ROM, No no pedal edema and No edema Psych Speech and movement: Normal speech and movement present Affect: normal affect Insight: Good insight present (Psych) Judgement: Good judgement present (Psych) Assessment & Plan Assessment & Plan (1) Annual wellness visit: Code(s): Z00.00 - Encounter for general adult medical examination without abnormal findings Plan: Patient is up-to-date on all recommended annual screenings and vaccinations for her age. Blood work is up-to-date. Ordered for updated lipid panel and thyroid test. (2) Irritable bowel syndrome: Code(s): K58.9 - Irritable bowel syndrome without diarrhea Plan: Continue to follow with GI as needed. Patient recently had a flare and is scheduled with for an appointment with Dr. Jefferson in the upcoming months. (3) Osteopenia: Code(s): M85.80 - Other specified disorders of bone density and structure, unspecified site Plan: Bone density completed 01/2024 showing osteopenia. Continue on calcium and vitamin D3 and follow up in 1 year for repeat imaging. (4) GERD (gastroesophageal reflux disease): Code(s): K21.9 - Gastro-esophageal reflux disease without esophagitis Plan: Not currently on medication. Avoid trigger foods such as citrus, tomato products, soda, caffeine, spicy foods and other foods that may be irritating to your stomach. Avoid laying flat 3-4 hours after eating and elevate the head of the bed 30 degrees to prevent acid from moving into the esophagus. (5) Hypercholesterolemia: Code(s): E78.00 - Pure hypercholesterolemia, unspecified Plan: Last cholesterol test was elevated we will repeat test and re-evaluate at next appointment. Avoid foods that are high in cholesterol such as red meat, fried foods, eggs and baked goods. (6) History of left breast cancer: Comment: Mammogram June 2023 Code(s): Z85.3 - Personal history of malignant neoplasm of breast Plan: Continue to follow with Hematology Oncology and routine mammograms. Currently on raloxifene (7) Hypothyroidism: Comment: History of Maia's Code(s): E03.9 - Hypothyroidism, unspecified Qualifiers: Hypothyroidism type: acquired Qualified Code(s): E03.9 - Hypothyroidism, unspecified Plan: Continue on levothyroxine. Last thyroid labs within normal limits. (8) Hypertension: Code(s): I10 - Essential (primary) hypertension Qualifiers: Hypertension type: essential hypertension Qualified Code(s): I10 - Essential (primary) hypertension Plan: Blood pressure at goal today. Continue on amlodipine 5 mg daily. Avoid salt intake and encourage healthy diet and regular exercise. Plan This note was constructed using voice recognition software. While every effort has been made to ensure accuracy and family service center director, still areas may have been included sometimes these areas may affect the content or meeting of the given symptoms. Total time spent caring for the patient today was 40minutes. This includes time spent before the visit reviewing the chart, time spent during the visit, and time spent after the visit and documentation. Quality Reporting (2019) Depression/Bipolar (159/160/161/177) PHQ-9: Total score: 2 Coding Level of Care Code Medicare Subsequent (G0439) Diagnoses Annual wellness visit Z00.00 Irritable bowel syndrome K58.9 Osteopenia M85.80 GERD (gastroesophageal reflux disease) K21.9 Hypercholesterolemia E78.00 History of left breast cancer Z85.3 Acquired hypothyroidism E03.9 Hypothyroidism type: acquired Essential hypertension I10 Hypertension type: essential hypertension
== END 2024-02-05 13:26 | disposition home or self-care (01) ==
PROVIDERS: PCP Internal Medicine
DX: Z00.00 Encounter for general adult medical examination without abnormal findings (principal); K58.9 Irritable bowel syndrome, unspecified; M85.80 Other specified disorders of bone density and structure, unspecified site; K21.9 Gastro-esophageal reflux disease without esophagitis; E78.00 Pure hypercholesterolemia, unspecified; Z85.3 Personal history of malignant neoplasm of breast; E03.9 Hypothyroidism, unspecified; I10 Essential (primary) hypertension
CPT/HCPCS: G0439

== ENCOUNTER 2024-02-19 08:45 | Outpatient (AMB) | payer MEDICARE, SELFPAY ==
[2024-02-19 08:56] VITALS: BMI 23.9
--- NOTE | 2024-02-19 08:56 | A.OFFVIS_ITS ---
Vital Signs 02/19/24 08:56 Height 5 ft 3 in Weight 135 lb 0.389 oz BMI 23.9 Intake Visit Reasons: Yearly Breast Exam Intake Note: Patient is seen in office for yearly breast exam. Patient c/o: reports no breast complaints. mm:06/27/23 Supervisor Transferring And Boxing Required: No Accompanied by: Self / Same As Patient Allergies Fwxjxni-FZR-NlC Reductase Inhibitor [[id number]-FAF REDUCTASE INHIBITOR] Allergy (Mild, Verified 02/19/24 09:00) ACHY atorvastatin [From Lipitor] Allergy (Unknown, Verified 02/19/24 09:00) Muscle Pain ciprofloxacin [Cipro] Allergy (Unknown, Verified 02/19/24 09:00) Anaphylaxis metronidazole Allergy (Unknown, Verified 02/19/24 09:00) anaphylaxis rosuvastatin [From Crestor] Allergy (Unknown, Verified 02/19/24 09:00) Muscle Pain simvastatin Allergy (Unknown, Verified 02/19/24 09:00) Muscle Pain Sulfa (Sulfonamide Antibiotics) Allergy (Unknown, Verified 02/19/24 09:00) diarrhea sulfamethoxazole [From Bactrim] Allergy (Unknown, Verified 02/19/24 09:00) Unknown trimethoprim [From Bactrim] Allergy (Unknown, Verified 02/19/24 09:00) Unknown hydrochlorothiazide Adverse Reaction (Intermediate, Verified 02/19/24 09:00) myalgia lisinopril Adverse Reaction (Intermediate, Verified 02/19/24 09:00) Cough SEASONAL ALLERGIES Allergy (Intermediate, Uncoded 02/19/24 09:00) ITCHING Medication List - Last Reconciled 02/19/24 by Rosendo Covarrubias MD amlodipine 5 mg PO DAILY azelaic acid 15% 1 appl topical BID calcium carbonate-vitamin D3 600 mg-5 mcg (200 unit) (Calcium 600 + D(3)) 1 cap PO DAILY ezetimibe (Zetia) 10 mg PO DAILY fluticasone propionate 50 mcg/actuation 2 sprays intranasal DAILY ketoconazole 2% 1 appl topical 2XW levothyroxine 75 mcg PO QAM 90 days [mastectomy bra (left) As directed] multivitamin 1 tab PO DAILY prosthetics As directed raloxifene 60 mg orally Saccharomyces boulardii (Daily Probiotic (S. boulardii)) 250 mg PO DAILY HPI Comments Details: 74-year-old female patient, previous patient of Dr. Yuan returning for a yearly breast examination. She feels well and denies any new breast symptoms on either side. She has a history of left breast cancer diagnosed in 02/2002 and underwent a left simple mastectomy with sentinel node biopsy. This was followed by AC chemotherapy. She was initially placed on tamoxifen but later switched to Arimidex due to vaginal bleeding 1 year later. This was later switched to letrozole and Aromasin due to intolerable joint symptoms. Her last mammogram of 06/27/2023 revealed no mammographic evidence of malignancy (BI-RADS 1). She underwent a genetic testing which revealed no deleterious mutations and no variance of uncertain significance. She reports feeling well and denies any new or ongoing breast symptoms. [facility] Medical History Sacroiliac joint dysfunction of left side Breast density Adult general medical exam Chest tightness Shortness of breath Drug allergy, antibiotic Diverticular disease Irritable bowel syndrome Pulmonary nodule Insomnia Anxiety Family history of pancreatic cancer Family history of malignant neoplasm of endometrium Hypercholesterolemia History of left breast cancer Hypothyroidism Hypertension Surgical History History of cataract surgery History of colonoscopy History of tonsillectomy History of left mastectomy History of laparoscopy Family History Father History of cirrhosis Lung cancer Mother Pancreatic cancer CVD (cardiovascular disease) Hypertension Sister History of endometrial cancer Brother No problems noted. 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) Cognitive needs: No Hearing needs: No Vision needs: Yes Female Reproductive History Menstrual Age of Menarche: 14 Date of menopause: 06/25/02 Review of Systems Const All systems reviewed & are unremarkable except as noted in HPI and below Denies nipple discharge Skin/Breast Denies breast swelling, Denies breast skin changes, Denies breast pain, Denies breast mass and Denies nipple discharge Tyrese/Lymph Denies lymphadenopathy Physical Exam Vital Signs: BMI result Body Mass Index 23.9 Const General: no acute distress and well developed Nutritional Appearance: well nourished Orientation/consciousness: patient oriented x3 Limitations: no limitations Chest Other: Status post left mastectomy. Incision is clean and intact without subcutaneous masses or enlarged lymph nodes. No skin ulceration or discharge. Right breast reveals no skin change, nipple discharge, palpable mass, enlarged lymph node. No evidence of recurrence disease. Resp Effort & Inspection: normal respiratory effort Skin General skin exam: no rashes or lesions noted Neuro General: patient oriented x3 Extrem General: Yes no clubbing, cyanosis or edema Assessment & Plan Assessment & Plan (1) History of left breast cancer: Comment: Mammogram June 2023 Code(s): Z85.3 - Personal history of malignant neoplasm of breast Category: Social Hx Plan 74-year-old female patient returning for a routine annual breast cancer follow- up after a left breast mastectomy and axillary sentinel node biopsy in 02/2002. She feels well and denies any ongoing breast symptoms. Examination today reveals no suspicious findings and a well-healed mastectomy incision on the left side. Her most recent mammogram was in 06/27/2023 revealed no significant changes from the prior mammogram (BI-RADS 1). She is due for a follow-up mammogram in June 2024 and will return in 1 year for follow-up examination. Coding Level of Care Code Est Pt Level 3 (15822) Diagnoses History of left breast cancer Z85.3
== END 2024-02-19 09:08 | disposition home or self-care (01) ==
PROVIDERS: PCP Internal Medicine; Visit Provider Surgery
DX: Z85.3 Personal history of malignant neoplasm of breast (principal)
CPT/HCPCS: 99213

== ENCOUNTER → 2024-02-19 08:45 | Outpatient (BNVA) | payer MEDICARE, SELFPAY | PROVIDERS: PCP Internal Medicine; Visit Provider Surgery | DX: Z85.3 Personal history of malignant neoplasm of breast (principal); Z90.12 Acquired absence of left breast and nipple | CPT/HCPCS: 99212 ==

== ENCOUNTER 2024-04-02 07:00 | Outpatient (REF) | payer MEDICARE, SELFPAY ==
[2024-04-02 09:56] LABS: MANUAL DIFF FLAG NO
[2024-04-02 10:13] LABS: Basophils Absolute Auto 0.1 X10*3/uL (0.0-0.2); Eosinophils Absolute Auto 0.3 X10*3/uL (0.0-0.4); Eosinophils Percent Auto 3.3 % (0-4); Hematocrit 44.2 % (37.0-47.0); Hemoglobin 14.2 g/dl (12.0-16.0); Imm Gran Abs Auto 0.02 X10*3/uL (0.00-0.03); Imm Gran Pct Auto 0.3 % (0.0-0.4); Lymphocytes Absolute Auto 2.3 X10*3/uL (1.2-4.9); Lymphocytes Percent Auto 29.3 % (20-40); Mean Corpuscular HGB Conc 32.1 g/dl (31.0-35.0); Mean Corpuscular Volume 90.2 fL (80.0-98.0); Mean Platelet Volume 9.5 fL (9.4-12.3); Monocytes Absolute Auto 0.9 X10*3/uL (0.1-1.2); Monocytes Percent Auto 11.9 % (2-11); Neutrophils Absolute Auto 4.3 x10*3/uL (2.0-8.3); Neutrophils Percent Auto 54.2 % (45-73); Platelet Count 403 X10*3/uL (160-400); Red Cell Distribution Width 12.8 % (11.0-16.0); White Blood Count 7.8 X10*3/uL (4.8-10.8)
[2024-04-02 10:40] LABS: Alanine Aminotransferase 23 U/L (0-31); Albumin Level 4.3 g/dL (3.5-5.0); Alkaline Phosphatase 64 U/L (39-117); Anion Gap 12 (12-20); Aspartate Amino Transferase 24 U/L (5-31); Bilirubin Total 0.5 mg/dL (0.0-1.0); Blood Urea Nitrogen 13 mg/dL (9-16); Calcium 9.8 mg/dL (8.4-10.2); Carbon Dioxide 28 mmol/L (22-29); Chloride 105 mmol/L (96-108); Cholesterol 222 mg/dL (<200); Estimated Glomerular Filt Rate > 60; Free T4 (Free Thyroxine) 1.16 ng/dL (0.71-1.85); Glucose Random 95 mg/dL (60-115); HDL Cholesterol 69 mg/dL (>40); LDL Cholesterol Calculated 122 mg/dL (<100); Potassium 4.3 mmol/L (3.3-5.1); Sodium 141 mmol/L (135-145); Thyroid Stimulating Hormone 1.85 uIU/mL (0.32-4.0); Total Protein 7.3 g/dL (6.5-8.0); Triglycerides 155 mg/dL (<150); Vitamin D 25-OH Total 55.2 ng/mL (>30)
[2024-04-02 10:48] LABS: Folate 14.8 ng/mL (> or = 4.0); Vitamin B12 554 pg/mL (200-900)
== END 2024-04-02 07:01 | disposition home or self-care (01) ==
LOC: HO.HMGCLDS 07:00
PROVIDERS: PCP Internal Medicine; Visit Provider Internal Medicine
DX: E03.9 Hypothyroidism, unspecified (principal); E78.00 Pure hypercholesterolemia, unspecified
CPT/HCPCS: 36415; 80053; 80061; 82306; 82607; 82746; 84439; 84443; 85025

== ENCOUNTER 2024-04-24 13:22 | Outpatient (AMB) | payer MEDICARE, SELFPAY ==
--- NOTE | 2024-04-24 13:27 | A.OFFPC_ITS ---
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/Tender: Not Required per policy Accompanied by: Self / Same As Patient Allergies Bjpdzzg-QYX-PiN Reductase Inhibitor [VGEVQBV-AXH-ZNQ REDUCTASE INHIBITOR] Allergy (Mild, Verified 04/24/24 13:28) ACHY atorvastatin [From Lipitor] Allergy (Unknown, Verified 04/24/24 13:28) Muscle Pain ciprofloxacin [Cipro] Allergy (Unknown, Verified 04/24/24 13:28) Anaphylaxis metronidazole Allergy (Unknown, Verified 04/24/24 13:28) anaphylaxis rosuvastatin [From Crestor] Allergy (Unknown, Verified 04/24/24 13:28) Muscle Pain simvastatin Allergy (Unknown, Verified 04/24/24 13:28) Muscle Pain Sulfa (Sulfonamide Antibiotics) Allergy (Unknown, Verified 04/24/24 13:28) diarrhea sulfamethoxazole [From Bactrim] Allergy (Unknown, Verified 04/24/24 13:28) Unknown trimethoprim [From Bactrim] Allergy (Unknown, Verified 04/24/24 13:28) Unknown hydrochlorothiazide Adverse Reaction (Intermediate, Verified 04/24/24 13:28) myalgia lisinopril Adverse Reaction (Intermediate, Verified 04/24/24 13:28) Cough SEASONAL ALLERGIES Allergy (Intermediate, Uncoded 04/24/24 13:28) ITCHING Tobacco use date assessed: 04/24/24 Fall risk assessment: No Falls in past year Last assessed Fall Risk: 04/24/24 Dental Screening Dental Screen Date: 10/16/23 HPI Follow Up HPI Details 74-year-old female with irritable bowel syndrome osteopenia GERD hypercholesterolemia history of left breast cancer hypothyroidism hypertension last seen for wellness in 02/05/2024. Mammogram is up-to-date 07/14/2023 bone density was done in 06/13/2022. Review of the notes has seen gastroenterology in February 05 for the rectal pain diagnosis of irritable bowel syndrome with diarrhea [facility] Medical History Sacroiliac joint dysfunction of left side Breast density Adult general medical exam Chest tightness Shortness of breath Drug allergy, antibiotic Diverticular disease Irritable bowel syndrome Pulmonary nodule Insomnia Anxiety Family history of pancreatic cancer Family history of malignant neoplasm of endometrium Hypercholesterolemia History of left breast cancer Hypothyroidism Hypertension Surgical History History of cataract surgery History of colonoscopy History of tonsillectomy History of left mastectomy History of laparoscopy Family History Father History of cirrhosis Lung cancer Mother Pancreatic cancer CVD (cardiovascular disease) Hypertension Sister History of endometrial cancer Brother No problems noted. 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 How many drinks containing alcohol do you have on a typical day when you are drinking?: 1 or 2 3. How often do you have six or more drinks on one occasion?: Never Total Score: 0 FEDERICO-7 AMB Questionnaire FEDERICO-7 Date FEDERICO - 7 assessed: 10/16/23 Source: Developed by Drs. Abran Lizama, Emilee Philippe, Mansoor Rivas and colleagues, with an educational smith from [employer]. Physical exam (Primary Care) Vital Signs: Last Vital Signs Pulse 92 04/24/24 13:28 BP 130/70 04/24/24 13:28 Pulse Ox 95 04/24/24 13:28 Oxygen Delivery Method Room Air 04/24/24 13:28 BMI result Body Mass Index 23.6 Tobacco/Smoking Status: Tobacco use Status Tobacco use date assessed 04/24/24 04/24/24 13:33 Patient Tobacco Use Status Never used Tobacco 04/24/24 13:33 e-Cigarette/Vaping Use Never Used 04/24/24 13:33 Thrive Assessment: Date of Thrive Assessment Date Thrive assessed 10/16/23 04/24/24 13:33 Const General: alert; No acute distress Eyes Conjunctivae: conjunctivae normal Resp Auscultation: clear to auscultation bilaterally Cardio Rate: regular rate Rhythm: regular rhythm GI Inspection: Yes normal to inspection Extrem General: Yes normal to inspection and No edema Coding Level of Care Code Est Pt Level 4 (57630) Diagnoses Irritable bowel syndrome K58.9 Essential hypertension I10 Hypertension type: essential hypertension Acquired hypothyroidism E03.9 Hypothyroidism type: acquired History of left breast cancer Z85.3 Hypercholesterolemia E78.00 GERD (gastroesophageal reflux disease) K21.9 Assessment & Plan Assessment & Plan (1) Irritable bowel syndrome: Code(s): K58.9 - Irritable bowel syndrome, unspecified Category: Medical Plan: Patient follows up with Gastroenterology (2) Hypertension: Code(s): I10 - Essential (primary) hypertension Category: Medical Qualifiers: Hypertension type: essential hypertension Qualified Code(s): I10 - Essential (primary) hypertension Plan: Continue with blood pressure medication. Decrease salt intake and exercise on amlodipine 5 mg once a day (3) Hypothyroidism: Comment: History of Maia's Code(s): E03.9 - Hypothyroidism, unspecified Category: Medical Qualifiers: Hypothyroidism type: acquired Qualified Code(s): E03.9 - Hypothyroidism, unspecified Plan: Continue with thyroid medication (4) History of left breast cancer: Comment: Mammogram June 2023 Code(s): Z85.3 - Personal history of malignant neoplasm of breast Category: Social Hx Plan: Patient is up-to-date with mammogram and follows up with the surgeon (5) Hypercholesterolemia: Code(s): E78.00 - Pure hypercholesterolemia, unspecified Category: Medical Plan: Avoid fried foods, chicken skin, eggs, butter margarine, pastries and meat. Be it pork or beef they have a lot of cholesterol LDL goal of less than 130 and triglyceride of less than 150 on Zetia (6) GERD (gastroesophageal reflux disease): Code(s): K21.9 - Gastro-esophageal reflux disease without esophagitis Category: Medical Plan: Avoid the foods that causes that usually spicy foods, tomato products, juices, coffee, soda and foods that your sensitive to. After eating do not lie down, allow 3-4 hours before in lie down. And keep the head of bed above 30 degrees to avoid the acid from going up.
[2024-04-24 13:28] VITALS: BP 130/70; PULSE 92; O2SAT 95; BMI 23.6
== END 2024-04-24 14:02 | disposition home or self-care (01) ==
LOC: HO.HMCH 13:22
PROVIDERS: PCP Internal Medicine; Visit Provider Internal Medicine
DX: K58.9 Irritable bowel syndrome, unspecified (principal); I10 Essential (primary) hypertension; E03.9 Hypothyroidism, unspecified; Z85.3 Personal history of malignant neoplasm of breast; E78.00 Pure hypercholesterolemia, unspecified; K21.9 Gastro-esophageal reflux disease without esophagitis

== ENCOUNTER → 2024-04-24 13:22 | Outpatient (BNVA) | payer MEDICARE, SELFPAY | PROVIDERS: PCP Internal Medicine; Visit Provider Internal Medicine | DX: K58.9 Irritable bowel syndrome, unspecified (principal); I10 Essential (primary) hypertension; E03.9 Hypothyroidism, unspecified; E78.00 Pure hypercholesterolemia, unspecified; K21.9 Gastro-esophageal reflux disease without esophagitis; Z85.3 Personal history of malignant neoplasm of breast | CPT/HCPCS: 99212 ==

== ENCOUNTER 2024-07-02 09:02 | Outpatient (REF) | payer MEDICARE, SELFPAY ==
--- NOTE | ~2024-07-02 | MM_ITS ---
EXAMINATION: MM SCREENING DIGITAL BREAST TOMOSYNTHESIS, RIGHT CLINICAL INFORMATION: Screening. Asymptomatic. Left mastectomy. COMPARISON: Mammography: This study is compared with prior exams dating back to TECHNIQUE: Digital breast tomosynthesis is performed in both the craniocaudal and mediolateral oblique views along with computer-aided detection (CAD). Synthesized 2D images are generated from the tomosynthesis. FINDINGS: The breasts are heterogeneously dense, which may obscure small masses (ACR BI-RADS breast composition Category c). There are no significant masses, abnormal calcifications, or other abnormalities. MM/MM tomosynthesis screening RT IMPRESSION: No mammographic evidence of malignancy. ASSESSMENT: BI-RADS BI-RADS 1 - Negative RECOMMENDATION: Routine annual mammography screening. 1 year F/U This examination should not preclude the clinical evaluation of a suspicious palpable abnormality. This patient's information was entered into a reminder system with a target due date for their next mammogram. Electronically signed by: Willa Padilla DO 07/08/2024 04:31 PM JUSTUS INIGUEZ
--- OUTSIDE RECORDS SUMMARY | 2024-07-02 09:04 | XMS_ITS ---
Author Organization [facility] Address [address] [place] [phone] Care Team Providers Care Scarfer Operator Name Role Phone Po Laurence BARNEY Primary Care Provider Abran Liang [phone] REASON FOR VISIT rectal pain PROBLEMS Problem Type ICD Code Onset Dates Problem Status W/U Status Risk SNOMED Code Notes Problem Diarrhea (R19.7) Active confirmed Diarrhea (16667983) Encounters Encounter Location Date Provider Diagnosis [facility] [address] [place] [phone] 12/19/2023 Abran Jefferson Diarrhea R19.7 ASSESSMENTS Encounter Date Diagnosis Assessment Notes Treatment Notes Treatment Clinical Notes 12/19/2023 Diarrhea (ICD-10 - R19.7) PLAN OF TREATMENT Pending Test Test Name Order Date STOOL WBC 12/19/2023 C DIFFICILE RFLX PCR 12/19/2023 Calprotectin, Fecal 12/19/2023 GI PANEL 12/19/2023
--- OUTSIDE RECORDS SUMMARY | 2024-07-02 09:05 | XMS_ITS ---
Author Organization [facility] Address [address] [place] [address] Care Team Providers Care Rail Signal Mechanic Name Role Phone Laurence Gurrola MD Primary Care Provider Abran Liang [phone] ALLERGIES Allergen (clinical drug ingredient) Drug/Non Drug Allergy documented on EMR Reaction Allergy Type Onset Date Status Substance with sulfonamide structure and antibacterial mechanism of action (substance) Sulfa Antibiotics Unknown Drug Allergy Active lisinopril Lisinopril Unknown Drug Allergy Activ e Penicillin Unknown Drug Allergy Active ciprofloxacin Cipro Unknown Drug Allergy Act ritu Substance with 9-tnajaio-1-methylgluta ryl-coenzyme A reductase inhibitor mechanism of action (substance) Statins (uncoded) Unknown Allergy Active metronidazole Metronidazole Unknown Drug Allergy Active REASON FOR VISIT Patient presents today for ibs, diarrhea but ok at moment MEDICATIONS Medication SIG (Take, Route, Frequency, Duration) Notes Start Date End Date Status Dicyclomine HCl 10 MG TAKE 1 TO 2 CAPSUL ES BY MOUTH BEFORE MEALS NEEDED Oral for 30 Not-Taking Esomeprazole Magnesium 20 MG TAKE 1 CAPSULE BY MOUTH EVERY DAY Oral for 30 Not-Taking Diphenoxylate-Atropine 2.5-0.025 MG Oral for 7 Active Benefiber - as directed Orally a t night Active amLODIPine Besylate 5 MG TAKE 1 TABLET B Y MOUTH EVERY DAY Oral for 90 Active Probiotic - as directed Orally Active Multivitamin Adult - as directed Orally Active Ketoconazole 2 % USE TO SHAMPOO ONCE A WEEK FOR 30 DAYS External for 30 Active Ezetimibe 10 MG TAKE 1 TABLET BY ELIO TH EVERY DAY Oral for 90 Active Flonase Allergy Relief 50 MCG/ACT 1 spray in each nostril Nasally Once a day Active Raloxifene HCl 60 MG TAKE 1 TABLET BY MO UTH EVERY DAY Oral for 90 Active Levothyroxine Sodium 75 MCG TAKE 1 TABLET BY MOUTH EVERY DAY IN THE MORNING ON EMPTY STOMACH *SEPARATE FROM RALOXEFINE BY 12 HRS Oral for 90 Active Azelaic Acid 15 % 1 application Externally Twice a day Active Calcium + Vitamin D3 Active Hydrocortisone Acetate 25 MG 1 application Rectal as directed Active Omeprazole 20 MG 1 capsule 30 minutes before morning meal Orally Once a day/ prn Active PROBLEMS Problem Type ICD Code Onset Dates Problem Status W/U Status Risk SNOMED Code Notes Problem Other irritable bowel syndrome (K58.8) Active confirmed 64989687 VITAL SIGNS BMI 22.66 kg/m2 01/30/2023 Blood pressure systolic 000 mm Hg 01/31/20 23 Blood pressure diastolic 00 mm Hg 023 Height 64 in 01/30/2023 Temperature 97.7 degrees Fahrenheit 01/31/20 23 Weight 132 lbs 01/30/2023 Encounters Encounter Location Date Provider Diagnosis [facility] [address] [facility] [address] [facility] [address] [place] [address] 01/30/2023 Abran Jefferson Other irritable bowel syndrome K58.8 ASSESSMENTS Encounter Date Diagnosis Assessment Notes Treatment Notes Treatment Clinical Notes 01/30/2023 Other irritable bowel syndrome (ICD-10 - K58.8) Restart Metamcul/Citrucel fiber with a lot of water, fruits, and vegetables for the irritable bowel syndrome and any constipation. Repeat colonoscopy in 2028 PLAN OF TREATMENT Treatment Notes Assessment Notes Other irritable bowel syndrome Restart Metamcul/Citrucel fiber with a lot of water, fruits, and vegetables for the irritable bowel syndrome and any constipation. Repeat colonoscopy in 2028 Next Appt Details Follow Up: prn, Reason: Progress Notes * Examination Category Sub-Category Detail Notes General Examination GENERAL APPEARANCE: pleasant , well nourished, well developed, in no acute distress EYES: sclera non-icteric NECK/THYROID: no cervical lymphade nopathy, neck supple HEART: S1, S2 normal LUNGS: clear to auscultatio n bilaterally ABDOMEN: normal bowel sounds, no guarding or rigidity, no hepatosplenomegaly, no masses palpable, soft, nontender, nondistended. NEUROLOGIC: alert and oriented SKIN: nonjaundiced, no spi brittani angiomata. EXTREMITIES: no edema ORAL CAVITY: mucosa moist
--- OUTSIDE RECORDS SUMMARY | 2024-07-02 09:05 | XMS_ITS | Patient Health Record ---
Author Organization [facility] Address [address] [place] [address] Care Team Providers Care Metal Wire Coating Operator Name Role Phone Laurence Gurrola MD Primary Care Provider Abran Liang [phone] ALLERGIES Allergen (clinical drug ingredient) Drug/Non Drug Allergy documented on EMR Reaction Allergy Type Onset Date Status Substance with sulfonamide structure and antibacterial mechanism of action (substance) Sulfa Antibiotics Unknown Drug Allergy Active lisinopril Lisinopril Unknown Drug Allergy Activ e Penicillin Unknown Drug Allergy Active ciprofloxacin Cipro Unknown Drug Allergy Act ritu Substance with 8-zmvqokk-1-methylgluta ryl-coenzyme A reductase inhibitor mechanism of action (substance) Statins (uncoded) Unknown Allergy Active metronidazole Metronidazole Unknown Drug Allergy Active REASON FOR REFERRAL No Information MEDICATIONS Medication SIG (Take, Route, Frequency, Duration) Notes Start Date End Date Status Calcium + Vitamin D3 Active Raloxifene HCl 60 MG TAKE 1 TABLET BY MO UTH EVERY DAY Oral for 90 Active Dicyclomine HCl 10 MG TAKE 1 TO 2 CAPSUL ES BY MOUTH BEFORE MEALS NEEDED Oral for 30 Not-Taking Azelaic Acid 15 % 1 application Externally Twice a day Active Esomeprazole Magnesium 20 MG TAKE 1 CAPSULE BY MOUTH EVERY DAY Oral for 30 Not-Taking Multivitamin Adult - as directed Orally Active amLODIPine Besylate 5 MG TAKE 1 TABLET B Y MOUTH EVERY DAY Oral for 90 Active Ketoconazole 2 % USE TO SHAMPOO ONCE A WEEK FOR 30 DAYS External for 30 Active Probiotic - as directed Orally Active Ezetimibe 10 MG TAKE 1 TABLET BY ELIO TH EVERY DAY Oral for 90 Active Flonase Allergy Relief 50 MCG/ACT 1 spray in each nostril Nasally Once a day Active Levothyroxine Sodium 75 MCG TAKE 1 TABLET BY MOUTH EVERY DAY IN THE MORNING ON EMPTY STOMACH *SEPARATE FROM RALOXEFINE BY 12 HRS Oral for 90 Active IMMUNIZATIONS Vaccine Route Administration Date Status Comme nts Influenza Unknown 03/25/2018 Administered Influenza Unknown 03/25/2019 Administered SOCIAL HISTORY Sex Assigned At : Social History Observation Description Sex Assigned At Unknown PROBLEMS Problem Type ICD Code Onset Dates Problem Status W/U Status Risk SNOMED Code Notes Problem Encounter for screening for malignant neoplasm of colon (Z12.11) Active confirmed Screening for malignant neoplasm of colon (389246573) Problem Diarrhea (R19.7) Active confirmed Diarr hea (59708009) Problem Weight loss (R63.4) Active confirmed 20765336 Problem Irritable bowel syndrome with diarrhea (K58.0) Active confirmed Irritable bowel syndrome with diarrhea (949938613) Problem Rectal pain (K62.89) Active confirmed Rectal pain (86719326) Problem Diarrhea, unspecified type (R19.7) Active confirmed 38412286 Problem Other irritable bowel syndrome (K58.8) Active confirmed 03010959 Problem Irritable bowel syndrome with both constipation and diarrhea (K58.2) Active confirmed 37168845 Problem Change in bowel function (R19.8) Active confirmed 41236020 VITAL SIGNS Blood pressure diastolic 00 mm Hg 02/06/2024 Height 64 in 02/06/2024 Blood pressure systolic 00 mm Hg 02/06/2024 Weight 135 lbs 02/06/2024 BMI 23.17 kg/m2 02/06/2024 Encounters Encounter Location Date Provider Diagnosis [facility] [address] [place] [phone] 02/06/2024 Abran Jefferson Diarrhea, unspecifie d type R19.7 ; Irritable bowel syndrome with diarrhea K58.0 ; Encounter for screening for malignant neoplasm of colon Z12.11 and Rectal pain K62.89 [facility] [address] [facility] [address] [place] [phone] 12/19/2023 Abran Jefferson Diarrhea R19.7 ASSESSMENTS Encounter Date Diagnosis Assessment Notes Treatment Notes Treatment Clinical Notes 02/06/2024 Irritable bowel syndrome with diarrhea (ICD-10 - K58.0) 02/06/2024 Diarrhea, unspecified type (ICD-10 - R19.7) Use Imodium as needed daily to help and/or prevent diarrhea Use the Preparation H cream for rectal pain as needed Increase the Citrucel to try to decrease the diarrhea 12/19/2023 Diarrhea (ICD-10 - R19.7) 02/06/2024 Encounter for screening for malignant neoplasm of colon (ICD-10 - Z12.11) Repeat colonoscopy in 202802/06/2024 Rectal pain (ICD-10 - K62.89) PLAN OF TREATMENT Pending Test Test Name Order Date STOOL WBC 12/19/2023 C DIFFICILE RFLX PCR 12/19/2023 Calprotectin, Fecal 12/19/2023 GI PANEL 12/19/2023 Future Test Test Name Order Date COLONOSCOPY 11/07/2012 COLONOSCOPY 01/07/2019 Insurance Providers Payer Name Payer Address Payer Phone Subscriber Number Group Number Insured Name Patient Relationship to Insured Coverage Start Date Coverage End Date MEDICARE OF [place] [address] [place] [address] [id number] YARITZA AVINA Self - patient is the insured [employer] ATT[employer] CLAIMS [address] [place] [phone] [id number] YARITZA AVINA Self - patient is the insured MEDICAL (GENERAL) HISTORY Medical History History ICD Code Colon and EGD 05-11-2003--co lonoscopy was normal other than occasional diverticulosis and small internal hemorrhoids, and the upper endoscopy was normal as well, including duodenal biopsies Hypothyroid Elevated cholesterol Denies UT,DM,CVA,Lung disease,renal dise ase Breast cancer as below Seasonal allergies Negative screening colonoscopy in 3 except diverticulosis IBS--neg celiac disease labs in 12/2018 Neg. colonoscopy in 12/2018-- no polyps, no colitis, bx neg for microscopic colitis Diverticulitis in 10/2018---u ncomplicated--sigmoid colon on CT scan in 10/2019---3rd episode Hypertension Surgical History Surgery Date(Month/Year) Surgery for breast cancer-le ft mastectomy 2001-XRT and Chemo--sees Dr. Damon 2001 Laparoscopy for lysis of adhesions
== END 2024-07-02 09:03 | disposition home or self-care (01) ==
LOC: HO.MAMMO 09:02
PROVIDERS: PCP Internal Medicine; Visit Provider Internal Medicine
DX: Z12.31 Encounter for screening mammogram for malignant neoplasm of breast (principal)
CPT/HCPCS: 77063; 77067

== ENCOUNTER → 2024-07-02 09:15 | Outpatient (BNV) | payer MEDICARE, SELFPAY | PROVIDERS: PCP Internal Medicine; Visit Provider Internal Medicine | DX: Z12.31 Encounter for screening mammogram for malignant neoplasm of breast (principal) | CPT/HCPCS: 77063; 77067 ==

== ENCOUNTER 2024-08-07 09:10 | Outpatient (REF) | payer MEDICARE, SELFPAY ==
--- OUTSIDE RECORDS SUMMARY | 2024-08-07 10:36 | XMS_ITS ---
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 Name Role Phone Po Laurence BARNEY Primary Care Provider Abran Liang [phone] REASON FOR VISIT rectal pain PROBLEMS Problem Type ICD Code Onset Dates Problem Status W/U Status Risk SNOMED Code Notes Problem Diarrhea (R19.7) Active confirmed Diarrhea (39848638) Encounters Encounter Location Date Provider Diagnosis [facility] [address] [place] [phone] 12/19/2023 Abran Jefferson Diarrhea R19.7 ASSESSMENTS Encounter Date Diagnosis Assessment Notes Treatment Notes Treatment Clinical Notes 12/19/2023 Diarrhea (ICD-10 - R19.7) PLAN OF TREATMENT Pending Test Test Name Order Date STOOL WBC 12/19/2023 C DIFFICILE RFLX PCR 12/19/2023 Calprotectin, Fecal 12/19/2023 GI PANEL 12/19/2023
--- OUTSIDE RECORDS SUMMARY | 2024-08-07 10:37 | XMS_ITS ---
Author Organization [facility] Address [address] [place] [address] Care Team Providers Care Manager Operational Name Role Phone Laurence Gurrola MD Primary Care Provider Abran Liang [phone] ALLERGIES Allergen (clinical drug ingredient) Drug/Non Drug Allergy documented on EMR Reaction Allergy Type Onset Date Status Substance with sulfonamide structure and antibacterial mechanism of action (substance) Sulfa Antibiotics Unknown Drug Allergy Active lisinopril Lisinopril Unknown Drug Allergy Activ e Penicillin Unknown Drug Allergy Active ciprofloxacin Cipro Unknown Drug Allergy Act ritu Substance with 7-cixknhm-3-methylgluta ryl-coenzyme A reductase inhibitor mechanism of action (substance) Statins (uncoded) Unknown Allergy Active metronidazole Metronidazole Unknown Drug Allergy Active REASON FOR VISIT Patient presents today for a rectal pain MEDICATIONS Medication SIG (Take, Route, Frequency, Duration) [...] Active Probiotic - as directed Orally Active Raloxifene HCl 60 MG TAKE 1 TABLET BY MO UTH EVERY DAY Oral for 90 Active Ketoconazole [...] BY 12 HRS Oral for 90 Active Calcium + Vitamin D3 Active Azelaic Acid 15 % 1 application Externally Twice a day Active PROBLEMS Problem Type ICD Code Onset Dates Problem Status W/U Status Risk SNOMED Code Notes Problem Irritable bowel syndrome with diarrhea (K58.0) Active confirmed Irritable bowel syndrome with diarrhea (336148070) Problem Encounter for screening for malignant neoplasm of colon (Z12.11) Active confirmed Screening for malignant neoplasm of colon (948816460) Problem Rectal pain (K62.89) Active confirmed Rectal pain (53176492) VITAL SIGNS BMI 23.17 kg/m2 02/06/2024 Blood pressure systolic 00 mm Hg 02/06/20 24 Blood pressure diastolic 00 mm Hg 024 Height 64 in 02/06/2024 Weight 135 lbs 02/06/2024 Encounters Encounter Location Date Provider Diagnosis [facility] [address] [place] [address] 02/06/2024 Abran Jefferson Diarrhea, unspecifie d type R19.7 ; Irritable bowel syndrome with diarrhea K58.0 ; Encounter for screening for malignant neoplasm of colon Z12.11 and Rectal pain K62.89 ASSESSMENTS Encounter Date Diagnosis Assessment Notes Treatment Notes Treatment Clinical Notes 02/06/2024 Diarrhea, unspecified type (ICD-10 - R19.7) Use Imodium as needed daily to help and/or prevent diarrhea Use the Preparation H cream for rectal pain as needed Increase the Citrucel to try to decrease the diarrhea 02/06/2024 Irritable bowel syndrome with diarrhea (ICD-10 - K58.0) 02/06/2024 Encounter for screening for malignant neoplasm of colon (ICD-10 - Z12.11) Repeat colonoscopy in 202802/06/2024 Rectal pain (ICD-10 - K62.89) PLAN OF TREATMENT Treatment Notes Assessment Notes Diarrhea, unspecified type Use Imodium as needed daily to help and/or prevent diarrhea Use the Preparation H cream for rectal pain as needed Increase the Citrucel to try to decrease the diarrhea Encounter for screening for malignant neoplasm of colon Repeat colonoscopy in 2028 Next Appt Details [...]
--- OUTSIDE RECORDS SUMMARY | 2024-08-07 10:37 | XMS_ITS | Patient Health Record ---
Author Organization [facility] Address [address] [place] [address] Care Team Providers Care Director Payment Name Role Phone Laurence Gurrola MD Primary Care Provider Abran Liang [phone] ALLERGIES Allergen (clinical drug ingredient) Drug/Non Drug Allergy documented on EMR Reaction Allergy Type Onset Date Status Substance with sulfonamide structure and antibacterial mechanism of action (substance) Sulfa Antibiotics Unknown Drug Allergy Active lisinopril Lisinopril Unknown Drug Allergy Activ e Penicillin Unknown Drug Allergy Active ciprofloxacin Cipro Unknown Drug Allergy Act ritu Substance with 7-snrfkuq-2-methylgluta ryl-coenzyme A reductase inhibitor mechanism of action [...] confirmed Screening for malignant neoplasm of colon (119874306) Problem Diarrhea (R19.7) Active confirmed Diarr hea (98392006) Problem Weight loss (R63.4) Active confirmed 76283341 Problem Irritable bowel syndrome with diarrhea (K58.0) Active confirmed Irritable bowel syndrome with diarrhea (687279885) Problem Rectal pain (K62.89) Active confirmed Rectal pain (65815040) Problem Diarrhea, unspecified type (R19.7) Active confirmed 18102679 Problem Other irritable bowel syndrome (K58.8) Active confirmed 00165036 Problem Irritable bowel syndrome with both constipation and diarrhea (K58.2) Active confirmed 33859479 Problem Change in bowel function (R19.8) Active confirmed 41799800 VITAL SIGNS Blood pressure diastolic 00 mm Hg 02/06/2024 Height 64 in 02/06/2024 Blood pressure systolic 00 mm Hg 02/06/2024 Weight 135 lbs 02/06/2024 BMI 23.17 kg/m2 02/06/2024 Encounters Encounter Location Date Provider Diagnosis [facility] [address] [place] [phone] 02/06/2024 Abran Jefferson Diarrhea, unspecifie d type R19.7 ; Irritable bowel syndrome with diarrhea K58.0 ; Encounter for screening for malignant neoplasm of colon Z12.11 and Rectal pain K62.89 [facility] [address] [facility] [address] [place] [phone] 12/19/2023 Abran Jefferson Diarrhea R19.7 ASSESSMENTS Encounter [...] Date MEDICARE OF [place] [address] [facility] [place] [address] [phone] [id number] YARITZA AVINA Self - patient is the insured [employer] CLAIMS [address] [place] [address] [id number] YARITZA AVINA Self - patient is the insured MEDICAL (GENERAL) HISTORY Medical History History ICD Code Colon and EGD 05-11-2003--co lonoscopy was normal other than occasional diverticulosis and small internal hemorrhoids, and the upper endoscopy was normal as well, including duodenal biopsies Hypothyroid Elevated cholesterol Denies AL,DM,CVA,Lung disease,renal dise ase Breast cancer as below [...]
[2024-08-07 14:19] LABS: Influenza A PCR NEGATIVE (Negative); Influenza B PCR NEGATIVE (Negative); Resp Syncy Virus RNA Qual PCR NEGATIVE (Negative); SARS COV2 PCR INHOUSE POSITIVE (Negative)
== END 2024-08-07 09:11 | disposition home or self-care (01) ==
LOC: HO.LAB 09:10
PROVIDERS: PCP Internal Medicine; Visit Provider Nurse Practitioner Family
DX: J06.9 Acute upper respiratory infection, unspecified (principal)
CPT/HCPCS: 0241U; 99212

== ENCOUNTER 2024-08-07 09:10 | Outpatient (AMB) | payer MEDICARE, SELFPAY ==
[2024-08-07 09:28] VITALS: BP 120/82; PULSE 98; TEMP 36.8; O2SAT 99
--- NOTE | 2024-08-07 09:28 | AM.OFFWIN_ITS ---
Intake Vital Signs 08/07/24 09:28 Weight 132 lb BP 120/82 Blood Pressure Location Rt brachial Position Sitting Pulse 98 Pulse Source Pulse Oximeter Temp 98.2 F Temp Source Oral Pulse Oximetry (%) 99 Oxygen Delivery Method Room Air Intake Visit Reasons: EP cough, congestion, diarrhea, body aches Intake Note: Patient here for cough, congestion, body aches and diarrhea that has been present on and off since June. Patient Tobacco Use Status: Never used Tobacco Allergies Gjqwmpj-KVW-QiI Reductase Inhibitor [MMFZMHW-RIW-VTI REDUCTASE INHIBITOR] Allergy (Mild, Verified 08/07/24 09:29) ACHY atorvastatin [From Lipitor] Allergy (Unknown, Verified 08/07/24 09:29) Muscle Pain ciprofloxacin [Cipro] Allergy (Unknown, Verified 08/07/24 09:29) Anaphylaxis metronidazole Allergy (Unknown, Verified 08/07/24 09:29) anaphylaxis rosuvastatin [From Crestor] Allergy (Unknown, Verified 08/07/24 09:29) Muscle Pain simvastatin Allergy (Unknown, Verified 08/07/24 09:29) Muscle Pain Sulfa (Sulfonamide Antibiotics) Allergy (Unknown, Verified 08/07/24 09:29) diarrhea sulfamethoxazole [From Bactrim] Allergy (Unknown, Verified 08/07/24 09:29) Unknown trimethoprim [From Bactrim] Allergy (Unknown, Verified 08/07/24 09:29) Unknown hydrochlorothiazide Adverse Reaction (Intermediate, Verified 08/07/24 09:29) myalgia lisinopril Adverse Reaction (Intermediate, Verified 08/07/24 09:29) Cough SEASONAL ALLERGIES Allergy (Intermediate, Uncoded 08/07/24 09:29) ITCHING Do you need a note to return to daycare/school/sports/work: No HPI HPI Comments History of Present Illness Details 74 y/o female patient who presents to [facility] in clinic with c/o URI symptoms. Reports cough, chest congestion, diarrhea and body aches since [facility] Medical History (Updated 08/07/24 @ 09:56 by Clarice Washington NP) Acute respiratory disease Sacroiliac joint dysfunction of left side Breast density Adult general medical exam Chest tightness Shortness of breath Drug allergy, antibiotic Diverticular disease Irritable bowel syndrome Pulmonary nodule Insomnia Anxiety Family history of pancreatic cancer Family history of malignant neoplasm of endometrium Hypercholesterolemia History of left breast cancer Hypothyroidism Hypertension Surgical History History of cataract surgery History of colonoscopy History of tonsillectomy History of left mastectomy History of laparoscopy Family History Father History of cirrhosis Lung cancer Mother Pancreatic cancer CVD (cardiovascular disease) Hypertension Sister History of endometrial cancer Brother No problems noted. 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) Cognitive needs: No Hearing needs: No Vision needs: Yes Female Reproductive History Menstrual Age of Menarche: 14 Date of menopause: 06/25/02 Review of Systems Const All systems reviewed & are unremarkable except as noted in HPI and below Physical Exam Vital Signs: Last Vital Signs Temp 98.2 F 08/07/24 09:28 Pulse 98 08/07/24 09:28 BP 120/82 08/07/24 09:28 Pulse Ox 99 08/07/24 09:28 Oxygen Delivery Method Room Air 08/07/24 09:28 Const General: comfortable Orientation/consciousness: patient oriented x3 HEENT Head: Yes normocephalic Ears: external ears normal and TM abnormal with fluid behind the TM General nose exam: Abnormal mucous membranes and turbinates present boggy Face and sinus: Yes sinuses nontender Mouth: moist mucous membranes Resp Effort & Inspection: normal respiratory effort and able to speak in complete sentences Auscultation: clear to auscultation bilaterally, no crackles, no rales, no rhonchi and no wheezes Cardio Heart sounds: S1 normal heart sound present and S2 normal heart sound present Neuro General: patient oriented x3 Assessment & Plan Assessment & Plan (1) Acute respiratory disease: Code(s): J06.9 - Acute upper respiratory infection, unspecified Plan: Ordered SARs Acetaminophen for pain relief Rest and hydrate well Orders: Orders SARS-CoV2/FLU/RSV Today J06.9 - Acute upper respiratory infection, unspecified Medications: New dextromethorphan polistirex ER (Delsym 12 hour) 10 mL PO Q12H 89 mL 0RF cough J06.9 - Acute upper respiratory infection, unspecified cetirizine (Zyrtec) 10 mg PO DAILY 30 tabs 0RF J06.9 - Acute upper respiratory infection, unspecified Coding Level of Care Code Est Pt Level 4 (27919) Diagnoses Acute respiratory disease J06.9 Time Spent (min) 20
== END 2024-08-07 10:12 | disposition home or self-care (01) ==
PROVIDERS: PCP Internal Medicine; Visit Provider Nurse Practitioner Family
DX: J06.9 Acute upper respiratory infection, unspecified (principal)

== ENCOUNTER 2024-10-09 10:32 | Outpatient (AMB) | payer MEDICARE, SELFPAY ==
[2024-10-09 10:47] VITALS: BP 140/76; PULSE 90; RESP 20; TEMP 36.4; O2SAT 96; BMI 23.5
--- NOTE | 2024-10-09 10:47 | MHC.PC.OV ---
Vital Signs 10/09/24 10:47 10/09/24 10:55 Height 5 ft 3 in Weight 132 lb 6.4 oz BMI 23.5 BP 140/76 H 114/72 Blood Pressure Location Rt brachial Lt brachial Position Sitting Sitting Respiration 20 Pulse 90 Pulse Source Pulse Oximeter Temp 97.5 F Temp Source Oral Pulse Oximetry (%) 96 Oxygen Delivery Method Room Air Intake Visit Reasons: dull pain on her chest Orthopedic Coder Required: No Accompanied by: Self / Same As Patient Allergies Pmucktp-FBG-NeS Reductase Inhibitor [RKURSRY-GYS-RIY REDUCTASE INHIBITOR] Allergy (Mild, Verified 10/09/24 11:27) ACHY atorvastatin [From Lipitor] Allergy (Unknown, Verified 10/09/24 11:27) Muscle Pain ciprofloxacin [Cipro] Allergy (Unknown, Verified 10/09/24 11:27) Anaphylaxis metronidazole Allergy (Unknown, Verified 10/09/24 11:27) anaphylaxis rosuvastatin [From Crestor] Allergy (Unknown, Verified 10/09/24 11:27) Muscle Pain simvastatin Allergy (Unknown, Verified 10/09/24 11:27) Muscle Pain Sulfa (Sulfonamide Antibiotics) Allergy (Unknown, Verified 10/09/24 11:27) diarrhea sulfamethoxazole [From Bactrim] Allergy (Unknown, Verified 10/09/24 11:27) Unknown trimethoprim [From Bactrim] Allergy (Unknown, Verified 10/09/24 11:27) Unknown hydrochlorothiazide Adverse Reaction (Intermediate, Verified 10/09/24 11:27) myalgia lisinopril Adverse Reaction (Intermediate, Verified 10/09/24 11:27) Cough SEASONAL ALLERGIES Allergy (Intermediate, Uncoded 10/09/24 11:27) ITCHING Medication List - Last Reconciled 10/09/24 by AISHA Vernon amlodipine 5 mg PO DAILY calcium carbonate-vitamin D3 600 mg-5 mcg (200 unit) (Calcium 600 + D(3)) 1 cap PO DAILY cetirizine 10 mg PO DAILY ezetimibe (Zetia) 10 mg PO DAILY fluticasone propionate 50 mcg/actuation 2 sprays intranasal DAILY ketoconazole 2% 1 appl topical 2XW levothyroxine 75 mcg PO QAM 90 days magnesium 250 mg PO DAILY [mastectomy bra (left) As directed] multivitamin 1 tab PO DAILY prosthetics As directed raloxifene 60 mg orally Saccharomyces boulardii (Daily Probiotic (S. boulardii)) 250 mg PO DAILY Tobacco use date assessed: 10/09/24 Fall risk assessment: No Falls in past year Last assessed Fall Risk: 10/09/24 Dental Screening Dental Screen Date: 10/09/24 Did you have a dental visit in the last 12 months?: Yes Did you have a dental problem in the last 6 months where you did not have access to dental care?: No Was dental information given to patient?: Patient has dentist HPI dull pain on her chest HPI Details The patient is a 74-year-old female presenting with chest pain. The pain is localized to the left side of the chest, described as primarily dull with intermittent sharp episodes, associated with periods of rest, particularly when lying down. This symptomatology began following a COVID-19 infection in early July, during which severe coughing was noted, possibly exacerbating the discomfort. The pain is intermittent, most noticeable in the evenings when the patient is reclined and after meals. There is an association with dyspeptic symptoms such as gas and indigestion, although nausea, vomiting, or exercise-induced discomfort is absent. There is no reported radiation typical of cardiac causes, and the pain is not reproducible on palpation. The patient's medical history is pertinent for hyperlipidemia managed with ezetimibe due to statin intolerance, carpal tunnel syndrome characterized by hand numbness, and previous episodes of diverticulitis. A family history of pancreatic cancer has raised concern for malignancy, given some similarities in presentation. Current laboratory findings indicate elevated triglycerides and cholesterol, managed pharmacologically. The management plan will explore potential gastroesophageal contributors, considering the correlation with posture and meal timing. [facility] Medical History (Updated 10/12/24 @ 12:31 by AISHA Vernon) Acute respiratory disease Sacroiliac joint dysfunction of left side Breast density Adult general medical exam Chest tightness Shortness of breath Drug allergy, antibiotic Diverticular disease Irritable bowel syndrome Pulmonary nodule Insomnia Anxiety Family history of pancreatic cancer Family history of malignant neoplasm of endometrium Hypercholesterolemia History of left breast cancer Hypothyroidism Hypertension Surgical History History of cataract surgery History of colonoscopy History of tonsillectomy History of left mastectomy History of laparoscopy Family History Father History of cirrhosis Lung cancer Mother Pancreatic cancer CVD (cardiovascular disease) Hypertension Sister History of endometrial cancer Brother No problems noted. 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) Cognitive needs: No Hearing needs: No Vision needs: Yes (Reading glasses) Female Reproductive History Menstrual Age of Menarche: 14 Date of menopause: 06/25/02 Questionnaire Thrive Questionnaire Date Thrive assessed: 10/09/24 I am a: Patient What is your living situation today?: I have a steady place to live Within the past 12 months, did the food you bought not last and you didn't have the money to get more?: Never true Within the past 12 months, did you worry whether your food would run out before you got money to buy more?: Never true Do you have trouble paying for medicines?: No Do you have trouble getting transportation to medical appointments?: No Do you have trouble paying your heating and electricity bill?: No Do you have trouble taking care of your child, family member or friend?: No Do you have trouble with day-to-day activities such as bathing, preparing meals, shopping, managing finances, etc.?: No Are you currently unemployed and looking for a job?: No Are you interested in more education?: No Please select the resources that you would like help with: None Currently or been in a relationship where the following occur: No concerns reported THRIVE Score: 0 AUDIT C Alcohol Use Questionnaire (AUDIT-C) 1. How often do you have a drink containing alcohol?: Monthly or less (Rarely) 2. How many drinks containing alcohol do you have on a typical day when you are drinking?: 1 or 2 3. How often do you have six or more drinks on one occasion?: Never Total Score: 1 Score Reviewed/Action Taken: No FEDERICO-7 AMB Questionnaire FEDERICO-7 Date FEDERICO - 7 assessed: 10/16/23 Source: Developed by Drs. Abran Lizama, Emilee Philippe, Mansoor Rivas and colleagues, with an educational smith from [employer]. Review of Systems Const Denies headache(s) Eyes Denies loss of vision ENT Denies vertigo, Denies dizziness, Denies headache(s) and Denies sore throat Card Reports chest pain, Denies leg edema and Denies lightheadedness Resp Denies cough, Denies hemoptysis and Denies wheezing GI Denies abdominal pain, Denies melena, Denies constipation, Reports excessive flatus, Reports dyspepsia, Reports heartburn, Denies diarrhea and Denies vomiting Musc Reports arthralgias (Left shoulder tension intermittently), Denies joint swelling, Reports numbness (Left arm/hand on and off attributed to carpal tunnel) and Denies tingling Neuro Denies Abnormal speech present, Reports behavioral changes, Denies vertigo, Denies dizziness, Denies headache(s), Denies loss of vision, Reports numbness (Left arm/hand on and off attributed to carpal tunnel) and Denies tingling Psych Reports behavioral changes Aller/Immun Denies wheezing Physical exam (Primary Care) Vital Signs: Last Vital Signs Temp 97.5 F 10/09/24 10:47 Pulse 90 10/09/24 10:47 Resp 20 10/09/24 10:47 BP 140/76 H 10/09/24 10:47 Pulse Ox 96 10/09/24 10:47 Oxygen Delivery Method Room Air 10/09/24 10:47 BMI result Body Mass Index 23.5 Tobacco/Smoking Status: Tobacco use Status Tobacco use date assessed 10/09/24 10/09/24 10:51 Patient Tobacco Use Status Never used Tobacco 10/09/24 10:51 e-Cigarette/Vaping Use Never Used 10/09/24 10:51 Thrive Assessment: Date of Thrive Assessment Date Thrive assessed 10/09/24 10/09/24 10:51 Currently or been in a relationship where the following occur: No concerns reported Const General: healthy appearing, no acute distress, alert and awake Nutritional Appearance: well nourished Orientation/consciousness: oriented to person, oriented to place and oriented to time HENMT Ears: external ears normal General nose exam: Normal external nose present Eyes Conjunctivae: conjunctivae normal Sclerae: sclerae normal Pupils: Equal, round and reactive pupils present Neck Neck: Yes no lymphadenopathy and Yes no JVD Thyroid: Thyroid normal Carotids: no bruits Resp Effort & Inspection: normal respiratory effort and not tachypneic Auscultation: no crackles, no rales, no rhonchi and no wheezes Cardio Rate: regular rate Rhythm: regular rhythm Heart sounds: no murmurs and normal S1 and S2 GI Palpation (GI): Soft to palpation, nontender, no hepatomegaly and no splenomegaly Auscultation: normal bowel sounds Skin General skin exam: no rashes or lesions noted and dry skin Neuro General: oriented to person, oriented to place and oriented to time Cranial nerves: Yes Equal, round and reactive pupils present Speech: No Abnormal speech present Gait exam (Neuro): Normal gait present Motor exam (neuro): no tremor noted Extrem Right upper extremity: full ROM Left upper extremity: full ROM Right lower extremity: full ROM; no edema Left lower extremity: full ROM; no edema Psych Mental Status: mental status grossly normal Speech and movement: Normal speech and movement present Affect: normal affect Attitude: cooperative Thought process: Normal thought process present Coding Level of Care Code Est Pt Level 3 (93035) Diagnoses Heart burn R12 Intermittent left-sided chest pain R07.89 Left shoulder pain, unspecified chronicity M25.512 Chronicity: unspecified Time Spent (min) 31 Assessment & Plan Assessment & Plan (1) Heart burn: Code(s): R12 - Heartburn Category: Medical (2) Intermittent left-sided chest pain: Code(s): R07.89 - Other chest pain Category: Medical (3) Left shoulder pain: Code(s): M25.512 - Pain in left shoulder Category: Medical Qualifiers: Chronicity: unspecified Qualified Code(s): M25.512 - Pain in left shoulder Plan I plan to address the likely diagnosis of gastroesophageal reflux disease through the initiation of omeprazole therapy, while excluding potential pancreatic pathology due to family history with pancreatic enzyme testing. Lifestyle modifications, including dietary changes and posture adjustments post-meal, are advised. We will reassess symptom response to proton pump inhibitor therapy, with consideration for further testing or intervention as needed should symptoms persist or worsen. Patient was informed and verbally consented to the use of an ambient scribe for clinic note documentation during this visit. Orders: Orders Basic Metabolic Panel 10/10/24 R0 - Other chest pain Amylase 10/10/24 - Other chest pain Lipase 10/10/24 - Other chest pain CRP High Sensitivity 10/10/24 - Other chest pain Complete Blood Count Auto Diff 10/10/24 - Other chest pain TSH reflex Free T4 10/10/24 - Other chest pain Erythrocyte Sedimentation Rate 10/10/24 - Other chest pain Medications: New omeprazole 20 mg PO DAILY 60 caps 1RF R12 - Heartburn Patient Instructions: - Take omeprazole daily before meals, but separate from levothyroxine by at least 30-45 minutes. - Avoid lying down within three hours after eating to help prevent reflux symptoms. - Limit or avoid caffeine and spicy foods to reduce symptom triggers. - Report any worsening or atypical symptoms promptly. - Follow up in six weeks to evaluate treatment response.
[2024-10-09 10:55] VITALS: BP 114/72
--- OUTSIDE RECORDS SUMMARY | 2024-10-09 12:42 | XMS_ITS ---
Author Organization [facility] Address [address] [place] [address] Care Team Providers Care Business Analytics Faculty Member Name Role Phone Laurence Gurrola MD Primary Care Provider Abran Liang [phone] REASON FOR VISIT rectal pain Problems Problem Type SNOMED Code ICD Code Onset Dates Problem Status W/U Status Risk Notes Problem Diarrhea (50898056) Diarrhea (R19.7) Active confirmed Encounters Encounter Location Date Provider Diagnosis [facility] [address] [place] [phone] 12/19/2023 Abran Jefferson Diarrhea R19.7 Assessments Encounter Date Diagnosis (ICD Code) Assessment Notes Treatment Notes Treatment Clinical Notes Section Notes 12/19/2023 Diarrhea (ICD-10 - R19.7) Plan Of Treatment Pending Test Test Name Order Date STOOL WBC 12/19/2023 C DIFFICILE RFLX PCR 12/19/2023 Calprotectin, Fecal 12/19/2023 GI PANEL 12/19/2023 Progress Notes * RETA ANDERSONB:[birth year] (73 yo F)Acc No.[id number]:12/19/2023 Patient:?YARITZA ANDERSON :1950???Age:73 Y???Sex:Female Address:[address] [place] [id number] Subjective: * Chief Complaints: * ???Rectal pain * Medical History:? * Surgical History:? * Hospitalization/Major Diagno stic Procedure:? * Medications:? Objective: Assessment: * Assessment: 1.?Diarrhea - R19.7 (Primary )? Plan: * Treatment: * Procedure Codes:? * true * Date:? Generated for Caterina obrien/Dionne/Tessy on:?10/09/2024 12:41 PM EDT
--- OUTSIDE RECORDS SUMMARY | 2024-10-09 12:42 | XMS_ITS | Patient Health Record ---
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 Name Role Phone Laurence Gurrola MD Primary Care Provider Abran Liang [phone] Allergies Allergen (clinical drug ingredient) Drug/Non Drug Allergy documented on EMR Reaction Allergy Type Onset Date Status Substance with sulfonamide structure and antibacterial mechanism of action (substance) Sulfa Antibiotics Unknown Drug Allergy Active lisinopril Lisinopril Unknown Drug Allergy Activ e Penicillin Unknown Drug Allergy Active ciprofloxacin Cipro Unknown Drug Allergy Act ritu Substance with 1-qdjyyxu-1-methylgluta ryl-coenzyme A reductase inhibitor mechanism of action (substance) Statins (uncoded) Unknown Allergy Active metronidazole Metronidazole Unknown Drug Allergy Active Reason For Referral No Information Medications Medication SIG (Take, Route, Frequency, Duration) Notes [...] BY 12 HRS Oral for 90 Active Immunizations Vaccine Route Administration Date Status Comme nts Influenza Unknown 03/25/2018 Administered Influenza Unknown 03/25/2019 Administered Problems Problem Type SNOMED Code ICD Code Onset Dates Problem Status W/U Status Risk Notes Problem Screening for malignant neoplasm of colon (020746524) Encounter for screening for malignant neoplasm of colon (Z12.11) Active confirmed Problem Diarrhea (95873002) Diarrhea (R19.7) Active confirmed Problem 83804481 Weight loss (R63.4) Active confirmed Problem Irritable bowel syndrome with diarrhea (550577343) Irritable bowel syndrome with diarrhea (K58.0) Active confirmed Problem Rectal pain (47493463) Rectal pain (K62.89) Active confirmed Problem 54630106 Diarrhea, unspecified type (R19.7) Active confirmed Problem 72929725 Other irritable bowel syndrome (K58.8) Active confirmed Problem 28644331 Irritable bowel syndrome with both constipation and diarrhea (K58.2) Active confirmed Problem 78238656 Change in bowel function (R19.8) Active confirmed Vital Signs Blood pressure diastolic 00 mm Hg 02/06/2024 Height 64 in 02/06/2024 Blood pressure systolic 00 mm Hg 02/06/2024 Weight 135 lbs 02/06/2024 BMI 23.17 kg/m2 02/06/2024 Encounters Encounter Location Date Provider Diagnosis [facility] [address] [place] [phone] 02/06/2024 Abran Jefferson Diarrhea, unspecifie d type R19.7 ; Irritable bowel syndrome with diarrhea K58.0 ; Encounter for screening for malignant neoplasm of colon Z12.11 and Rectal pain K62.89 [facility] [address] [place] [phone] 12/19/2023 Abran Jefferson Diarrhea R19.7 Assessments Encounter Date Diagnosis (ICD Code) Assessment Notes Treatment Notes Treatment Clinical Notes Section Notes 02/06/2024 Irritable bowel syndrome with diarrhea (ICD-10 - K58.0) Overall, Yaritza appears quite well. We did review her underlying and long-standing history of irritable bowel syndrome with associated diarrhea. We did review that her excellent clinical appearance, normal laboratories, and multiple negative colonoscopies are all quite reassuring. At this point it does seem that things are back to their baseline and the acute exacerbation has resolved. We did review that her rectal pain sounds consistent with that of a small fissure in Relation to the diarrhea and frequent cleaning. At this point I don't think she needs any particular workup such as a repeat colonoscopy or other laboratories. I don't think she needs any stool specimens at this time either. I have recommended that she use Imodium liberally on a daily basis to either prevent and/or decrease in diarrhea so as to prevent any recurrent perianal irritation such as a fissure. I also recommended that she continue to use preparation H cream as needed for any rectal discomfort. I advised her to try to increase the Citrucel fiber pills to 2 pills Once or twice a day with plenty of water to see if that might help improve her bowel movement regularity. We did review that she would theoretically be due for another colonoscopy for screening in 2028 given her 3 negative colonoscopies in the past, including the most recent one 2018. If things remain stable she'll otherwise see me on a p.r.n. basis. Yaritza was comfortable with this plan. Thank you again for allowing me to participate in Yaritza's care. I shall continue to keep you advised of her progress as needed. Please advise me if I can be of any further assistance in the future. 02/06/2024 Diarrhea, unspecified type (ICD-10 - R19.7) Use Imodium as needed daily to help and/or prevent diarrhea Use the Preparation H cream for rectal pain as needed Increase the Citrucel to try to decrease the diarrhea Overall, Yaritza appears quite well. We did review her underlying and long-standing history of irritable bowel syndrome with associated diarrhea. We did review that her excellent clinical appearance, normal laboratories, and multiple negative colonoscopies are all quite reassuring. At this point it does seem that things are back to their baseline and the acute exacerbation has resolved. We did review that her rectal pain sounds consistent with that of a small fissure in Relation to the diarrhea and frequent cleaning. At this point I don't think she needs any particular workup such as a repeat colonoscopy or other laboratories. I don't think she needs any stool specimens at this time either. I have recommended that she use Imodium liberally on a daily basis to either prevent and/or decrease in diarrhea so as to prevent any recurrent perianal irritation such as a fissure. I also recommended that she continue to use preparation H cream as needed for any rectal discomfort. I advised her to try to increase the Citrucel fiber pills to 2 pills Once or twice a day with plenty of water to see if that might help improve her bowel movement regularity. We did review that she would theoretically be due for another colonoscopy for screening in 2028 given her 3 negative colonoscopies in the past, including the most recent one 2018. If things remain stable she'll otherwise see me on a p.r.n. basis. Yaritza was comfortable with this plan. Thank you again for allowing me to participate in Yaritza's care. I shall continue to keep you advised of her progress as needed. Please advise me if I can be of any further assistance in the future. 12/19/2023 Diarrhea (ICD-10 - R19.7) 02/06/2024 Encounter for screening for malignant neoplasm of colon (ICD-10 - Z12.11) Repeat colonoscopy in 2028 Overall, Yaritza appears quite well. We did review her underlying and long-standing history of irritable bowel syndrome with associated diarrhea. We did review that her excellent clinical appearance, normal laboratories, and multiple negative colonoscopies are all quite reassuring. At this point it does seem that things are back to their baseline and the acute exacerbation has resolved. We did review that her rectal pain sounds consistent with that of a small fissure in Relation to the diarrhea and frequent cleaning. At this point I don't think she needs any particular workup such as a repeat colonoscopy or other laboratories. I don't think she needs any stool specimens at this time either. I have recommended that she use Imodium liberally on a daily basis to either prevent and/or decrease in diarrhea so as to prevent any recurrent perianal irritation such as a fissure. I also recommended that she continue to use preparation H cream as needed for any rectal discomfort. I advised her to try to increase the Citrucel fiber pills to 2 pills Once or twice a day with plenty of water to see if that might help improve her bowel movement regularity. We did review that she would theoretically be due for another colonoscopy for screening in 2028 given her 3 negative colonoscopies in the past, including the most recent one 2018. If things remain stable she'll otherwise see me on a p.r.n. basis. Yaritza was comfortable with this plan. Thank you again for allowing me to participate in Yaritza's care. I shall continue to keep you advised of her progress as needed. Please advise me if I can be of any further assistance in the future. 02/06/2024 Rectal pain (ICD-10 - K62.89) Overall, Yaritza appears quite well. We did review her underlying and long-standing history of irritable bowel syndrome with associated diarrhea. We did review that her excellent clinical appearance, normal laboratories, and multiple negative colonoscopies are all quite reassuring. At this point it does seem that things are back to their baseline and the acute exacerbation has resolved. We did review that her rectal pain sounds consistent with that of a small fissure in Relation to the diarrhea and frequent cleaning. At this point I don't think she needs any particular workup such as a repeat colonoscopy or other laboratories. I don't think she needs any stool specimens at this time either. I have recommended that she use Imodium liberally on a daily basis to either prevent and/or decrease in diarrhea so as to prevent any recurrent perianal irritation such as a fissure. I also recommended that she continue to use preparation H cream as needed for any rectal discomfort. I advised her to try to increase the Citrucel fiber pills to 2 pills Once or twice a day with plenty of water to see if that might help improve her bowel movement regularity. We did review that she would theoretically be due for another colonoscopy for screening in 2028 given her 3 negative colonoscopies in the past, including the most recent one 2018. If things remain stable she'll otherwise see me on a p.r.n. basis. Yaritza was comfortable with this plan. Thank you again for allowing me to participate in Yaritza's care. I shall continue to keep you advised of her progress as needed. Please advise me if I can be of any further assistance in the future. Plan Of Treatment Pending Test Test Name Order Date STOOL WBC 12/19/2023 C DIFFICILE RFLX PCR 12/19/2023 Calprotectin, Fecal 12/19/2023 GI PANEL 12/19/2023 Future Test Test Name Order Date COLONOSCOPY 11/07/2012 COLONOSCOPY 01/07/2019 Insurance Providers Payer Name Payer Address Payer Phone Subscriber Number Group Number Insured Name Patient Relationship to Insured Coverage Start Date Coverage End Date MEDICARE OF [place] [address] [place] [address] [id number] YARITZA AVINA Self - patient is the insured [employer] CLAIMS [address] [place] [address] [id number] YARITZA AVINA Self - patient is the insured Medical (General) History Medical History History ICD Code Colon and EGD 05-11-2003--co lonoscopy was normal other than occasional diverticulosis and small internal hemorrhoids, and the upper endoscopy was normal as well, including duodenal biopsies Hypothyroid Elevated cholesterol Denies [place],DM,CVA,Lung disease,renal dise ase Breast cancer as below Seasonal allergies Negative screening colonoscopy in 3 except diverticulosis IBS--neg celiac disease labs in 12/2018 Neg. colonoscopy in 12/2018-- no polyps, no colitis, bx neg for microscopic colitis Diverticulitis in 10/2018---u ncomplicated--sigmoid colon on CT scan in 10/2019---3rd episode Hypertension Surgical History Surgery Date(Month/Year) Surgery for breast cancer-le aman mastectomy 2001-XRT and Chemo--sees Dr. Damon 2001 Laparoscopy for lysis of adhesions
--- OUTSIDE RECORDS SUMMARY | 2024-10-09 12:42 | XMS_ITS ---
Author Organization [facility] Address [address] [place] [address] Care Team Providers Care Topographic Computator Name Role Phone Laurence Gurrola MD Primary Care Provider Abran Liang [phone] Allergies Allergen (clinical drug ingredient) Drug/Non Drug Allergy documented on EMR Reaction Allergy Type Onset Date Status Substance with sulfonamide structure and antibacterial mechanism of action (substance) Sulfa Antibiotics Unknown Drug Allergy Active lisinopril Lisinopril Unknown Drug Allergy Activ e Penicillin Unknown Drug Allergy Active ciprofloxacin Cipro Unknown Drug Allergy Act ritu Substance with 9-pamzqgi-7-methylgluta ryl-coenzyme A reductase inhibitor mechanism of action (substance) Statins (uncoded) Unknown Allergy Active metronidazole Metronidazole Unknown Drug Allergy Active REASON FOR VISIT Patient presents today for a rectal pain Medications Medication SIG (Take, Route, Frequency, Duration) [...] 1 application Externally Twice a day Active Problems Problem Type SNOMED Code ICD Code Onset Dates Problem Status W/U Status Risk Notes Problem Irritable bowel syndrome with diarrhea (468427413) Irritable bowel syndrome with diarrhea (K58.0) Active confirmed Problem Screening for malignant neoplasm of colon (157615243) Encounter for screening for malignant neoplasm of colon (Z12.11) Active confirmed Problem Rectal pain (52653296) Rectal pain (K62.89) Active confirmed Vital Signs Blood pressure systolic 00 mm Hg 02/06/20 24 Blood pressure diastolic 00 mm Hg 024 Height 64 in 02/06/2024 Weight 135 lbs 02/06/2024 BMI 23.17 kg/m2 02/06/2024 Encounters Encounter Location Date Provider Diagnosis [facility] [address] [place] [address] 02/06/2024 Abran Jefferson Diarrhea, unspecifie d type R19.7 ; Irritable bowel syndrome with diarrhea K58.0 ; Encounter for screening for malignant neoplasm of colon Z12.11 and Rectal pain K62.89 Assessments Encounter Date Diagnosis (ICD Code) Assessment Notes Treatment Notes Treatment Clinical Notes Section Notes 02/06/2024 Diarrhea, unspecified type (ICD-10 - [...] any further assistance in the future. 02/06/2024 Irritable bowel syndrome with diarrhea (ICD-10 [...] any further assistance in the future. 02/06/2024 Encounter for screening for malignant neoplasm [...] assistance in the future. Plan Of Treatment Treatment Notes Assessment Notes Diarrhea, unspecified type Use Imodium as needed daily to help and/or prevent diarrhea Use the Preparation H cream for rectal pain as needed Increase the Citrucel to try to decrease the diarrhea Encounter for screening for malignant neoplasm of colon Repeat colonoscopy in 2028 Next Appt Details Follow Up: prn, Reason: Progress Notes * RETA ANDERSONB:[birth year] (74 yo F)Acc No.[id number]:02/06/2024 Progress Notes Patient:?YARITZA ANDERSON Provider:?Abran Jefferson MD :1950???Age:74 Y???Sex:Female D ate:02/06/2024 Address:[address] [place] [address] Pcp:Laurence Gurrola MD Subjective: * Chief Complaints: * ???Patient presents today fo r a rectal pain * HPI: ???incontinence:? I saw Yaritza in the office today for followup of her chronic irritable bowel syndrome with associated diarrhea and some rectal discomfort. ?I last saw Yaritza in January of 2023, at which time we had reviewed her underlying irritable bowel syndrome as well as a preceding gastroenteritis with diarrhea. When I saw her at that time things had stabilized and she was feeling better. She has had 3 negative colonoscopies in the past including the most recent one in 2019 that was negative for any polyps, inflammatory bowel disease and microscopic colitis. ?She reports that she was doing well until a month or 2 ago when she developed increasing diarrhea and rectal pain with associated burning. This was not associated with any bleeding, travel, ill contacts, nor antibiotic use. She did start some Imodium as needed which did give her some relief. She has also been using some preparation H cream which gave her relief of the rectal discomfort. She has also been taking one Citrucel fiber pill supplement daily. ?She reports that she is presently having about 3 or 4 soft and formed bowel movements per day. The loose and frequent episodes of diarrhea have resolved. The previous rectal discomfort has also improved significantly. She otherwise feels well. She enjoys a good appetite, without any significant heartburn or dysphagia. She denies any abdominal pain, jaundice, or unintentional weight loss. She denies any known family history of colorectal cancer, inflammatory bowel disease, nor celiac disease. ?Laboratories last month that revealed a normal CBC, chemistries and renal function, and LFTs. She had normal thyroid studies in 2022 as well. * ROS:?General/Constitutional:?Change in appetite?denies.?Chills?denies.?Fatigue?denies.?Ophthalmologic:?Patient denies? Negative..?ENT:?Patient denies?Negative..?Respiratory:?Patient denies?No coughing/hemoptysis..?Cardiovascular:?Patient denies? No chest pain/orthopnea..?Gastrointestinal:?Comments?See HPI for details.?Genitourinary:?Patient denies? No dysuria/hematuria..?Musculoskeletal:?Patient denies? No specific arthralgias/myalgias..?Skin:?Patient denies?No rash/pruritus..?Neurologic:?Patient denies? No headaches/seizures..?Psychiatric:?Patient denies?Negative..? * Medical History:? * Surgical History:?Surgery fo r breast cancer-left mastectomy 2002-XRT and Chemo--sees Dr. Damon 2002Laparoscopy for lysis of adhesions * Hospitalization/Major Diagno stic Procedure:?No Hospitalization History. * Family History:?Father: dece ased.?Mother: , Mother had pancreatic cancer., diagnosed with HTN (hypertension), Heart disease.?Paternal aunt: colon cancer.? * Social History:?Tobacco Use:?Tobacco Use/Smoking?Are you a: nonsmoker.?Drugs/Alcohol:?Alcohol Screen?Points: 1, Interpretation: Negative.?Miscellaneous:?Marital status: Single. Occupation: Works at [employer] in the [employer] department/ retired 2017. ???She does not smoke or use any significant amounts of alcohol. * Medications:?TakingAzelaic A amairani 15 % Gel 1 application Externally Twice a dayCalcium + Vitamin D3 Raloxifene HCl 60 MG Tablet TAKE 1 TABLET BY MOUTH EVERY DAY Oral Levothyroxine Sodium 75 MCG Tablet TAKE 1 TABLET BY MOUTH EVERY DAY IN THE MORNING ON EMPTY STOMACH *SEPARATE FROM RALOXEFINE BY 12 HRS Oral Ezetimibe 10 MG Tablet TAKE 1 TABLET BY MOUTH EVERY DAY Oral Flonase Allergy Relief 50 MCG/ACT Suspension 1 spray in each nostril Nasally Once a dayKetoconazole 2 % Shampoo USE TO SHAMPOO ONCE A WEEK FOR 30 DAYS External Probiotic - Tablet Delayed Release as directed Orally Multivitamin Adult - Tablet as directed Orally amLODIPine Besylate 5 MG Tablet TAKE 1 TABLET BY MOUTH EVERY DAY Oral Taking Azelaic Acid 15 % Gel 1 application Externally Twice a dayTaking Calcium + Vitamin D3 Taking Raloxifene HCl 60 MG Tablet TAKE 1 TABLET BY MOUTH EVERY DAY Oral Taking Levothyroxine Sodium 75 MCG Tablet TAKE 1 TABLET BY MOUTH EVERY DAY IN THE MORNING ON EMPTY STOMACH *SEPARATE FROM RALOXEFINE BY 12 HRS Oral Taking Ezetimibe 10 MG Tablet TAKE 1 TABLET BY MOUTH EVERY DAY Oral Taking Flonase Allergy Relief 50 MCG/ACT Suspension 1 spray in each nostril Nasally Once a dayTaking Ketoconazole 2 % Shampoo USE TO SHAMPOO ONCE A WEEK FOR 30 DAYS External Taking Probiotic - Tablet Delayed Release as directed Orally Taking Multivitamin Adult - Tablet as directed Orally Taking amLODIPine Besylate 5 MG Tablet TAKE 1 TABLET BY MOUTH EVERY DAY Oral Not-Taking/PRNDicyclomine HCl 10 MG Capsule TAKE 1 TO 2 CAPSULES BY MOUTH BEFORE MEALS NEEDED Oral Esomeprazole Magnesium 20 MG Capsule Delayed Release TAKE 1 CAPSULE BY MOUTH EVERY DAY Oral Not-Taking/PRN Dicyclomine HCl 10 MG Capsule TAKE 1 TO 2 CAPSULES BY MOUTH BEFORE MEALS NEEDED Oral Not-Taking/PRN Esomeprazole Magnesium 20 MG Capsule Delayed Release TAKE 1 CAPSULE BY MOUTH EVERY DAY Oral DiscontinuedHydrocortisone Acetate 25 MG Suppository 1 application Rectal as directedOmeprazole 20 MG Capsule Delayed Release 1 capsule 30 minutes before morning meal Orally Once a day/ prnBenefiber - Powder as directed Orally at nightDiphenoxylate-Atropine 2.5-0.025 MG Tablet Oral Medication List reviewed and reconciled with the patientDiscontinued Hydrocortisone Acetate 25 MG Suppository 1 application Rectal as directedDiscontinued Omeprazole 20 MG Capsule Delayed Release 1 capsule 30 minutes before morning meal Orally Once a day/ prnDiscontinued Benefiber - Powder as directed Orally at nightDiscontinued Diphenoxylate-Atropine 2.5-0.025 MG Tablet Oral Medication List reviewed and reconciled with the patient * Allergies:?PenicillinStatins LisinoprilSulfa AntibioticsMetronidazoleCiproyes[Allergies Verified] Objective: * Vitals:?Wt: 135 lbs, Ht: 64 in, BMI:23.17 Index, BP: 00/00 mm Hg. * Examination: ???General Examination: ?GENERAL APPEARANCE:?pleasant, well nourished, well developed, in no acute distress.?EYES:?sclera non-icteric.?ORAL CAVITY:?mucosa moist.?NECK/THYROID:?no cervical lymphadenopathy, neck supple.?SKIN:?nonjaundiced, no spider angiomata..?HEART:?S1, S2 normal.?LUNGS:?clear to auscultation bilaterally.?ABDOMEN:?normal bowel sounds, no guarding or rigidity, no hepatosplenomegaly, no masses palpable, soft, nontender, nondistended..?EXTREMITIES:?no edema.?NEUROLOGIC:?alert and oriented.? Assessment: * Assessment: 1.?Irritable bowel syndrome with diarrhea - K58.0 (Primary)?2.?Diarrhea, unspecified type - R19.7?3.?Encounter for screening for malignant neoplasm of colon - Z12.11?4.?Rectal pain - K62.89? Overall, Yaritza appears quite well. We did review her underlying and long- standing history of irritable bowel syndrome with associated [...] of any further assistance in the future. Plan: * Treatment: 2.?Encounter for screening f or malignant neoplasm of colon? Notes: Repeat colonoscopy in 2028?? * Procedure Codes:?3017F COLOR ECTAL CA SCREEN DOC [id number] TOBACCO [id number]-[id number] BP SCR NOT PRFRM REC REASON NOS * Preventive Medicine:? ??Urinary Incontinence:?Urinary Incontinence?Assessment:?Absent.? ??Screenings:?Fall Risk Screening?Fall Risk Assessment:?No falls in the past year.? * Follow Up:?prn * * Sign off status: Completed true * Provider:?Abran Jefferson MD Date:? 024 Generated for Caterina obrien/Dionne/Tessy on:?10/09/2024 12:41 PM EDT History and Physical Notes * HPI (History of Present Illness) Category Sub-Category Detail Notes Category Not es incontinence I saw Yaritza in the office today for followup of her chronic irritable bowel syndrome with associated diarrhea and some rectal discomfort. I last saw Yaritza in January of 2023, at which time we had reviewed her underlying irritable bowel syndrome as well as a preceding gastroenteritis with diarrhea. When I saw her at that time things had stabilized and she was feeling better. She has had 3 negative colonoscopies in the past including the most recent one in 2018 that was negative for any polyps, inflammatory bowel disease and microscopic colitis. She reports that she was doing well until a month or 2 ago when she developed increasing diarrhea and rectal pain with associated burning. This was not associated with any bleeding, travel, ill contacts, nor antibiotic use. She did start some Imodium as needed which did give her some relief. She has also been using some preparation H cream which gave her relief of the rectal discomfort. She has also been taking one Citrucel fiber pill supplement daily. She reports that she is presently having about 3 or 4 soft and formed bowel movements per day. The loose and frequent episodes of diarrhea have resolved. The previous rectal discomfort has also improved significantly. She otherwise feels well. She enjoys a good appetite, without any significant heartburn or dysphagia. She denies any abdominal pain, jaundice, or unintentional weight loss. She denies any known family history of colorectal cancer, inflammatory bowel disease, nor celiac disease. Laboratories last month that revealed a normal CBC, chemistries and renal function, and LFTs. She had normal thyroid studies in 2022 as well. Examination Category Sub-Category Detail Notes Category Not es General Examination GENERAL APPEARANCE: pleasant , well [...]
== END 2024-10-09 11:52 | disposition home or self-care (01) ==
LOC: HO.HMCH 10:33
PROVIDERS: PCP Internal Medicine
DX: R12 Heartburn (principal); R07.89 Other chest pain; M25.512 Pain in left shoulder

== ENCOUNTER → 2024-10-09 10:32 | Outpatient (BNVA) | payer MEDICARE, SELFPAY | PROVIDERS: PCP Internal Medicine | DX: R07.89 Other chest pain (principal); R12 Heartburn; M25.512 Pain in left shoulder | CPT/HCPCS: 99212 ==

== ENCOUNTER 2024-10-10 09:12 | Outpatient (REF) | payer MEDICARE, SELFPAY ==
--- OUTSIDE RECORDS SUMMARY | 2024-10-10 09:41 | XMS_ITS ---
Author Organization [facility] Address [address] [place] [address] Care Team Providers Care Flower Maker Name Role Phone Laurence Gurrola MD Primary Care Provider Abran Liang [phone] Allergies Allergen (clinical drug ingredient) Drug/Non Drug Allergy documented on EMR Reaction Allergy Type Onset Date Status Substance with sulfonamide structure and antibacterial mechanism of action (substance) Sulfa Antibiotics Unknown Drug Allergy Active lisinopril Lisinopril Unknown Drug Allergy Activ e Penicillin Unknown Drug Allergy Active ciprofloxacin Cipro Unknown Drug Allergy Act ritu Substance with 3-ibuusxa-4-methylgluta ryl-coenzyme A reductase inhibitor mechanism of action [...] Notes Problem Irritable bowel syndrome with diarrhea (478911300) Irritable bowel syndrome with diarrhea (K58.0) Active confirmed Problem Screening for malignant neoplasm of colon (303915879) Encounter for screening for malignant neoplasm of colon (Z12.11) Active confirmed Problem Rectal pain (23447881) Rectal pain (K62.89) Active confirmed Vital Signs Blood pressure systolic 00 mm Hg 02/06/20 24 Blood pressure diastolic 00 mm Hg 024 Height 64 in 02/06/2024 Weight 135 lbs 02/06/2024 BMI 23.17 kg/m2 02/06/2024 Encounters Encounter Location Date Provider Diagnosis [facility] [address] [place] [address] 02/06/2024 Abran Jefferson Diarrhea, unspecifie d type [...] * RETA ANDERSONB:[birth year] (74 yo F)Acc No.[id number]:02/06/2024 Progress Notes Patient:?YARITZA ANDERSON Provider:?Abran Jefferson MD :1950???Age:74 Y???Sex:Female D ate:02/06/2024 Address:[address] [place] [address] Pcp:Laurence Gurrola MD Subjective: * Chief Complaints: [...] Interpretation: Negative.?Miscellaneous:?Marital status: Single. 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 ???She does not smoke or use any significant amounts of alcohol. * Medications:?TakingAzelaic A maairani 15 % Gel 1 application Externally Twice [...] Procedure Codes:?3017F COLOR ECTAL CA SCREEN DOC [id number] TOBACCO NON-MITSC6155 BP SCR NOT PRFRM REC REASON NOS * Preventive Medicine:? ??Urinary Incontinence:?Urinary Incontinence?Assessment:?Absent.? ??Screenings:?Fall Risk Screening?Fall Risk Assessment:?No falls in the past year.? * Follow Up:?prn * * Sign off status: Completed true * Provider:?Abran Jefferson MD Date:? 024 Generated for Caterina obrien/Dionne/Edensmgarrett on:?10/10/2024 09:40 AM EDT History and Physical Notes * HPI [...]
--- OUTSIDE RECORDS SUMMARY | 2024-10-10 09:41 | XMS_ITS ---
Author Organization [facility] Address [address] [place] [id number] Care Team Providers Care First Press Operator Name Role Phone Laurence Gurrola MD Primary Care Provider Abran Liang [phone] REASON FOR VISIT rectal pain Problems Problem Type SNOMED Code ICD Code Onset Dates Problem Status W/U Status Risk Notes Problem Diarrhea (26898965) Diarrhea (R19.7) Active confirmed Encounters Encounter Location Date Provider Diagnosis [facility] [address] [place] [phone] 12/19/2023 Abran Jefferson Diarrhea R19.7 Assessments Encounter Date Diagnosis (ICD Code) Assessment Notes Treatment Notes Treatment Clinical Notes Section Notes 12/19/2023 Diarrhea (ICD-10 - R19.7) Plan Of Treatment Pending Test Test Name Order Date STOOL WBC 12/19/2023 C DIFFICILE RFLX PCR 12/19/2023 Calprotectin, Fecal 12/19/2023 GI PANEL 12/19/2023 Progress Notes * RETA ANDERSONB:[birth year] (73 yo F)Acc No.[id number]:12/19/2023 Patient:?YARITZA ANDERSON :1950???Age:73 Y???Sex:Female Address:[address] [place] [id number] Subjective: * Chief Complaints: * ???Rectal pain * Medical History:? * Surgical History:? * Hospitalization/Major Diagno stic Procedure:? * Medications:? Objective: Assessment: * Assessment: 1.?Diarrhea - R19.7 (Primary )? Plan: * Treatment: * Procedure Codes:? * true * Date:? Generated for Caterina obrien/Dionne/Tessy on:?10/10/2024 09:40 AM EDT
--- OUTSIDE RECORDS SUMMARY | 2024-10-10 09:41 | XMS_ITS | Patient Health Record ---
Author Organization [facility] Address [address] [place] [address] Care Team Providers Care Depositing Machine Operator Name Role Phone Laurence Gurrola MD Primary Care Provider Abran Liang [phone] Allergies Allergen (clinical drug ingredient) Drug/Non Drug Allergy documented on EMR Reaction Allergy Type Onset Date Status Substance with sulfonamide structure and antibacterial mechanism of action (substance) Sulfa Antibiotics Unknown Drug Allergy Active lisinopril Lisinopril Unknown Drug Allergy Activ e Penicillin Unknown Drug Allergy Active ciprofloxacin Cipro Unknown Drug Allergy Act ritu Substance with 8-fsmoszy-8-methylgluta ryl-coenzyme A reductase inhibitor mechanism of action [...] Problem Screening for malignant neoplasm of colon (128458245) Encounter for screening for malignant neoplasm of colon (Z12.11) Active confirmed Problem Diarrhea (27057155) Diarrhea (R19.7) Active confirmed Problem 37862782 Weight loss (R63.4) Active confirmed Problem Irritable bowel syndrome with diarrhea (728010413) Irritable bowel syndrome with diarrhea (K58.0) Active confirmed Problem Rectal pain (60702859) Rectal pain (K62.89) Active confirmed Problem 85504423 Diarrhea, unspecified type (R19.7) Active confirmed Problem 81819724 Other irritable bowel syndrome (K58.8) Active confirmed Problem 14441973 Irritable bowel syndrome with both constipation and diarrhea (K58.2) Active confirmed Problem 76557515 Change in bowel function (R19.8) Active confirmed Vital Signs Blood pressure diastolic 00 mm Hg 02/06/2024 Height 64 in 02/06/2024 Blood pressure systolic 00 mm Hg 02/06/2024 Weight 135 lbs 02/06/2024 BMI 23.17 kg/m2 02/06/2024 Encounters Encounter Location Date Provider Diagnosis [facility] [address] [place] [phone] 02/06/2024 Abran Jefferson Diarrhea, unspecifie d type R19.7 ; Irritable bowel syndrome with diarrhea K58.0 ; Encounter for screening for malignant neoplasm of colon Z12.11 and Rectal pain K62.89 [facility] [address] [place] [phone] 12/19/2023 Abran Jefferson Diarrhea R19.7 Assessments Encounter [...] [place] [address] [place] [address] [id number] YARITZA AVINA Self - patient is the insured [employer] CLAIM[employer] [address] [place] [address] [id number] YARITZA AVINA Self - patient is the insured Medical (General) History Medical History History ICD Code Colon and EGD 05-11-2003--co lonoscopy was normal other than occasional diverticulosis and small internal hemorrhoids, and the upper endoscopy was normal as well, including duodenal biopsies Hypothyroid Elevated cholesterol Denies MS,DM,CVA,Lung disease,renal dise ase Breast cancer as below [...]
[2024-10-10 13:15] LABS: MANUAL DIFF FLAG NO
[2024-10-10 13:31] LABS: Basophils Absolute Auto 0.1 X10*3/uL (0.0-0.2); Basophils Percent Auto 1.1 % (0-2); Eosinophils Absolute Auto 0.3 X10*3/uL (0.0-0.4); Eosinophils Percent Auto 3.5 % (0-4); Hemoglobin 14.6 g/dl (12.0-16.0); Imm Gran Abs Auto 0.02 X10*3/uL (0.00-0.03); Imm Gran Pct Auto 0.2 % (0.0-0.4); Lymphocytes Absolute Auto 2.2 X10*3/uL (1.2-4.9); Lymphocytes Percent Auto 27.3 % (20-40); Mean Corpuscular HGB Conc 32.4 g/dl (31.0-35.0); Mean Corpuscular Hemoglobin 29.6 pg (27.0-33.0); Mean Corpuscular Volume 91.1 fL (80.0-98.0); Mean Platelet Volume 9.5 fL (9.4-12.3); Monocytes Absolute Auto 0.9 X10*3/uL (0.1-1.2); Monocytes Percent Auto 10.8 % (2-11); Neutrophils Absolute Auto 4.7 x10*3/uL (2.0-8.3); Neutrophils Percent Auto 57.1 % (45-73); Platelet Count 340 X10*3/uL (160-400); Red Blood Count 4.94 X10*6/uL (4.20-5.50); Red Cell Distribution Width 13.2 % (11.0-16.0); White Blood Count 8.2 X10*3/uL (4.8-10.8)
[2024-10-10 13:58] LABS: Anion Gap 12 (12-20); Blood Urea Nitrogen 13 mg/dL (9-16); Calcium 9.3 mg/dL (8.4-10.2); Carbon Dioxide 26 mmol/L (22-29); Chloride 105 mmol/L (96-108); Estimated Glomerular Filt Rate > 60; Glucose Random 115 mg/dL (60-115); Lipase 25 U/L (8-78); Sodium 139 mmol/L (135-145)
[2024-10-10 14:10] LABS: TSH reflex Free T4 0.77 uIU/mL (0.32-4.0)
[2024-10-10 14:31] LABS: Erythrocyte Sedimentation Rate 5 MM/HR (0-20)
[2024-10-10 19:29] LABS: Amylase 34 U/L (28-100)
[2024-10-13 12:14] LABS: CRP High Sensitivity 1.2 mg/L
== END 2024-10-10 09:13 | disposition home or self-care (01) ==
LOC: HO.HMGCLDS 09:12
PROVIDERS: PCP Internal Medicine
DX: R07.89 Other chest pain (principal)
CPT/HCPCS: 36415; 80048; 82150; 83690; 84443; 85025; 85652; 86141

== ENCOUNTER 2024-11-21 10:36 | Outpatient (AMB) | payer MEDICARE, SELFPAY ==
[2024-11-21 10:51] VITALS: BP 138/82; PULSE 78; O2SAT 98; BMI 23.2
--- NOTE | 2024-11-21 10:51 | MHC.PC.OV ---
Vital Signs 11/21/24 10:51 Height 5 ft 3 in Weight 131 lb BMI 23.2 BP 138/82 Blood Pressure Location Lt brachial Position Sitting Pulse 78 Pulse Source Pulse Oximeter Pulse Oximetry (%) 98 Oxygen Delivery Method Room Air Intake Visit Reasons: Heartburn Allergies Zmtcpvb-DSH-TxL Reductase Inhibitor [WUHMMZZ-TEO-AEL REDUCTASE INHIBITOR] Allergy (Mild, Verified 11/21/24 10:51) ACHY atorvastatin [From Lipitor] Allergy (Unknown, Verified 11/21/24 10:51) Muscle Pain ciprofloxacin [Cipro] Allergy (Unknown, Verified 11/21/24 10:51) Anaphylaxis metronidazole Allergy (Unknown, Verified 11/21/24 10:51) anaphylaxis rosuvastatin [From Crestor] Allergy (Unknown, Verified 11/21/24 10:51) Muscle Pain simvastatin Allergy (Unknown, Verified 11/21/24 10:51) Muscle Pain Sulfa (Sulfonamide Antibiotics) Allergy (Unknown, Verified 11/21/24 10:51) diarrhea sulfamethoxazole [From Bactrim] Allergy (Unknown, Verified 11/21/24 10:51) Unknown trimethoprim [From Bactrim] Allergy (Unknown, Verified 11/21/24 10:51) Unknown hydrochlorothiazide Adverse Reaction (Intermediate, Verified 11/21/24 10:51) myalgia lisinopril Adverse Reaction (Intermediate, Verified 11/21/24 10:51) Cough SEASONAL ALLERGIES Allergy (Intermediate, Uncoded 11/21/24 10:51) ITCHING Medication List - Last Reconciled 11/21/24 by Laurence Gurrola MD amlodipine 5 mg PO DAILY calcium carbonate-vitamin D3 600 mg-5 mcg (200 unit) (Calcium 600 + D(3)) 1 cap PO DAILY cetirizine 10 mg PO DAILY ezetimibe (Zetia) 10 mg PO DAILY fluticasone propionate 50 mcg/actuation 2 sprays intranasal DAILY ketoconazole 2% 1 appl topical 2XW levothyroxine 75 mcg PO QAM 90 days magnesium 250 mg PO DAILY [mastectomy bra (left) As directed] multivitamin 1 tab PO DAILY omeprazole 20 mg PO DAILY prosthetics As directed raloxifene 60 mg orally Saccharomyces boulardii (Daily Probiotic (S. boulardii)) 250 mg PO DAILY Tobacco use date assessed: 10/09/24 Fall risk assessment: No Falls in past year Last assessed Fall Risk: 11/21/24 Dental Screening Dental Screen Date: 10/09/24 HPI Heartburn HPI Details 2 months L side chest pain post covid had L sided and feels more with gardening and laundry, deny fall or trauma , no problem with exercise PFSH Medical History (Updated 11/21/24 @ 11:12 by Laurence Gurrola MD) Acute respiratory disease Sacroiliac joint dysfunction of left side Breast density Adult general medical exam Chest tightness Shortness of breath Drug allergy, antibiotic Diverticular disease Irritable bowel syndrome Pulmonary nodule Insomnia Anxiety Family history of pancreatic cancer Family history of malignant neoplasm of endometrium Hypercholesterolemia History of left breast cancer Hypothyroidism Hypertension Surgical History History of cataract surgery History of colonoscopy History of tonsillectomy History of left mastectomy History of laparoscopy Family History Father History of cirrhosis Lung cancer Mother Pancreatic cancer CVD (cardiovascular disease) Hypertension Sister History of endometrial cancer Brother No problems noted. 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 1. Little interest or pleasure in doing things: not at all 2. Feeling down, depressed, or hopeless: not at all 3. Trouble falling or staying asleep, or sleeping too much: several days 4. Feeling tired or having little energy: several days 5. Poor appetite or overeating: not at all 6. Feeling bad about yourself - or that you are a failure or have let yourself or your family down: not at all 7. Trouble concentrating on things, such as reading the newspaper or watching television: not at all 8. Moving or speaking so slowly that other people could have noticed. Or the opposite - being so fidgety or restless that you have been moving around a lot more than usual: not at all 9. Thoughts that you would be better off or of hurting yourself in some way: not at all Total score: 2 Depression Screening Interpretation: Positive Depression Screening Done: Yes Source: Developed by Drs. Abran Lizama, Emilee Philippe, Mansoor Rivas and colleagues, with an educational smith from [employer]. Thrive Questionnaire Date Thrive assessed: 11/14/24 I am a: Patient What is your living situation today?: I have a steady place to live Within the past 12 months, did the food you bought not last and you didn't have the money to get more?: Never true Within the past 12 months, did you worry whether your food would run out before you got money to buy more?: Never true Do you have trouble paying for medicines?: No Do you have trouble getting transportation to medical appointments?: No Do you have trouble paying your heating and electricity bill?: No Do you have trouble taking care of your child, family member or friend?: No Do you have trouble with day-to-day activities such as bathing, preparing meals, shopping, managing finances, etc.?: No Are you currently unemployed and looking for a job?: No Are you interested in more education?: No Please select the resources that you would like help with: None Currently or been in a relationship where the following occur: No concerns reported THRIVE Score: 0 AUDIT C Alcohol Use Questionnaire (AUDIT-C) 1. How often do you have a drink containing alcohol?: Monthly or less (Rarely) 2. How many drinks containing alcohol do you have on a typical day when you are drinking?: 1 or 2 3. How often do you have six or more drinks on one occasion?: Never Total Score: 1 Score Reviewed/Action Taken: No FEDERICO-7 AMB Questionnaire FEDERICO-7 Date FEDERICO - 7 assessed: 11/21/24 Feeling nervous, anxious, or on edge: 0 = Not at all Not being able to stop or control worryin = Not at all Worrying too much about different things: 0 = Not at all Trouble relaxin = Not at all Being so restless that it is hard to sit still: 0 = Not at all Becoming easily annoyed or irritable: 0 = Not at all Feeling afraid as if something awful might happen: 0 = Not at all Total FEDERICO-7 score (0-4 normal; 5-9 mild; 10-14 moderate; 15-21 severe): 0 Source: Developed by Drs. Abran Lizama, Emilee Philippe, Mansoor Rivas and colleagues, with an educational smith from [employer]. Physical exam (Primary Care) Vital Signs: Last Vital Signs Pulse 78 11/21/24 10:51 BP 138/82 11/21/24 10:51 Pulse Ox 98 11/21/24 10:51 Oxygen Delivery Method Room Air 11/21/24 10:51 BMI result Body Mass Index 23.2 Tobacco/Smoking Status: Tobacco use Status Tobacco use date assessed 10/09/24 11/21/24 10:56 Patient Tobacco Use Status Never used Tobacco 11/21/24 10:56 Tobacco use type Cigarette 11/21/24 10:56 e-Cigarette/Vaping Use Never Used 11/21/24 10:56 PHQ-9: PHQ-9 Score PHQ-9: Total score 2 11/21/24 11:25 Depression Screening Interpretation: Positive Thrive Assessment: Date of Thrive Assessment Date Thrive assessed 11/14/24 11/21/24 10:56 Currently or been in a relationship where the following occur: No concerns reported Const General: alert; No acute distress Eyes Conjunctivae: conjunctivae normal Resp Auscultation: clear to auscultation bilaterally Cardio Rate: regular rate Rhythm: regular rhythm GI Inspection: Yes normal to inspection Extrem General: Yes normal to inspection and No edema Immunizations Tenivac (PF) 5 Lf unit-2 Lf unit/0.5 mL intramuscular syringe Performing Provider: Laurence Gurrola MD [facility] Administered by: BRIAN Mckeon on 11/21/24 11:25 Dose Route Admin Location Dispensed Lot Number Expiration Date [facility] Basin Cleaner 0.5 mL IM Right Deltoid 0.5 mL [id number] 08/23/26 [id number] [employer] VIS Given Date VIS Provided VIS Publication Date 11/21/24 Single Vaccine 21 Eligibility Eligibility Date Funding Source Not [facility] Eligible 11/21/24 Private Coding Level of Care Code Est Pt Level 4 (14157) Complex EM visit Add On G2211 Diagnoses Essential hypertension I10 Hypertension type: essential hypertension Acquired hypothyroidism E03.9 Hypothyroidism type: acquired History of left breast cancer Z85.3 Hypercholesterolemia E78.00 GERD (gastroesophageal reflux disease) K21.9 Left-sided chest pain R07.9 Assessment & Plan Assessment & Plan (1) Hypertension: Code(s): I10 - Essential (primary) hypertension Category: Medical Qualifiers: Hypertension type: essential hypertension Qualified Code(s): I10 - Essential (primary) hypertension Plan: Continue with blood pressure medication. Decrease salt intake and exercise patient on amlodipine 5 mg once a day (2) Hypothyroidism: Comment: History of Maia's Code(s): E03.9 - Hypothyroidism, unspecified Category: Medical Qualifiers: Hypothyroidism type: acquired Qualified Code(s): E03.9 - Hypothyroidism, unspecified Plan: continue with thyroid medication (3) History of left breast cancer: Comment: Mammogram June 2023 Code(s): Z85.3 - Personal history of malignant neoplasm of breast Category: Social Hx Plan: patient up-to-date with mammogram (4) Hypercholesterolemia: Code(s): E78.00 - Pure hypercholesterolemia, unspecified Category: Medical Plan: Avoid fried foods, chicken skin, eggs, butter margarine, pastries and meat. Be it pork or beef they have a lot of cholesterol LDL goal of less than 130 and triglyceride of less than 150. Patient on Zetia (5) GERD (gastroesophageal reflux disease): Code(s): K21.9 - Gastro-esophageal reflux disease without esophagitis Category: Medical Plan: Avoid the foods that causes that usually spicy foods, tomato products, juices, coffee, soda and foods that your sensitive to. After eating do not lie down, allow 3-4 hours before in lie down. And keep the head of bed above 30 degrees to avoid the acid from going up. (6) Left-sided chest pain: Code(s): R07.9 - Chest pain, unspecified Category: Medical Plan History of Present Illness The patient is a 74-year-old female presenting for a follow-up concerning her chronic conditions, including recent GERD episodes and musculoskeletal complaints. Her medical history includes hypertension, hypothyroidism, a past diagnosis of left breast cancer, hypercholesterolemia, and several musculoskeletal issues like degenerative disc disease and sacroiliac joint dysfunction. She previously sought evaluation for chest pain in September, attributed to GERD, and was treated with omeprazole which resulted in symptom improvement. Additionally, she encountered a viral respiratory infection, positively identified as COVID-19, leading to significant coughing that contributed to subsequent rib pain. The musculoskeletal pain is not persistent and was described as muscular. The patient manages it conservatively with Tylenol but feels it provides limited relief. Sleep disturbances persist, with the patient waking early and struggling to return to sleep, sometimes addressed with Tylenol PM and magnesium. Past maternal history of pancreatic cancer provoked anxiety regarding pancreatic health, but recent exams, including blood tests, showed no concerns. Health Maintenance - Last colonoscopy in 2018; planning future screening as appropriate. - Bone density screening performed in March 2022. - Mammogram up to date as of June 2024. - Blood count from September shows normal ranges, including no anemia, stable renal function, and mildly elevated blood glucose. - Patient received shingles vaccination and is due for tetanus vaccination, which was administered during this visit. - Considers further pneumonia vaccination unnecessary at this point given current status. - Encouraged continued use of omeprazole for GERD and amlodipine for blood pressure control. Social History - No specific social determinants discussed during the conversation to report. Review of Systems - General: Reports fatigue and disrupted sleep patterns. - Gastrointestinal: Denies active symptoms presently due to omeprazole management, past issues with GERD. - Musculoskeletal: Reports left-sided rib pain, inconsistent in nature. - Respiratory: Denies current cough; past severe cough related to COVID-19. - Neurological: Denies any cognitive difficulties. - Psychological: Reports sleep disturbances, waking during sleep without return. Physical Exam Results - Labs: Blood count from September was normal, with no anemia and normal renal function. - Tests and Diagnostics: LDL of 122 mg/dL, triglycerides of 155 mg/dL; recent mammogram from June 2024 noted to be up to date. Plan The treatment plan includes maintaining current medications: amlodipine for hypertension management, thyroid medication for hypothyroidism, and omeprazole for ongoing GERD treatment. We are targeting LDL cholesterol levels under 130 mg/dL and triglycerides below 150 mg/dL, with dietary and lifestyle adjustments as required. We will monitor left-sided rib discomfort through further diagnostics, which includes a rib x-ray and EKG, and consider it as muscular. Continued use of conservative pain management with Tylenol was recommended until further review. We ensured that the patient is current with screenings for breast health and osteoporosis risk with updated mammograms and bone density assessments. During this visit, a tetanus booster was given, and it was noted that she no longer requires immediate pneumonia vaccination. We discussed strategies to improve sleep hygiene and the judicious use of Tylenol PM and magnesium for sleep issues. We also addressed her family history concerns regarding pancreatic health and reassured her of the recent negative screening results. Patient was informed and verbally consented to the use of an ambient scribe for clinic note documentation during this visit. Discussion Notes I discussed the ongoing management of the patient's chronic conditions, including hypertension, hypothyroidism, and hypercholesterolemia. We reviewed her current symptoms and highlighted GERD management with omeprazole, addressing her musculoskeletal complaints conservative approach pending diagnostic imaging. I emphasized the continuity of care by keeping health maintenance on track, updating vaccinations with the tetanus booster, and maintaining current preventive screenings such as mammogram and bone density. A detailed explanation was given regarding the effectiveness of her current treatment regimens and follow-up concerning her cardiovascular risk factors. We considered her disrupted sleep patterns, opting against prescription sleep aids, focusing rather on lifestyle modifications and ensuring sufficient rest periods. The assurance was given concerning pancreatic concerns, with recent results demonstrating stability. All interventions were consented to during our dialogue. Patient Instructions - Continue taking amlodipine, thyroid medication, and omeprazole as prescribed. - Maintain a heart-healthy diet to manage cholesterol levels. - Use Tylenol for musculoskeletal pain as needed, and try magnesium or Tylenol PM cautiously for sleep disturbances. - Schedule rib x-ray and EKG as planned. - Follow up on bone health and mammogram as per current schedule. - Receive tetanus booster today; no immediate need for additional pneumonia vaccine. - Practice sleep hygiene techniques to improve rest. - Monitor any new or persistent symptoms and report back if necessary. Orders: Orders XR ribs LT min 3V w CXR1V Today R07.9 - Chest pain, unspecified ECG 12 lead EKG Today R07.9 - Chest pain, unspecified Td Immunization Today Z23 - Encounter for immunization
--- OUTSIDE RECORDS SUMMARY | 2024-11-21 11:20 | XMS_ITS ---
Author Organization [facility] Address [address] [place] [phone] Care Team Providers Care Field Reviewer Name Role Phone Laurence Gurrola MD Primary Care Provider Abran Liang [phone] REASON FOR VISIT rectal pain Problems Problem Type SNOMED Code ICD Code Onset Dates Problem Status W/U Status Risk Notes Problem Diarrhea (11132709) Diarrhea (R19.7) Active confirmed Encounters Encounter Location Date Provider Diagnosis [facility] [address] [place] [phone] 12/19/2023 Abran Jefferson Diarrhea R19.7 Assessments Encounter Date Diagnosis (ICD Code) Assessment Notes Treatment Notes Treatment Clinical Notes Section Notes 12/19/2023 Diarrhea (ICD-10 - R19.7) Plan Of Treatment Pending Test Test Name Order Date STOOL WBC 12/19/2023 C DIFFICILE RFLX PCR 12/19/2023 Calprotectin, Fecal 12/19/2023 GI PANEL 12/19/2023 Progress Notes * RETA ANDERSONB:[birth year] (73 yo F)Acc No.[id number]:12/19/2023 Patient:?YARITZA ANDERSON :1950???Age:73 Y???Sex:Female Address:[address] [place] [id number] Subjective: * Chief Complaints: * ???Rectal pain * Medical History:? * Surgical History:? * Hospitalization/Major Diagno stic Procedure:? * Medications:? Objective: Assessment: * Assessment: 1.?Diarrhea - R19.7 (Primary )? Plan: * Treatment: * Procedure Codes:? * true * Date:? Generated for Caterina obrien/Dionne/Tessy on:?11/21/2024 11:20 AM EDT
== END 2024-11-21 11:27 | disposition home or self-care (01) ==
LOC: HO.HMCH 10:37
PROVIDERS: PCP Internal Medicine; Visit Provider Internal Medicine
DX: I10 Essential (primary) hypertension (principal); E03.9 Hypothyroidism, unspecified; Z85.3 Personal history of malignant neoplasm of breast; E78.00 Pure hypercholesterolemia, unspecified; K21.9 Gastro-esophageal reflux disease without esophagitis; R07.9 Chest pain, unspecified; Z23 Encounter for immunization

== ENCOUNTER → 2024-11-21 10:36 | Outpatient (BNVA) | payer MEDICARE, SELFPAY | PROVIDERS: PCP Internal Medicine; Visit Provider Internal Medicine | DX: Z23 Encounter for immunization (principal); I10 Essential (primary) hypertension; E03.9 Hypothyroidism, unspecified; E78.00 Pure hypercholesterolemia, unspecified; K21.9 Gastro-esophageal reflux disease without esophagitis; R07.9 Chest pain, unspecified; Z85.3 Personal history of malignant neoplasm of breast | CPT/HCPCS: 90471; 90714; 99212 ==

== ENCOUNTER 2024-11-25 09:45 | Outpatient (REF) | payer MEDICARE, SELFPAY ==
--- NOTE | ~2024-11-25 | XR_ITS ---
EXAMINATION: XR RIBS 3 VIEWS MINIMUM WITH CHEST LEFT HISTORY: R07.9 - Chest pain, unspecified COMPARISON: Comparison is made with the prior examination of the chest dated 08/31/2020. FINDINGS: A single PA view of the chest and 3 views of the left ribs are submitted. The lungs are expanded and clear. There is no pleural effusion, pneumothorax, or pulmonary vascular congestion. The heart is normal in size. The left ribs are intact. No fracture is seen. XR/XR ribs LT min 3V w CXR1V IMPRESSION: No acute cardiopulmonary abnormality. No evidence of fracture of the left ribs. Electronically signed by: Abran Levy MD 11/25/2024 10:51 AM EDT
--- OUTSIDE RECORDS SUMMARY | 2024-11-25 10:56 | XMS_ITS ---
Author Organization [facility] Address [address] [place] [phone] Care Team Providers Care Surveillance Director Name Role Phone Laurence Gurrola MD Primary Care Provider Abran Liang [phone] REASON FOR VISIT rectal pain Problems Problem Type SNOMED Code ICD Code Onset Dates Problem Status W/U Status Risk Notes Problem Diarrhea (52246595) Diarrhea (R19.7) Active confirmed Encounters Encounter Location Date Provider Diagnosis [facility] [address] [place] [phone] 12/19/2023 Abran Jefferson Diarrhea R19.7 Assessments Encounter Date Diagnosis (ICD Code) Assessment Notes Treatment Notes Treatment Clinical Notes Section Notes 12/19/2023 Diarrhea (ICD-10 - R19.7) Plan Of Treatment Pending Test Test Name Order Date STOOL WBC 12/19/2023 C DIFFICILE RFLX PCR 12/19/2023 Calprotectin, Fecal 12/19/2023 GI PANEL 12/19/2023 Progress Notes * RETA ANDERSONB:[birth year] (73 yo F)Acc No.[id number]:12/19/2023 Patient:?YARITZA ANDERSON :1950???Age:73 Y???Sex:Female Address:[address] [place] [id number] Subjective: * Chief Complaints: * ???Rectal pain * Medical History:? * Surgical History:? * Hospitalization/Major Diagno stic Procedure:? * Medications:? Objective: Assessment: * Assessment: 1.?Diarrhea - R19.7 (Primary )? Plan: * Treatment: * Procedure Codes:? * true * Date:? Generated for Caterina obrien/Dionne/Tessy on:?11/25/2024 10:56 AM EDT
== END 2024-11-25 09:46 | disposition home or self-care (01) ==
LOC: HO.HMGCX 09:45
PROVIDERS: PCP Internal Medicine; Visit Provider Internal Medicine
DX: R07.9 Chest pain, unspecified (principal)
CPT/HCPCS: 71101

== ENCOUNTER → 2024-11-25 09:49 | Outpatient (BNV) | payer MEDICARE, SELFPAY | PROVIDERS: PCP Internal Medicine; Visit Provider Radiology Diagnostic Radiology | DX: R07.9 Chest pain, unspecified (principal) | CPT/HCPCS: 71101 ==

== ENCOUNTER → 2024-11-26 10:48 | Outpatient (REF) | payer MEDICARE, SELFPAY ==
--- NOTE | 2024-11-26 11:00 | ECG_ITS ---
Test Reason : CHEST AIN Blood Pressure : */* mmHG Vent. Rate : 70 BPM Atrial Rate : 70 BPM P-R Int : 174 ms QRS Dur : 70 ms QT Int : 420 ms P-R-T Axes : 63 9 49 degrees QTcB Int : 453 ms Normal sinus rhythm Nonspecific ST and T wave abnormality Borderline ECG When compared with ECG of 28-Feb-2008 10:03, No significant changes seen Referred By: Laurence Gurrola Electronically Signed By: MOHINI SOTO
--- OUTSIDE RECORDS SUMMARY | 2024-11-26 11:37 | XMS_ITS ---
Author Organization [facility] Address [address] [place] [phone] Care Team Providers Care Dual Rate Dealer Name Role Phone Laurence Gurrola MD Primary Care Provider Abran Liang [phone] REASON FOR VISIT rectal pain Problems Problem Type SNOMED Code ICD Code Onset Dates Problem Status W/U Status Risk Notes Problem Diarrhea (78551853) Diarrhea (R19.7) Active confirmed Encounters Encounter Location Date Provider Diagnosis [facility] [address] [place] [phone] 12/19/2023 Abran Jefferson Diarrhea R19.7 Assessments Encounter Date Diagnosis (ICD Code) Assessment Notes Treatment Notes Treatment Clinical Notes Section Notes 12/19/2023 Diarrhea (ICD-10 - R19.7) Plan Of Treatment Pending Test Test Name Order Date STOOL WBC 12/19/2023 C DIFFICILE RFLX PCR 12/19/2023 Calprotectin, Fecal 12/19/2023 GI PANEL 12/19/2023 Progress Notes * RETA ANDERSONB:[birth year] (73 yo F)Acc No.[id number]:12/19/2023 Patient:?YARITZA ANDERSON :1950???Age:73 Y???Sex:Female Address:[address] [place] [id number] Subjective: * Chief Complaints: * ???Rectal pain * Medical History:? * Surgical History:? * Hospitalization/Major Diagno stic Procedure:? * Medications:? Objective: Assessment: * Assessment: 1.?Diarrhea - R19.7 (Primary )? Plan: * Treatment: * Procedure Codes:? * true * Date:? Generated for Caterina obrien/Dionne/Tessy on:?11/26/2024 11:37 AM EDT
== END ==
LOC: HO.CARD 10:48
PROVIDERS: PCP Internal Medicine; Visit Provider Internal Medicine
DX: R07.9 Chest pain, unspecified (principal)
CPT/HCPCS: 93005

== ENCOUNTER → 2024-11-26 11:00 | Outpatient (BNV) | payer MEDICARE, SELFPAY | PROVIDERS: PCP Internal Medicine; Visit Provider Internal Medicine | DX: R07.9 Chest pain, unspecified (principal) | CPT/HCPCS: 93010 ==

== ENCOUNTER 2025-02-12 08:38 | Outpatient (AMB) | payer MEDICARE, SELFPAY ==
[2025-02-12 08:56] VITALS: BP 136/68; PULSE 83; O2SAT 97; BMI 23.4
--- NOTE | 2025-02-12 08:59 | A.OFFVIS_ITS ---
Intake Vital Signs 02/12/25 08:56 02/12/25 09:06 Height 5 ft 3 in Weight 132 lb 2 oz BMI 23.4 23.4 BP 136/68 Blood Pressure Location Lt brachial Position Sitting Pulse 83 Pulse Source Pulse Oximeter Pulse Oximetry (%) 97 Oxygen Delivery Method Room Air Intake Visit Reasons: SWRyan [id number] Lace Roller Required: No Accompanied by: Self / Same As Patient Allergies [id number]-OkS Reductase Inhibitor ([id number]-GLU REDUCTASE INHIBITOR) Allergy (Mild, Verified 02/12/25 08:55) ACHY atorvastatin (From Lipitor) Allergy (Unknown, Verified 02/12/25 08:55) Muscle Pain ciprofloxacin (Cipro) Allergy (Unknown, Verified 02/12/25 08:55) Anaphylaxis metronidazole Allergy (Unknown, Verified 02/12/25 08:55) anaphylaxis rosuvastatin (From Crestor) Allergy (Unknown, Verified 02/12/25 08:55) Muscle Pain simvastatin Allergy (Unknown, Verified 02/12/25 08:55) Muscle Pain Sulfa (Sulfonamide Antibiotics) Allergy (Unknown, Verified 02/12/25 08:55) diarrhea sulfamethoxazole (From Bactrim) Allergy (Unknown, Verified 02/12/25 08:55) Unknown trimethoprim (From Bactrim) Allergy (Unknown, Verified 02/12/25 08:55) Unknown hydrochlorothiazide Adverse Reaction (Intermediate, Verified 02/12/25 08:55) myalgia lisinopril Adverse Reaction (Intermediate, Verified 02/12/25 08:55) Cough omeprazole Adverse Reaction (Intermediate, Unverified 02/12/25 09:16) Nausea SEASONAL ALLERGIES Allergy (Intermediate, Uncoded 01/06/25 09:15) ITCHING Medication List - Last Reconciled 02/12/25 by Laurence Gurrola MD amlodipine 5 mg PO DAILY calcium carbonate-vitamin D3 600 mg-5 mcg (200 unit) (Calcium 600 + D(3)) 1 cap PO DAILY cetirizine 10 mg PO DAILY ezetimibe (Zetia) 10 mg PO DAILY fluticasone propionate 50 mcg/actuation 2 sprays intranasal DAILY ketoconazole 2% 1 appl topical 2XW levothyroxine 75 mcg PO QAM 90 days magnesium 250 mg PO DAILY [mastectomy bra (left) As directed] multivitamin 1 tab PO DAILY prosthetics As directed raloxifene 60 mg orally Saccharomyces boulardii (Daily Probiotic (S. boulardii)) 250 mg PO DAILY HPI SWV G0439 HPI Details [facility] Dr. Marci madison [place] [facility] [facility] Medical History (Updated 02/12/25 @ 09:09 by Laurence Gurrola MD) Contusion of leg, left Left shoulder pain Shoulder pain, right Sacroiliitis Acute respiratory disease Abdominal pain IBS (irritable bowel syndrome) Left-sided chest pain Intermittent left-sided chest pain Sacroiliac joint dysfunction of left side Breast density Adult general medical exam Chest tightness Shortness of breath Drug allergy, antibiotic Diverticular disease Irritable bowel syndrome Pulmonary nodule Insomnia Anxiety Family history of pancreatic cancer Family history of malignant neoplasm of endometrium Hypercholesterolemia History of left breast cancer Hypothyroidism Hypertension Surgical History History of cataract surgery History of colonoscopy History of tonsillectomy History of left mastectomy History of laparoscopy Family History Father History of cirrhosis Lung cancer Mother Pancreatic cancer CVD (cardiovascular disease) Hypertension Sister History of endometrial cancer Brother No problems noted. 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) Cognitive needs: No Hearing needs: No Vision needs: Yes (Reading glasses) Female Reproductive History Menstrual Age of Menarche: 14 Date of menopause: 06/25/02 Questionnaire Medicare Wellness Checkup What [age] What gender do you identify with?: female During the past 4 weeks, how much have you been bothered by emotional problems such as feeling anxious, depressed, irritable, sad or downhearted, and blue?: not at all During the past 4 weeks, has your physical & emotional health limited your social activities with family, friends, neighbors, or groups?: not at all During the past 4 weeks, how much bodily pain have you generally had?: mild pain During the past 4 weeks, was someone available to help you if you needed & wanted help?: yes, as much as I wanted During the past 4 weeks, what was the hardest physical activity you could do for at least 2 minutes?: heavy Can you get to places out of walking distance without help? (For eg., can you travel alone on buses, taxis or drive your car?): Yes Can you go shopping for groceries or clothes without someone's help?: Yes Can you prepare your own meals?: Yes Can you do your housework without help?: Yes Because of any health problems, do you need the help of another person with your personal care needs such as eating, bathing, dressing or getting around the house?: Yes Can you handle your own money without help?: Yes During the past 4 weeks, how would you rate your health in general?: very good During the past 4 weeks how have things been going for you?: pretty well Are you having difficulties driving your car?: no Do you always fasten your seat belt when you are in a car?: yes, usually During past 4 weeks, have you been bothered by the following: never: Sexual problems?, Teeth or denture problems? and Problems using the telephone? and seldom: Falling or dizzy when standing up, Trouble eating well? and Tiredness or fatigue? Have you fallen 2 or more times in the past year?: No Are you afraid of falling?: No Are you a smoker?: no During the past 4 weeks, how many drinks of wine, beer, or other alcoholic beverages did you have?: 1 drink or less per week Do you exercise for about 20 minutes 3 or more times a week?: yes, most of the time Have you been given information to help with the following?: no: Hazards in your house that might hurt you? and no: Keeping track of your medications? How often do you have trouble taking medicines the way you have been told to take them?: I always take medicine as prescribed How confident are you that you can control & manage most of your health problems?: very confident What is your race?: White PHQ-9 Over the last 2 weeks, how often have you been bothered by any of the following problems? 1. Little interest or pleasure in doing things: not at all 2. Feeling down, depressed, or hopeless: not at all 3. Trouble falling or staying asleep, or sleeping too much: several days 4. Feeling tired or having little energy: not at all 5. Poor appetite or overeating: not at all 6. Feeling bad about yourself - or that you are a failure or have let yourself or your family down: not at all 7. Trouble concentrating on things, such as reading the newspaper or watching television: not at all 8. Moving or speaking so slowly that other people could have noticed. Or the opposite - being so fidgety or restless that you have been moving around a lot more than usual: not at all 9. Thoughts that you would be better off or of hurting yourself in some way: not at all Total score: 1 86364 - PHQ-9 Billing: Yes Source: Developed by Drs. Abran Lizama, Emilee Philippe, Mansoor Rivas and colleagues, with an educational smith from [employer]. Review of Systems Const Denies poor appetite and Denies weakness Eyes Denies no additional complaints ENT Reports Normal hearing present, Denies dizziness, Denies nasal congestion, Denies tinnitus and Denies sore throat Card Denies chest pain, Denies syncope, Denies rapid heart rate and Denies dyspnea Resp Denies cough and Denies dyspnea GI Denies change in stool character, Reports constipation, Denies diarrhea, Denies nausea and Denies vomiting Denies urinary frequency, Denies difficulty voiding and Denies dysuria Neuro Reports Normal hearing present, Denies confusion, Denies dizziness, Denies syncope and Denies weakness Psych Denies confusion Physical Exam Vital Signs: Last Vital Signs Pulse 83 02/12/25 08:56 BP 136/68 02/12/25 08:56 Pulse Ox 97 02/12/25 08:56 Oxygen Delivery Method Room Air 02/12/25 08:56 BMI result Body Mass Index 23.4 Const General: alert and awake; No confusion Orientation/consciousness: No confusion HEENT Head: Yes normocephalic Ears: external ears normal and TM's normal bilaterally Face and sinus: Yes normal facial exam Mouth: moist mucous membranes Throat: Yes tonsils normal Eyes Conjunctivae: conjunctivae normal Pupils: Equal, round and reactive pupils present and Pupil accommodation reflex normal Direct Ophthalmoscopy: normal light reflex Neck Neck: No lymphadenopathy Thyroid: Thyroid normal Chest Chest palpation & inspection: normal inspection of the chest Resp Effort & Inspection: normal respiratory effort and no audible wheezes Auscultation: clear to auscultation bilaterally, no crackles, no wheezes and lung sounds not diminished Cardio Rate: regular rate Rhythm: regular rhythm Peripheral pulses: radial pulses present and dorsalis pedis present GI Other: guaiac negative Palpation (GI): no masses Auscultation: normal bowel sounds and normoactive bowel sounds Skin General skin exam: no rashes or lesions noted Rashes: no rashes Neuro General: deep tendon reflexes 2+ bilaterally and No confusion Cranial nerves: Yes Equal, round and reactive pupils present, Yes Midline tongue present, Yes Normal hearing present and Yes Ability to bilaterally elevate shoulders present Cognition (Neuro): normal cognition Gait exam (Neuro): Normal gait present Motor exam (neuro): 5/5 motor strength present throughout Deep tendon reflexes (DTR's): Right brachioradialis reflex intensity grade: 2+, Left brachioradialis reflex intensity grade: 2+, Right patellar reflex intensity grade: 2+ and Left patellar reflex intensity grade: 2+ Extrem General: No edema Assessment & Plan Assessment & Plan (1) Medicare annual wellness visit, subsequent: Code(s): Z00.00 - Encounter for general adult medical examination without abnormal findings Plan: Patient is advised to eat healthy, keep well hydrated, keep active and have adequate sleep. (2) Hypertension: Code(s): I10 - Essential (primary) hypertension Qualifiers: Hypertension type: essential hypertension Qualified Code(s): I10 - Essential (primary) hypertension Plan: Continue with blood pressure medication. Decrease salt intake and exercise patient on amlodipine 5 mg once a day (3) Hypercholesterolemia: Comment: Statin intolerance Code(s): E78.00 - Pure hypercholesterolemia, unspecified Plan: Avoid fried foods, chicken skin, eggs, butter margarine, pastries and meat. Be it pork or beef they have a lot of cholesterol LDL goal of less than 130 and triglyceride of less than 150 patient on Zetia. Statin intolerant (4) Hypothyroidism: Comment: History of Maia's Code(s): E03.9 - Hypothyroidism, unspecified Qualifiers: Hypothyroidism type: acquired Qualified Code(s): E03.9 - Hypothyroidism, unspecified Plan: Continue with thyroid medication will request for testing (5) Osteopenia: Code(s): M85.80 - Other specified disorders of bone density and structure, unspecified site Plan: Up-to-date February 2024 calcium and vitamin-D (6) GERD (gastroesophageal reflux disease): Code(s): K21.9 - Gastro-esophageal reflux disease without esophagitis Plan: Avoid the foods that causes that usually spicy foods, tomato products, juices, coffee, soda and foods that your sensitive to. After eating do not lie down, allow 3-4 hours before in lie down. And keep the head of bed above 30 degrees to avoid the acid from going up. (7) History of left breast cancer: Comment: Mammogram June 2023 Code(s): Z85.3 - Personal history of malignant neoplasm of breast Plan: Continue to follow-up with Hematology-Oncology and the the surgeon. Mammogram next year Plan History of Present Illness The patient is a 75-year-old female presenting for an annual wellness visit. She has a history of hypertension, managed with amlodipine 5 mg daily, and hypothyroidism, for which she takes thyroid medication at 75 mcg. Her blood pressure is reported to be well-controlled, and recent thyroid function tests were within normal limits. The patient has a history of left breast cancer diagnosed in 2001, and she continues to follow up with hematology oncology. Her last mammogram was in June, and she is scheduled for another next year. She has hypercholesterolemia with an LDL of 122 mg/dL and triglycerides of 155 mg/dL as of March 2024. The patient is statin intolerant and is currently on Zetia to manage her cholesterol levels. The patient reports osteopenia, with the last bone density test conducted in May 2022. She is on Raloxifene and supplements with calcium and vitamin D. She has lumbar degenerative disc disease, which affects her ability to walk long distances, leading her to use a golf cart instead of walking the course. Recent blood work showed normal blood counts, electrolytes, and liver function, but an elevated blood glucose level of 109 mg/dL. Her vitamin D, folic acid, and thyroid levels were within normal limits. The patient engages in regular physical activity, including playing golf several times a week, and reports rare alcohol consumption and no tobacco use. Health Maintenance - Vaccinations: Received COVID-19 and shingles vaccinations - Screening: Mammogram in June, colonoscopy last done in 2019, bone density due - Lifestyle: Engages in regular physical activity, including golf, and maintains a healthy diet Social History - Exercise: Regularly plays golf, using a cart due to back issues - Alcohol: Consumes alcohol rarely, approximately one beer per month - Tobacco: No current use, past experimentation in college - Diet: Attempts to eat healthily, with occasional indulgence in baked goods Review of Systems - Cardiovascular: Denies chest pain, orthopnea, or syncope - Respiratory: Denies dyspnea, cough, or wheezing - Gastrointestinal: Reports occasional heartburn with spicy foods, denies nausea, vomiting, or diarrhea - Neurological: Denies dizziness, headaches, or balance issues - Musculoskeletal: Reports lower back pain, denies joint pain or stiffness - Genitourinary: Reports increased frequency of urination, denies dysuria or hematuria - Endocrine: Denies symptoms of thyroid dysfunction Physical Exam General: Cooperative, healthy appearing, comfortable, no acute distress and well developed Orientation: Patient oriented x3 Limitations: No limitations Head: Normal to inspection Ears: Hearing grossly normal bilaterally Nose: Normal external nose present Face and sinus: Normal facial exam Eyes: Appearance normal, both eyes and all related structures Neck: Normal visual inspection and Yes full ROM Respiratory: Normal respiratory effort and able to speak in complete sentences. Clear to auscultation bilaterally Cardiovascular: Regular rate and rhythm. Normal S1 and S2 GI: Normal to inspection. Soft to palpation and nontender Skin: No rashes or lesions noted Neuro: Patient oriented x3 Extremities: Normal to inspection Results - Labs: Normal blood count, normal electrolytes, elevated blood glucose at 109 mg/dL - Tests: Normal EKG showing sinus rhythm - Screening: Mammogram in June, colonoscopy last done in 2019 Plan The patient will continue her current regimen of amlodipine for hypertension and thyroid medication, with regular monitoring of blood pressure and thyroid function tests. For hypercholesterolemia, she will remain on Zetia due to statin intolerance, with a goal to maintain LDL levels below 130 mg/dL and triglycerides below 150 mg/dL. Osteopenia management includes continuation of Raloxifene and supplementation with calcium and vitamin D, with a bone density test scheduled for the future. The patient is advised to maintain her physical activity and dietary habits to support bone health. She will continue follow-up with hematology oncology for her history of breast cancer, with the next mammogram scheduled for June next year. Regular monitoring of blood glucose levels is recommended due to the recent elevation. Patient was informed and verbally consented to the use of an ambient scribe for clinic note documentation during this visit. Discussion Notes During the visit, I discussed with the patient the importance of continuing her current medications for hypertension and hypothyroidism, emphasizing regular monitoring of her blood pressure and thyroid levels. We reviewed her cholesterol management plan, noting her intolerance to statins and the use of Zetia to achieve her lipid goals. I advised her on the management of osteopenia, including the continuation of Raloxifene and calcium and vitamin D supplementation, and the importance of regular bone density testing. We also discussed her follow-up care with hematology oncology for her breast cancer history and the scheduling of her next mammogram. I highlighted the need for regular monitoring of her blood glucose levels due to the recent elevation and encouraged her to maintain her physical activity and dietary habits. Patient Instructions - Continue taking amlodipine and thyroid medication as prescribed. - Maintain current cholesterol management with Zetia. - Continue Raloxifene and supplements for bone health. - Schedule and attend the next mammogram in June. - Monitor blood glucose levels regularly. - Engage in regular physical activity and maintain a healthy diet. Orders: Orders Complete Blood Count Auto Diff Today E78.00 - Pure hypercholesterolemia, unspecified Comprehensive Met. Panel Today E78.00 - Pure hypercholesterolemia, unspecified Free T4 (Free Thyroxine) Today E78.00 - Pure hypercholesterolemia, unspecified Lipid Panel Today E78.00 - Pure hypercholesterolemia, unspecified Hemoglobin A1c Today E78.00 - Pure hypercholesterolemia, unspecified Vitamin B12 and Folate Today E78.00 - Pure hypercholesterolemia, unspecified UA CC w/rflx Micro + Cult Today E78.00 - Pure hypercholesterolemia, unspecified, R30.0 - Dysuria Magnesium Today E78.00 - Pure hypercholesterolemia, unspecified Thyroid Stimulating Hormone Today E78.00 - Pure hypercholesterolemia, unspecified Vitamin D 25-OH Total Today E78.00 - Pure hypercholesterolemia, unspecified Quality Reporting (2019) Depression/Bipolar (159/160/161/177) PHQ-9: Total score: 1 Coding Level of Care Code Medicare Subsequent (G0439) Diagnoses Medicare annual wellness visit, subsequent Z00.00 Essential hypertension I10 Hypertension type: essential hypertension Hypercholesterolemia E78.00 Acquired hypothyroidism E03.9 Hypothyroidism type: acquired Osteopenia M85.80 GERD (gastroesophageal reflux disease) K21.9 History of left breast cancer Z85.3 Additional Codes PHQ-9 - 41311 - PHQ-9 Billing: Yes ([id number])
[2025-02-12 09:06] VITALS: BMI 23.4
--- OUTSIDE RECORDS SUMMARY | 2025-02-12 09:37 | XMS_ITS | Clinical Summary ---
Author Organization [facility] Address [address] [place] [address] Phone Care Team Providers Care After School Driver Name Role Phone Laurence Gurrola MD Primary Care Provider [phone] Allergies Active Allergy Reactions Criticality Noted Date Comments Other 10/23/2017 All statins, enviromental Penicillin 12/21/2016 Other reaction(s): Unknown Shellfish 12/21/2016 Other reaction(s): Unknown Medications raloxifene (EVISTA) 60 mg tablet Take 1 tablet by mouth daily. Active fluticasone propionate (FLONASE) 50 mcg/actuation nasal spray 1 spray in each nostril Nasally Once a day Active Medication-Free Text Flonase 50 MCG/DOSE Inhaler, Si spray in each nostril Nasally Once a day Active Medication-Free Text Calcium + D Active cholecalciferol , vitamin D3, (VITAMIN D3) 400 unit capsule Orally Active docusate sodium (COLACE) 100 MG capsule Take 1 capsule by mouth daily as needed. Active levothyroxine (SYNTHROID) 75 MCG tablet Take 1 tablet by mouth every morning. on an empty stomach Active ezetimibe (ZETIA) 10 mg tablet Take 1 tablet by mouth daily. Active bacillus coagulans-inuli n 1 billion-250 cell-mg Cap Take 250 mg by mouth daily. Active Active Problems No known active problems Family History Medical History Relation Comments Lung cancer Father Angina Mother Pancreatic cancer Mother Endometrial cancer Sister Relation Status Comments Father Mother Sister Social History Tobacco Use Types Packs/Day Years Used Date Smoking Tobacco: Never Smokeless Tobacco: Never Alcohol Use Standard Drinks/Week Comments Yes 3 (1 standard drink = 0.6 oz pur e alcohol) weekly Education Answer Date Recorded Are you interested in more education? Not on ryan e 10/20/2022 Are you concerned about learning? Not on file 10/20/2022 No 10/20/2022 No 10/20/2022 Digital Access Answer Date Recorded No 11/18/2022 No 11/18/2022 Reliable internet access at home? Not on file 11/18/2022 Device with a working camera? Not on file Comments No Sex and Gender Information Value Date Recorded Sex Assigned at Not on file Legal Sex Female 10:01 PM EDT Gender Identity Not on file Sexual Orientation Not on file Occupation Industry Job Start Date Job End Date [employer]-- [employer] Not on file Not on file No t on file Last Filed Vital Signs Vital Sign Reading Time Taken Comments Blood Pressure 152/78 06/12/2019 8:52 AM EST Pulse 74 12/21/2016 9:02 AM EDT Temperature - - Respiratory Rate - - Oxygen Saturation - - Inhaled Oxygen Concentration - - Weight 56.2 kg (124 lb) 06/12/2019 8:52 AM EST Height 161.3 cm (5' 3.5 ) 06/12/2019 8:52 AM EST Body Mass Index 21.62 06/12/2019 8:52 AM EST Plan of Treatment Health Maintenance Due Date Last Done Comments Adult Td,Tdap Booster 1951 LIPID PANEL 1951 TSH LEVEL 1951 DEPRESSION SCREENING 1963 HEPATITIS C SCREENING 1969 COLOGUARD 01/03/1996 COLONOSCOPY 01/03/1996 COLORECTAL CANCER SCREENING 01/03/1996 FIT TEST 01/03/1996 FOBT 01/03/1996 SIGMOIDOSCOPY 01/03/1996 VIRTUAL COLONOSCOPY 01/03/1996 ZOSTER VACCINES (1 of 2) 2001 OSTEOPOROSIS SCREENING INITIAL (ONE-TIME) 01/03/2016 MAMMOGRAM 06/03/2022 06/03/2020 COVID-19 VACCINE ( season) 2024 09/16/2020, 08/19/2020 RSV VACCINE (1 - 1-dose 75+ series) 2026 PNEUMOCOCCAL VACCINES (50+ years) Completed 06/05/2017, 04/24/2017, 07/03/2016, Additional history exists SMOKING STATUS SCREENING (Once After 26 Yrs) Completed 06/12/2019 HEPATITIS A VACCINES Aged Out No long er eligible based on patient's age to complete this topic HIB VACCINES Aged Out No longer eligi ble based on patient's age to complete this topic MENINGOCOCCAL VACCINES (ACWY) Aged Out No longer eligible based on patient's age to complete this topic MENINGOCOCCAL VACCINES (B) Aged Out N o longer eligible based on patient's age to complete this topic Medical Devices Not on file Procedures Procedure Name Priority Date/Time Associated Diagnosis Comments MAMMOGRAPHY Routine 06/03/2020 from Last 3 Months or Most Recently Relevant to Health Maintenance Results * MAMMOGRAPHY FOR RESULT ENTRY ONLY (06/03/2020) Laurence Gurrola MD HEALTH MAINTENANCE Edited Res ult - Final from Last 3 Months or Most Recently Relevant to Health Maintenance Insurance MEDICARE PART A & B [place] MED[employer] SUPPLEMENT MEDICARE PART A & B [employer] MEDEX SUPPLEMENT MEDICARE PART A & B [place] MEDEX SUPPLEMENT MEDICARE PART A & B [place] MEDEX SUPPLEMENT MEDICARE PART A & B [place] MEDEX SUPPLEMENT MEDICARE PART A & B [place] MEDEX SUPPLEMENT MEDICARE PART A & B [place] MEDEX SUPPLEMENT MEDICARE PART A & B [facility] MEDEX SUPPLEMENT MEDICARE PART A & B [employer] MEDEX SUPPLEMENT Care Teams After School Driver Relationship Specialty Start Date End Date Laurence Gurrola MD [address] [place] [address] PCP - General 04/09/17 Additional Source Comments The information contained in this document represents components of the legal health record. It is not the complete legal health record.[facility]
--- OUTSIDE RECORDS SUMMARY | 2025-02-12 09:37 | XMS_ITS | Patient Health Record ---
Author Organization [facility] Address [address] [place] [address] Care Team Providers Care Manager Global Communications Name Role Phone Laurence Gurrola MD Primary Care Provider Abran Liang [phone] Allergies Allergen (clinical drug ingredient) Drug/Non Drug Allergy documented on EMR Reaction Allergy Type Onset Date Status Substance with sulfonamide structure and antibacterial mechanism of action (substance) Sulfa Antibiotics Unknown Drug Allergy Active lisinopril Lisinopril Unknown Drug Allergy Activ e Penicillin Unknown Drug Allergy Active ciprofloxacin Cipro Unknown Drug Allergy Act ritu Substance with 0-sooyoaz-4-methylgluta ryl-coenzyme A reductase inhibitor mechanism of action [...] Problem Screening for malignant neoplasm of colon (281720159) Encounter for screening for malignant neoplasm of colon (Z12.11) Active confirmed Problem Diarrhea (27634206) Diarrhea (R19.7) Active confirmed Problem 38620754 Weight loss (R63.4) Active confirmed Problem Irritable bowel syndrome with diarrhea (977027301) Irritable bowel syndrome with diarrhea (K58.0) Active confirmed Problem Rectal pain (98644558) Rectal pain (K62.89) Active confirmed Problem 16357647 Diarrhea, unspecified type (R19.7) Active confirmed Problem 16367916 Other irritable bowel syndrome (K58.8) Active confirmed Problem 95987513 Irritable bowel syndrome with both constipation and diarrhea (K58.2) Active confirmed Problem 77666736 Change in bowel function (R19.8) Active confirmed Plan Of Treatment Pending Test Test Name [...] MEDICARE OF [place] [address] [place] [address] [phone] [id number] YARITZA AVINA Self - patient is the insured MEDEX ATTN CLAIMS [address] [place] [phone] [id number] YARITZA AVINA Self - patient is the insured Medical (General) History Medical History History ICD Code Colon and EGD 05-11-2003--co lonoscopy was normal other than occasional diverticulosis and small internal hemorrhoids, and the upper endoscopy was normal as well, including duodenal biopsies Hypothyroid Elevated cholesterol Denies [place],DM,CVA,Lung disease,renal dise ase Breast cancer as below [...]
== END 2025-02-12 09:34 | disposition home or self-care (01) ==
LOC: HO.HMCH 08:39
PROVIDERS: PCP Internal Medicine; Visit Provider Internal Medicine
DX: Z00.00 Encounter for general adult medical examination without abnormal findings (principal); I10 Essential (primary) hypertension; E78.00 Pure hypercholesterolemia, unspecified; E03.9 Hypothyroidism, unspecified; M85.80 Other specified disorders of bone density and structure, unspecified site; K21.9 Gastro-esophageal reflux disease without esophagitis; Z85.3 Personal history of malignant neoplasm of breast

== ENCOUNTER → 2025-02-12 08:38 | Outpatient (BNVA) | payer MEDICARE, SELFPAY | PROVIDERS: PCP Internal Medicine; Visit Provider Internal Medicine | DX: Z00.00 Encounter for general adult medical examination without abnormal findings (principal); I10 Essential (primary) hypertension; E78.00 Pure hypercholesterolemia, unspecified; E03.9 Hypothyroidism, unspecified; M85.80 Other specified disorders of bone density and structure, unspecified site; K21.9 Gastro-esophageal reflux disease without esophagitis; Z85.3 Personal history of malignant neoplasm of breast | CPT/HCPCS: 96127 ==

== ENCOUNTER 2025-02-17 08:58 | Outpatient (AMB) | payer MEDICARE, SELFPAY ==
[2025-02-17 09:01] VITALS: BP 122/62; BMI 23.0
--- NOTE | 2025-02-17 09:01 | A.OFFVIS_ITS ---
Vital Signs 02/17/25 09:01 Height 5 ft 3 in Weight 130 lb BMI 23.0 BP 122/62 Blood Pressure Location Lt brachial Position Sitting Intake Visit Reasons: Yearly Breast Exam Intake Note: Patient is seen in office for yearly breast exam. 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: No Allergies Xpjeifo-WYS-AbK Reductase Inhibitor (SXSIUGD-NPI-FTF REDUCTASE INHIBITOR) Allergy (Mild, Verified 02/17/25 09:06) ACHY atorvastatin (From Lipitor) Allergy (Unknown, Verified 02/17/25 09:06) Muscle Pain ciprofloxacin (Cipro) Allergy (Unknown, Verified 02/17/25 09:06) Anaphylaxis metronidazole Allergy (Unknown, Verified 02/17/25 09:06) anaphylaxis rosuvastatin (From Crestor) Allergy (Unknown, Verified 02/17/25 09:06) Muscle Pain simvastatin Allergy (Unknown, Verified 02/17/25 09:06) Muscle Pain Sulfa (Sulfonamide Antibiotics) Allergy (Unknown, Verified 02/17/25 09:06) diarrhea sulfamethoxazole (From Bactrim) Allergy (Unknown, Verified 02/17/25 09:06) Unknown trimethoprim (From Bactrim) Allergy (Unknown, Verified 02/17/25 09:06) Unknown hydrochlorothiazide Adverse Reaction (Intermediate, Verified 02/17/25 09:06) myalgia lisinopril Adverse Reaction (Intermediate, Verified 02/17/25 09:06) Cough omeprazole Adverse Reaction (Intermediate, Unverified 02/17/25 09:06) Nausea SEASONAL ALLERGIES Allergy (Intermediate, Uncoded 02/17/25 09:06) ITCHING Medication List - Last Reconciled 02/17/25 by Beltran Hawk, RN amlodipine 5 mg PO DAILY calcium carbonate-vitamin D3 600 mg-5 mcg (200 unit) (Calcium 600 + D(3)) 1 cap PO DAILY cetirizine 10 mg PO DAILY ezetimibe (Zetia) 10 mg PO DAILY fluticasone propionate 50 mcg/actuation 2 sprays intranasal DAILY ketoconazole 2% 1 appl topical 2XW levothyroxine 75 mcg PO QAM 90 days magnesium 250 mg PO DAILY [mastectomy bra (left) As directed] multivitamin 1 tab PO DAILY prosthetics As directed raloxifene 60 mg orally Saccharomyces boulardii (Daily Probiotic (S. boulardii)) 250 mg PO DAILY HPI Comments Details: 75-year-old female patient, previous patient of Dr. Yuan returning for a y early breast examination. She feels well and denies any new breast symptoms on either side. She has a history of left breast cancer diagnosed in 02/2002 and underwent a left simple mastectomy with sentinel node biopsy. This was followed by AC chemotherapy. She was initially placed on tamoxifen but later switched to Arimidex due to vaginal bleeding 1 year later. This was later switched to letr ozole and Aromasin due to intolerable joint symptoms. Her last mammogram of 07/02/2024 revealed no mammographic evidence of malignancy (BI-RADS 1). She underwent a genetic testing which revealed no deleterious mutations and no variance of uncertain significance. She reports feeling well and denies any new or ongoing breast symptoms. She was mainly complaining of seasonal allergies especially while golfing. [facility] Medical History Contusion of leg, left Left shoulder pain Shoulder pain, right Sacroiliitis Acute respiratory disease Abdominal pain IBS (irritable bowel syndrome) Left-sided chest pain Intermittent left-sided chest pain Sacroiliac joint dysfunction of left side Breast density Adult general medical exam Chest tightness Shortness of breath Drug allergy, antibiotic Diverticular disease Irritable bowel syndrome Pulmonary nodule Insomnia Anxiety Family history of pancreatic cancer Family history of malignant neoplasm of endometrium Hypercholesterolemia History of left breast cancer Hypothyroidism Hypertension Surgical History History of cataract surgery History of colonoscopy History of tonsillectomy History of left mastectomy History of laparoscopy Family History Father History of cirrhosis Lung cancer Mother Pancreatic cancer CVD (cardiovascular disease) Hypertension Sister History of endometrial cancer Brother No problems noted. 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 Incision is clean and intact without subcutaneous masses or enlarged lymph nodes. No skin ulceration or discharge. Right breast reveals no skin change, nipple discharge, palpable mass, enlarged lymph node. No evidence of recurrence disease. Resp Effort & Inspection: normal respiratory effort Skin General skin exam: no rashes or lesions noted Neuro General: patient oriented x3 Extrem General: Yes no clubbing, cyanosis or edema Assessment & Plan Assessment & Plan (1) History of left breast cancer: Comment: Mammogram June 2023 Code(s): Z85.3 - Personal history of malignant neoplasm of breast Category: Social Hx Plan 75-year-old female patient returning for a routine annual breast cancer follow- up after a left breast mastectomy and axillary sentinel node biopsy in 02/2002. She feels well and denies any ongoing breast symptoms. Examination today reveals no suspicious findings and a well-healed mastectomy incision on the left side. Her most recent mammogram was in 07/02/2024 revealed no significant changes from the prior mammogram (BI-RADS 1). She is due for a follow-up mammogram in June 2024 and will return in 1 year for follow-up examination. Medications: Refilled prosthetics As directed 1 ea 0RF LEFT BREAST PROSTHETIC Z85.3 - Personal history of malignant neoplasm of breast prosthetics As directed 1 ea 0RF LEFT BREAST PROSTHETIC Z85.3 - Personal history of malignant neoplasm of breast Coding Level of Care Code Est Pt Level 3 (06285) Complex EM visit Add On G2211 Diagnoses History of left breast cancer Z85.3
--- OUTSIDE RECORDS SUMMARY | 2025-02-17 09:19 | XMS_ITS | Patient Health Record ---
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 Name Role Phone Laurence Gurrola MD Primary Care Provider Abran Liang [phone] Allergies Allergen (clinical drug ingredient) Drug/Non Drug Allergy documented on EMR Reaction Allergy Type Onset Date Status Substance with sulfonamide structure and antibacterial mechanism of action (substance) Sulfa Antibiotics Unknown Drug Allergy Active lisinopril Lisinopril Unknown Drug Allergy Activ e Penicillin Unknown Drug Allergy Active ciprofloxacin Cipro Unknown Drug Allergy Act ritu Substance with 2-zbdgouo-4-methylgluta ryl-coenzyme A reductase inhibitor mechanism of action [...] Problem Screening for malignant neoplasm of colon (121429744) Encounter for screening for malignant neoplasm of colon (Z12.11) Active confirmed Problem Diarrhea (04322934) Diarrhea (R19.7) Active confirmed Problem 28520517 Weight loss (R63.4) Active confirmed Problem Irritable bowel syndrome with diarrhea (731050695) Irritable bowel syndrome with diarrhea (K58.0) Active confirmed Problem Rectal pain (16767876) Rectal pain (K62.89) Active confirmed Problem 45963232 Diarrhea, unspecified type (R19.7) Active confirmed Problem 53249884 Other irritable bowel syndrome (K58.8) Active confirmed Problem 42885334 Irritable bowel syndrome with both constipation and diarrhea (K58.2) Active confirmed Problem 96283579 Change in bowel function (R19.8) Active confirmed [...] Date MEDICARE OF [place] [address] [place] [address] [id number] YARITZA AVINA Self - patient is the insured MEDEX ATTN CLAIMS [address] [place] [address] [phone] [id number] YARITZA AVINA Self - patient is the insured Medical (General) History Medical History History ICD Code Colon and EGD 05-11-2003--co lonoscopy was normal other than occasional diverticulosis and small internal hemorrhoids, and the upper endoscopy was normal as well, including duodenal biopsies Hypothyroid Elevated cholesterol Denies [place],DM,CVA,Lung disease,renal dise ase Breast cancer as below [...]
--- OUTSIDE RECORDS SUMMARY | 2025-02-17 09:19 | XMS_ITS | Clinical Summary ---
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[employer] Not on file Not on file [...] Maintenance Insurance MEDICARE PART A & B [employer] MEDEX SUPPLEMENT MEDICARE PART A & B [employer] MED[employer] SUPPLEMENT MEDICARE PART A & B [employer] MED[employer] SUPPLEMENT MEDICARE PART A & B [employer] MED[employer] SUPPLEMENT MEDICARE PART A & B [employer] MED[employer] SUPPLEMENT MEDICARE PART A & B [employer] MED[employer] SUPPLEMENT MEDICARE PART A & B [employer] MEDEX SUPPLEMENT MEDICARE PART A & B [facility] MEDEX SUPPLEMENT MEDICARE PART A & B [employer] CROSS MEDEX SUPPLEMENT Care Teams Guest Room Attendant Relationship Specialty Start Date End Date Laurence Gurrola MD [address] [place] [address] PCP - General 04/09/17 Additional Source Comments The information contained in this document represents components of the legal health record. It is not the complete legal health record.[facility]
== END 2025-02-17 09:18 | disposition home or self-care (01) ==
LOC: HO.HGS 08:59
PROVIDERS: PCP Internal Medicine; Visit Provider Surgery
DX: Z85.3 Personal history of malignant neoplasm of breast (principal)
CPT/HCPCS: 99213; G2211

== ENCOUNTER → 2025-02-17 08:58 | Outpatient (BNVA) | payer MEDICARE, SELFPAY | PROVIDERS: PCP Internal Medicine; Visit Provider Surgery | DX: Z85.3 Personal history of malignant neoplasm of breast (principal) | CPT/HCPCS: 99212 ==

== ENCOUNTER 2025-04-10 09:36 | Outpatient (AMB) | payer MEDICARE, SELFPAY ==
[2025-04-10 10:04] VITALS: BP 138/80; PULSE 91; TEMP 36.8; O2SAT 98; BMI 23.3
--- NOTE | 2025-04-10 10:04 | MHC.OFFWIV ---
Intake Vital Signs 04/10/25 10:04 Height 5 ft 3 in Weight 131 lb 6 oz BMI 23.3 BP 138/80 Blood Pressure Location Rt brachial Position Sitting Pulse 91 Pulse Source Pulse Oximeter Temp 98.2 F Temp Source Oral Pulse Oximetry (%) 98 Oxygen Delivery Method Room Air Intake Visit Reasons: EP Diarrhea [phone] Intake Note: Patient presents for diarrhea within a few hours after eating x1 week Patient Tobacco Use Status: Never used Tobacco Allergies Epvftuy-AOV-PaK Reductase Inhibitor (EZXRWTL-NWS-VQO REDUCTASE INHIBITOR) Allergy (Mild, Verified 04/10/25 10:07) ACHY atorvastatin (From Lipitor) Allergy (Unknown, Verified 04/10/25 10:07) Muscle Pain ciprofloxacin (Cipro) Allergy (Unknown, Verified 04/10/25 10:07) Anaphylaxis metronidazole Allergy (Unknown, Verified 04/10/25 10:07) anaphylaxis rosuvastatin (From Crestor) Allergy (Unknown, Verified 04/10/25 10:07) Muscle Pain simvastatin Allergy (Unknown, Verified 04/10/25 10:07) Muscle Pain Sulfa (Sulfonamide Antibiotics) Allergy (Unknown, Verified 04/10/25 10:07) diarrhea sulfamethoxazole (From Bactrim) Allergy (Unknown, Verified 04/10/25 10:07) Unknown trimethoprim (From Bactrim) Allergy (Unknown, Verified 04/10/25 10:07) Unknown hydrochlorothiazide Adverse Reaction (Intermediate, Verified 04/10/25 10:07) myalgia lisinopril Adverse Reaction (Intermediate, Verified 04/10/25 10:07) Cough omeprazole Adverse Reaction (Intermediate, Verified 04/10/25 10:07) Nausea SEASONAL ALLERGIES Allergy (Intermediate, Uncoded 02/17/25 09:06) ITCHING Do you need a note to return to daycare/school/sports/work: No HPI HPI Comments History of Present Illness Details This is a 75-year-old female with past medical history significant for irritable bowel syndrome, essential hypertension, hyperlipidemia, hypothyroidism who presented to the walk-in clinic complaining of diarrhea for the past 7-10 days. Patient states she has a history of irritable bowel syndrome and does occasionally have ?bouts? of diarrhea although they are typically self-resolving. She states she started to develop bouts of diarrhea about 10 days ago, knee which was associated with mild rectal pain. She states that the diarrhea has been persistent since its onset and this bout is lasting longer than usual. She states she has about 4-5 episodes of diarrhea daily; some episodes are larger in volume while some are smaller in volume. She states the stool is typically a yellowish color. She denies any melena/hematochezia. She denies any abdominal pain or nausea/vomiting but states that she does feel slightly sick to her stomach when she wakes up in the morning. She denies any recent travel, recent medication changes, or recent antibiotic use. She denies any unusual or abnormal food exposures. She states she has a slight left backache but states this is consistent with her history of left sacroiliac joint dysfunction. She states she did recently have a viral URI and her symptoms have been lingering with a cough, chest congestion, and rhinorrhea but these do seem to be improving. She also reports a history of diverticulitis for which she had been treated with ciprofloxacin/metronidazole about 2 years ago; however, she had a bad reaction to the antibiotics. She states at that time she did have severe left lower quadrant abdominal pain, which is absent this time around. Her last colonoscopy was about 6 years ago and was normal at that time and she does follow with the GI doctor although has not been seen by GI since January of 2024 and she was unable to get an appointment this time around. [facility] Medical History Contusion of leg, left Left shoulder pain Shoulder pain, right Sacroiliitis Acute respiratory disease Abdominal pain IBS (irritable bowel syndrome) Left-sided chest pain Intermittent left-sided chest pain Sacroiliac joint dysfunction of left side Breast density Adult general medical exam Chest tightness Shortness of breath Drug allergy, antibiotic Diverticular disease Irritable bowel syndrome Pulmonary nodule Insomnia Anxiety Family history of pancreatic cancer Family history of malignant neoplasm of endometrium Hypercholesterolemia History of left breast cancer Hypothyroidism Hypertension Surgical History History of cataract surgery History of colonoscopy History of tonsillectomy History of left mastectomy History of laparoscopy Family History Father History of cirrhosis Lung cancer Mother Pancreatic cancer CVD (cardiovascular disease) Hypertension Sister History of endometrial cancer Brother No problems noted. 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) Cognitive needs: No Hearing needs: No Vision needs: Yes (Reading glasses) Female Reproductive History Menstrual Age of Menarche: 14 Date of menopause: 06/25/02 Review of Systems Const All systems reviewed & are unremarkable except as noted in HPI and below Reports no additional complaints Eyes Reports no additional complaints ENT Reports no additional complaints Card Reports no additional complaints Resp Reports no additional complaints GI Reports no additional complaints Reports no additional complaints Musc Reports no additional complaints Skin/Breast Reports system reviewed and no additional complaints, except as documented Neuro Reports no additional complaints Psych Reports no additional complaints Endo Reports no additional complaints Tyrese/Lymph Reports no additional complaints Aller/Immun Reports no additional complaints Physical Exam Exam Exam: Vital signs reviewed. Constitutional: Non-toxic appearing. No acute distress. Well-developed and well-nourished. HEENT: Normocephalic and atraumatic. EOMI. Skin: Warm and dry. No rashes or lesions noted. Neck: Full and painless range of motion. Cardio: Regular rate and rhythm. No murmurs, gallops, or rubs. No lower extremity edema. No JVD. Pulmonary: No respiratory distress. No accessory muscle usage. Clear to auscultation bilaterally without wheezing, crackles, or rhonchi. Gastrointestinal: Soft, non-tender, and non-distended in all 4 quadrants. Slightly hypoactive bowel sounds in all 4 quadrants. Musculoskeletal: Normal range of motion in joints throughout the body. No deformity or other signs of injury. Neuro: Alert and oriented x4. Cranial nerves 2-12 grossly intact. No focal deficits appreciated. Psych: Normal mood and affect. Vital Signs: Last Vital Signs Temp 98.2 F 04/10/25 10:04 Pulse 91 04/10/25 10:04 BP 138/80 04/10/25 10:04 Pulse Ox 98 04/10/25 10:04 Oxygen Delivery Method Room Air 04/10/25 10:04 BMI result Body Mass Index 23.3 Assessment & Plan Assessment & Plan (1) Acute diarrhea: Code(s): R19.7 - Diarrhea, unspecified Plan 75-year-old female with past medical history significant for irritable bowel syndrome, essential hypertension, hyperlipidemia, hypothyroidism who presented to the walk-in clinic complaining of diarrhea for the past 7-10 days. On physical examination, her abdomen is soft, non-tender, and non-distended with slightly hypoactive bowel sounds. The differential diagnosis includes IBS flare versus infectious gastroenteritis (viral > bacterial); acute diverticulitis is less likely given absence of pain/tenderness and small bowel obstruction with overflow diarrhea unlikely considering absence of pain, nausea/vomiting, and present bowel sounds. We will plan to check a GI panel and call patient with the results and hold off on antibiotics until GI panel is resulted. Recommended liquid and bland diet as tolerated as well as increased fluids/hydration with electrolytes. Patient was instructed to proceed directly to the emergency room if she were to develop fever/chills, abdominal pain, nausea/vomiting and inability to tolerate oral intake, or melena/hematochezia. She was also instructed to follow-up with her paper reeler if her symptoms do not improve with symptomatic management. Patient verbalized her understanding and she is in agreement with the plan. Orders: Orders GI Panel Today R19.7 - Diarrhea, unspecified Coding Level of Care Code Est Pt Level 3 (42317) Diagnoses Acute diarrhea R19.7
--- OUTSIDE RECORDS SUMMARY | 2025-04-10 10:55 | XMS_ITS | Clinical Summary ---
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[employer] Not on file Not on file [...] SCREENING INITIAL (ONE-TIME) 01/03/2016 MAMMOGRAM 06/03/2022 06/03/2020 INFLUENZA VACCINE (#1) 2025 , 04/11/2019, 04/16/2018, Additional history exists COVID-19 VACCINE (3 - 2024- season) 2025 09/16/2020, 08/19/2020 RSV VACCINE (1 - 1-dose [...] Maintenance Insurance MEDICARE PART A & B [facility] MEDEX SUPPLEMENT MEDICARE PART A & B [employer] MED[employer] SUPPLEMENT MEDICARE PART A & B [employer] MED[employer] SUPPLEMENT MEDICARE PART A & B [employer] MED[employer] SUPPLEMENT MEDICARE PART A & B [employer] MED[employer] SUPPLEMENT MEDICARE PART A & B [employer] MED[employer] SUPPLEMENT MEDICARE PART A & B [employer] MED[employer] SUPPLEMENT MEDICARE PART A & B [employer] MEDEX SUPPLEMENT MEDICARE PART A & B [employer] MEDEX SUPPLEMENT Care Teams Grab Operator Relationship Specialty Start Date End Date Laurence Gurrola MD [address] [place] [address] PCP - General 04/09/17 Additional Source Comments The information contained in this document represents components of the legal health record. It is not the complete legal health record.[facility]
--- OUTSIDE RECORDS SUMMARY | 2025-04-10 10:55 | XMS_ITS | Patient Health Record ---
Author Organization [facility] Address [address] [place] [address] Care Team Providers Care Senior Cytotechnologist Name Role Phone Laurence Gurrola MD Primary Care Provider Abran Liang [phone] Allergies Allergen (clinical drug ingredient) Drug/Non Drug Allergy documented on EMR Reaction Allergy Type Onset Date Status Substance with sulfonamide structure and antibacterial mechanism of action (substance) Sulfa Antibiotics Unknown Drug Allergy Active lisinopril Lisinopril Unknown Drug Allergy Activ e Penicillin Unknown Drug Allergy Active ciprofloxacin Cipro Unknown Drug Allergy Act ritu Substance with 6-annctbc-6-methylgluta ryl-coenzyme A reductase inhibitor mechanism of action (substance) Statins (uncoded) Unknown Allergy Active metronidazole Metronidazole Unknown Drug Allergy Active Reason For Referral No Information Medications Medication SIG (Take, Route, Frequency, Duration) Notes Start Date End Date Status Calcium + Vitamin D3 Active Raloxifene HCl 60 MG TAKE 1 TABLET BY MO UTH EVERY DAY Oral; Duration: 90 Active Dicyclomine HCl 10 MG TAKE 1 TO 2 CAPSUL ES BY MOUTH BEFORE MEALS NEEDED Oral; Duration: 30 Not-Taking Azelaic Acid 15 % 1 application Externally Twice a day Active Esomeprazole Magnesium 20 MG TAKE 1 CAPSULE BY MOUTH EVERY DAY Oral; Duration: 30 Not-Taking Multivitamin Adult - as directed Orally Active amLODIPine Besylate 5 MG TAKE 1 TABLET B Y MOUTH EVERY DAY Oral; Duration: 90 Active Ketoconazole 2 % USE TO SHAMPOO ONCE A WEEK FOR 30 DAYS External; Duration: 30 Active Probiotic - as directed Orally Active Ezetimibe 10 MG TAKE 1 TABLET BY ELIO TH EVERY DAY Oral; Duration: 90 Active Flonase Allergy Relief 50 MCG/ACT 1 spray in each nostril Nasally Once a day Active Levothyroxine Sodium 75 MCG TAKE 1 TABLET BY MOUTH EVERY DAY IN THE MORNING ON EMPTY STOMACH *SEPARATE FROM RALOXEFINE BY 12 HRS Oral; Duration: 90 Active Immunizations Vaccine Route Administration Date Status Comme nts Influenza Unknown 03/25/2018 Administered Influenza Unknown 03/25/2019 Administered Problems Problem Type SNOMED Code ICD Code Onset Dates Problem Status W/U Status Risk Notes Problem Screening for malignant neoplasm of colon (415483423) Encounter for screening for malignant neoplasm of colon (Z12.11) Active confirmed Problem Diarrhea (69609481) Diarrhea (R19.7) Active confirmed Problem Weight loss (483364329) Weight loss (R63.4) Active confirmed Problem Irritable bowel syndrome with diarrhea (316308038) Irritable bowel syndrome with diarrhea (K58.0) Active confirmed Problem Rectal pain (04451596) Rectal pain (K62.89) Active confirmed Problem Diarrhea (04312939) Diarrhea, unspecified type (R19.7) Active confirmed Problem Irritable bowel syndrome (16072331) Other irritable bowel syndrome (K58.8) Active confirmed Problem Irritable bowel syndrome (53032284) Irritable bowel syndrome with both constipation and diarrhea (K58.2) Active confirmed Problem Altered bowel function (51913625) Change in bowel function (R19.8) Active confirmed [...] Date MEDICARE OF [place] [address] [place] [address] [phone] [id number] YARITZA AVINA Self - patient is the insured [employer] ATTN CLAIMS [address] [place] [address] [id number] YARITZA AVINA Self - patient is the insured Medical (General) History Medical History History ICD Code Colon and EGD 05-11-2003--co lonoscopy was normal other than occasional diverticulosis and small internal hemorrhoids, and the upper endoscopy was normal as well, including duodenal biopsies Hypothyroid Elevated cholesterol Denies OK,DM,CVA,Lung disease,renal dise ase Breast cancer as below [...]
== END 2025-04-10 10:47 | disposition home or self-care (01) ==
PROVIDERS: PCP Internal Medicine; Visit Provider Physician Assistant Medical
DX: R19.7 Diarrhea, unspecified (principal)

== ENCOUNTER 2025-04-10 13:15 | Outpatient (REF) | payer MEDICARE, SELFPAY ==
[2025-04-11 11:45] LABS: E. coli EAEC Not Detected (Not Detect.); E. coli EPEC Not Detected (Not Detect.); E. coli ETEC Not Detected (Not Detect.); E. coli STEC Not Detected (Not Detect.); Shigella sp./EIEC Not Detected (Not Detect.)
== END 2025-04-10 13:16 | disposition home or self-care (01) ==
LOC: HO.HMGCLNP 13:15
PROVIDERS: PCP Internal Medicine; Visit Provider Physician Assistant Medical
DX: R19.7 Diarrhea, unspecified (principal)
CPT/HCPCS: 87507; 99212

== ENCOUNTER 2025-04-12 14:25 | Emergency (ER) | payer MEDICARE, SELFPAY ==
--- NOTE | ~2025-04-12 | CT_ITS ---
CLINICAL HISTORY: Diarrhea x10 days; Hx Diverticulitis CT abdomen and pelvis with contrast Comparison: None provided Findings: Hiatal hernia. Left renal interpolar region cortical low-attenuation lesion, 1 cm upper pole 0.6 cm; renal cysts. The liver and spleen are homogeneous in attenuation. Mild pancreatic atrophy. The gallbladder is within normal limits. No bowel obstruction, pneumoperitoneum, or pneumatosis. Mild calcified atherosclerotic disease abdominal aorta. The appendix is within normal limits. Diverticulosis. The uterus demonstrates multiple dystrophic calcifications with right of midline exophytic isoattenuating lesion, 2.6 cm. Mild osteopenia. IMPRESSION: 1. Diverticulosis 2. Left renal cortical cysts: 1 cm in interpolar region and 0.6 cm in upper pole. 3. Uterine calcifications with 2.6 cm right-sided exophytic lesion; leiomyomas. 4. No acute intraabdominal or pelvic findings. This document has been electronically signed by: Jayme Nagel MD on 04/12/2025 22:25:54
[2025-04-12 14:59] VITALS: BP 160/76; PULSE 100; RESP 18; TEMP 36.4; O2SAT 97; BMI 23.7
--- NOTE | 2025-04-12 15:00 | ED_ITS ---
HPI - General Adult General Chief complaint: Nausea/Vomiting/Diarrhea Stated complaint: diarrhea Time Seen by Provider: 04/12/25 20:07 Source: patient Mode of arrival: ambulatory Limitations: no limitations History of Present Illness ED Provider: Bashir VARGAS HPI narrative: The patient is a 75-year-old female with a history of GERD, IBS, diverticulitis, breast cancer status post mastectomy, hyperlipidemia, hypothyroidism, hypertension, and COVID in August of this year, presenting to the ED for evaluation of 10 days of nonbloody diarrhea. The patient reports 10 days ago she began experiencing yellow liquid diarrhea without associated hematochezia, melena, or abdominal pain. Patient further denies associated vomiting, fever/chills, chest pain, shortness of breath, back pain, dysuria, hematuria, recent sick contacts, or recent trauma. The patient reports 1-2 days after onset of diarrhea she began experiencing viral URI symptoms with sinus congestion, rhinorrhea, nonproductive cough, and generalized malaise. The patient reports the viral URI symptoms resolved after 3-4 days, however the diarrhea has persisted prompting patient to be seen at urgent care on Sunday. Urgent care send stool studies, and considered antibiotics due to patient's history of diverticulitis, however due to the patient's multiple allergies, antibiotics were held given the lack of fever and abdominal tenderness/pain. Today the patient reports symptoms have persisted and she presents to the ED for re-evaluation. Related Data Home Medications ?Medication ?Instructions ?Recorded ?Confirmed Saccharomyces boulardii 250 mg 250 mg PO DAILY 0 02/17/25 capsule (Daily Probiotic (S. boulardii)) calcium 600 mg (as 1 cap PO DAILY 05/27/2001/24 carbonate)-vitamin D3 5 mcg (200 unit) capsule (Calcium 600 + D(3)) fluticasone propionate 50 2 spray intranasal DAILY 09/1102/17/25 mcg/actuation nasal spray,suspension ketoconazole 2 % shampoo 1 appl topical 2XW 05/27/20 02/17/25 multivitamin 1 tab PO DAILY 12/29/2101/24 magnesium 250 mg tablet 250 mg PO DAILY 10/09/24 Previous Rx's ?Medication ?Instructions ?Recorded mastectomy bra (left) #4 ea 03/21/22 levothyroxine 75 mcg tablet 75 mcg PO QAM 90 days #90 tabs 08/14/24 cetirizine 10 mg tablet 10 mg PO DAILY #90 tabs 01/16 raloxifene 60 mg tablet See Rx Instructions .Route 0 12/08/24 .COMPLEX #90 tabs ezetimibe 10 mg tablet (Zetia) 10 mg PO DAILY #90 tabs 12/27/24 prosthetics #1 ea 02/17/25 amlodipine 5 mg tablet 5 mg PO DAILY #90 tabs 04/11 Allergies Allergy/AdvReac Type Severity Reaction Status Date / Time Eyayisc-ZFT-CvC Reductase Allergy Mild ACHY Verified 04/12/25 15:01 Inhibitor (NRRTXNI-[id number]-[id number] REDUCTASE INHIBITOR) atorvastatin (From Lipitor) Allergy Unknown Muscle Pain Verified 04/12/25 15:01 ciprofloxacin (Cipro) Allergy Unknown Anaphylaxis Verified 04/12/25 15:01 metronidazole Allergy Unknown anaphylaxis Verified 04/12/25 15:01 rosuvastatin (From Crestor) Allergy Unknown Muscle Pain Verified 04/12/25 15:01 simvastatin Allergy Unknown Muscle Pain Verified 04/12/25 15:01 Sulfa (Sulfonamide Allergy Unknown diarrhea Verified 04/12/25 15:01 Antibiotics) sulfamethoxazole (From Allergy Unknown Unknown Verified 04/12/25 15:01 Bactrim) trimethoprim (From Bactrim) Allergy Unknown Unknown Verified 04/12/25 15:01 hydrochlorothiazide AdvReac Intermediate myalgia Verified 04/12/25 15:01 lisinopril AdvReac Intermediate Cough Verified 04/10/25 10:07 omeprazole AdvReac Intermediate Nausea Verified 04/10/25 10:07 SEASONAL ALLERGIES Allergy Intermediate ITCHING Uncoded 02/17/25 09:06 Review of Systems 2 Review of Systems: Yes all other systems are reviewed and are negative PMFSH Past Medical History Medical History Contusion of leg, left Left shoulder pain Shoulder pain, right Sacroiliitis Acute respiratory disease Abdominal pain IBS (irritable bowel syndrome) Left-sided chest pain Intermittent left-sided chest pain Sacroiliac joint dysfunction of left side Breast density Adult general medical exam Chest tightness Shortness of breath Drug allergy, antibiotic Diverticular disease Irritable bowel syndrome Pulmonary nodule Insomnia Anxiety Family history of pancreatic cancer Family history of malignant neoplasm of endometrium Hypercholesterolemia History of left breast cancer Hypothyroidism Hypertension Surgical History History of cataract surgery History of colonoscopy History of tonsillectomy History of left mastectomy History of laparoscopy Family History Family History Father History of cirrhosis Lung cancer Mother Pancreatic cancer CVD (cardiovascular disease) Hypertension Sister History of endometrial cancer Brother No problems noted. Other Substance use disorder Social History Social History Household Members: None Housing: House Are you a primary campground caretaker to a significant other at home: No Do you presently have visiting nurse or other home services: No Alcohol intake: current Alcohol intake frequency: holidays/special occasions only Alcohol type: beer and wine Comment: once Q 2 months Patient Tobacco Use Status: Never used Tobacco Tobacco use type: Cigarette Smoked in Last 30 Days: No e-Cigarette/Vaping Use: Never Used Second Hand Smoke Exposure: No Advance Directives: Yes Advance Directives Information Provided: No Advance Directives on File: No Do you have a plan to hurt others: No Plan service: No 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 Vital signs as documented. HEAD: Atraumatic, normocephalic. EYES: EOMs grossly intact, pupils equal, conjunctiva clear, no exudate. ENT: Nares patent, no discharge. Airway patent, no audible stridor, visible mucosa is pink and moist without noted lesions. NECK: Trachea is midline, no obvious masses or gross abnormalities. CHEST: Symmetric movement, normal appearance. LUNGS: LS present and CTAB, no w/r/r. Non-labored work of breathing. CARDIAC: Regular Rhythm, S1/S2 appreciated, no murmurs, rubs or gallops. ABDOMEN: Abdomen soft and non-tender x4 quadrants, no palpable masses or organomegaly. : Deferred. EXTREMITIES: Normal tone, moves all extremities spontaneously without reported pain. No obvious acute injury or deformity noted. NEURO: Alert and oriented x3, CN II-XII appear grossly intact. Cerebellar Functioning grossly intact. No obvious sensory or motor deficits. Speech clear and appropriate. PSYCH: normal affect, appropriate eye contact, fluid speech, with appropriate response to questioning. No reported suicidality or homicidality. SKIN: Warm, dry, color appropriate, normal turgor. No rashes noted. Course Course Course Narrative: This is a rapid medical exam performed by Mukund Lezama NP: Additional HPI, ROS, PE not included below will be deferred to primary provider. Patient is a 75y/o F with pmhx of IBS, diverticulitis presenting with complaint of diarrhea for the past 10 days. Went to urgent care, was starting to feel a little better, then worse again. Denies any abdominal pain, states does not feel similar to prior diverticulitis. Denies recent antibiotic use. Plan: labs, UA, GI panel and c. diff Medications Administered Discontinued Medications Generic Name Dose Route Start Last Admin Trade Name Freq PRN Reason Stop Dose Admin Iohexol 85 ml 04/12/25 21:19 04/12/25 21:21 Iohexol 350 Mg/Ml 100 Ml Infus..Btl IV 04/12/25 21:20 85 ml ONCE ONE Administration Medical Decision Making Medical Decision Making [facility] Narrative: 8:44 PM 04/12/2025 (Demi VARGAS): The patient is a 75-year-old female with a history of GERD, IBS, diverticulitis, breast cancer status post mastectomy, hyperlipidemia, hypothyroidism, hypertension, and COVID in August of this year, presenting to the ED for evaluation of 10 days of nonbloody diarrhea. The patient reports 10 days ago she began experiencing yellow liquid diarrhea without associated hematochezia, melena, or abdominal pain. Patient further denies associated vomiting, fever/chills, chest pain, shortness of breath, back pain, dysuria, hematuria, recent sick contacts, or recent trauma. The patient reports 1-2 days after onset of diarrhea she began experiencing viral URI symptoms with sinus congestion, rhinorrhea, nonproductive cough, and generalized malaise. The patient reports the viral URI symptoms resolved after 3-4 days, however the diarrhea has persisted prompting patient to be seen at urgent care on Sunday. Urgent care send stool studies, and considered antibiotics due to patient's history of diverticulitis, however due to the patient's multiple allergies, antibiotics were held given the lack of fever and abdominal tenderness/pain. Today the patient reports symptoms have persisted and she presents to the ED for re-evaluation. The patient in the ED appears in no acute distress, afebrile, without tachycardia. The patient's exam is markedly reassuring, mild discomfort but no overt tenderness of the left lower quadrant, otherwise unremarkable. The patient's laboratory evaluation is reassuring, there is a very slight elevated WBC at 10.9, without anemia, electrolyte abnormality, or OMAYRA. LFTs are unremarkable. The patient's stool studies from urgent care were reviewed and are negative for infectious pathology. The patient's presentation is more consistent with viral syndrome with viral diarrhea rather than acute diverticulitis. A risks benefit discussion was held with the patient regarding indication for CT imaging given low likelihood of diverticulitis, patient was advised there was no strong indication for CT imaging however given her history of diverticulitis and her age it was not inappropriate to obtain CT to confirm no acute intra-abdominal pathology. Patient opted for CT imaging to further investigate the source of her symptoms. Patient will be sent for CT abdomen and pelvis with IV contrast, pending unremarkable CT abdomen and pelvis the patient will be discharged to follow up with PCP and her GI physician Dr. Jefferson 11:10 PM 04/12/2025 (Demi VARGAS): Patient's CT shows no evidence of acute diverticulitis, no other acute pathology. The patient will be discharged with instructions to remain well hydrated and follow up with PCP and Dr. Jefferson. Admission/Observation Consideration of admission/observation: Escalation of care including admission/observation considered Lab Data MDM Lab Attestation statement: I reviewed the patient's lab results. 04/12/25 15:51 04/12/25 15:51 Labs: Lab Results 04/12/25 04/12/25 Range/Units 15:51 22:33 WBC 10.9 H (4.8-10.8) X10*3/uL RBC 5.54 H (4.20-5.50) X10*6/uL Hgb 15.8 (12.0-16.0) g/dl Hct 48.3 H (37.0-47.0) % MCV 87.2 (80.0-98.0) fL MCH 28.5 (27.0-33.0) pg MCHC 32.7 (31.0-35.0) g/dl RDW 12.8 (11.0-16.0) % Plt Count 408 H D (160-400) X10*3/uL MPV 8.8 L (9.4-12.3) fL Immature Gran % (Auto) 0.4 (0.0-0.4) % Neut % (Auto) 65.0 (45-73) % Lymph % (Auto) 22.2 (20-40) % [place] % (Auto) 9.9 (2-11) % Eos % (Auto) 1.7 (0-4) % Baso % (Auto) 0.8 (0-2) % Lymph # (Auto) 2.4 (1.2-4.9) X10*3/uL [place] # (Auto) 1.1 (0.1-1.2) X10*3/uL Eos # (Auto) 0.2 (0.0-0.4) X10*3/uL Baso # (Auto) 0.1 (0.0-0.2) X10*3/uL Abs Immat Gran (auto) 0.04 H (0.00-0.03) X10*3/uL Absolute Neuts (auto) 7.1 (2.0-8.3) x10*3/uL Absolute Nucleated RBC 0.000 (0.0-0.012) X10*3/uL Nucleated RBC % (auto) 0.0 (0.0-0.2) /100WBC Sodium 141 (135-145) mmol/L Potassium 4.1 (3.3-5.1) mmol/L Chloride 103 (96-108) mmol/L Carbon Dioxide 26 (22-29) mmol/L Anion Gap 16 (12-20) BUN 10 (9-16) mg/dL Creatinine 0.81 (0.5-1.4) mg/dL Estim Creat Clear Calc 50.4 Estimated GFR > 60 Random Glucose 106 (60-115) mg/dL Calcium 9.8 (8.4-10.2) mg/dL Magnesium 2.3 (1.6-2.6) mg/dL Total Bilirubin 0.4 (0.0-1.0) mg/dL AST 31 (5-31) U/L ALT 27 (0-31) U/L Alkaline Phosphatase 66 (39-117) U/L Total Protein 7.8 (6.5-8.0) g/dL Albumin 4.8 (3.5-5.0) g/dL Urine Color Yellow Urine Appearance Clear Urine pH 7.0 (5.0-9.0) Ur Specific [place] >= 1.030 H (1.005-1.025) Urine Protein Negative (Neg-Trace) mg/dL Urine Glucose (UA) Negative (Negative) mg/dL Urine Ketones 15 (Negative) mg/dL Urine Blood Negative (Negative) Urine Nitrite Negative (Negative) Ur Leukocyte Esterase Negative (Negative) Radiology Impression Discussion of test interpretation with radiology: I have reviewed the radiologist's reading. Radiologist Impression: CT abdomen and pelvis with contrast Comparison: None provided Findings: Hiatal hernia. Left renal interpolar region cortical low-attenuation lesion, 1 cm upper pole 0.6 cm; renal cysts. The liver and spleen are homogeneous in attenuation. Mild pancreatic atrophy. The gallbladder is within normal limits. No bowel obstruction, pneumoperitoneum, or pneumatosis. Mild calcified atherosclerotic disease abdominal aorta. The appendix is within normal limits. Diverticulosis. The uterus demonstrates multiple dystrophic calcifications with right of midline exophytic isoattenuating lesion, 2.6 cm. Mild osteopenia. IMPRESSION: 1. Diverticulosis 2. Left renal cortical cysts: 1 cm in interpolar region and 0.6 cm in upper pole. 3. Uterine calcifications with 2.6 cm right-sided exophytic lesion; leiomyomas. 4. No acute intraabdominal or pelvic findings. This document has been electronically signed by: Jayme Nagel MD on 04/12/2025 22:25:54 Discharge Plan Discharge Clinical Impression: Viral diarrhea Patient Disposition: Home, Self-Care Instructions: Acute Diarrhea (ED), Enteritis (ED) Additional Instructions: Thank you for choosing [facility] Emergency Department for your care today. Thankfully your laboratory evaluation today is reassuring and shows no evidence of dehydration, electrolyte abnormalities, liver abnormalities, or a systemic bacterial infection. Your CT thankfully shows no evidence of diverticulitis. At this time there is no indication for admission to the hospital or continued ED observation, and it is safe to discharge you home. Your symptoms are likely secondary to a viral illness causing significant viral diarrhea. Thankfully your stool studies from urgent Care showed no evidence of any other acute infection requiring antibiotics or emergent intervention. Please continue stay well hydrated and get plenty of rest. Please follow up with the primary care provider if symptoms do not improve in the next 3-5 days. Please follow up with your primary care physician for re-evaluation, additional management of your symptoms, and continued preventative care. If you do not have a primary care physician, please call the [facility] at [phone] to establish a new primary care physician. While waiting to establish your new primary care physician, you can call our Walk-in [facility] at [phone] for non-emergency needs. Please return to the emergency department if you develop a severe or sudden change in your symptoms, a fever over 100.4 that does not improve with Tylenol or Ibuprofen, recurrent vomiting, or any other new or worsening symptoms or concerns. Prescriptions: No Action (DME) mastectomy bra (left) to fit insert See Rx Instructions .Route .MEDSUPPLY Qty: 4 0RF Rx Instructions: As directed levothyroxine 75 mcg tablet 75 mcg PO QAM 90 Days Qty: 90 2RF cetirizine 10 mg tablet 10 mg PO DAILY Qty: 90 1RF ezetimibe [Zetia] 10 mg tablet 10 mg PO DAILY Qty: 90 3RF amlodipine 5 mg tablet 5 mg PO DAILY Qty: 90 2RF multivitamin Tablet 1 tab PO DAILY raloxifene 60 mg Tablet See Rx Instructions .ROUTE .COMPLEX Qty: 90 4RF Rx Instructions: 60 mg orally Calcium 600 + D(3) 600 mg calcium- 200 unit capsule 1 cap PO DAILY fluticasone propionate 50 mcg/actuation spray,suspension 2 spray intranasal DAILY Rx Instructions: administer into each nostril ketoconazole 2 % shampoo 1 appl topical 2XW Saccharomyces boulardii [Daily Probiotic (S. boulardii)] 250 mg capsule 250 mg PO DAILY Rx Instructions: swallow whole (DME) prosthetics Kit See Rx Instructions .Route Qty: 1 0RF Rx Instructions: As directed magnesium 250 mg tablet 250 mg PO DAILY Referrals: Galileo,Laurence Bales MD [Primary Care Provider, Internal Medicine] Clinical Impression: Viral diarrhea Print Language: Bulgarian
--- OUTSIDE RECORDS SUMMARY | 2025-04-12 15:57 | XMS_ITS | Patient Health Record ---
Author Organization [facility] Address [address] [place] [address] Care Team Providers Care Director Of Cardiac Rehabilitation Name Role Phone Laurence Gurrola MD Primary Care Provider Abran Liang [phone] Allergies Allergen (clinical drug ingredient) Drug/Non Drug Allergy documented on EMR Reaction Allergy Type Onset Date Status Substance with sulfonamide structure and antibacterial mechanism of action (substance) Sulfa Antibiotics Unknown Drug Allergy Active lisinopril Lisinopril Unknown Drug Allergy Activ e Penicillin Unknown Drug Allergy Active ciprofloxacin Cipro Unknown Drug Allergy Act ritu Substance with 5-bvdwfnz-8-methylgluta ryl-coenzyme A reductase inhibitor mechanism of action [...] Problem Screening for malignant neoplasm of colon (814718232) Encounter for screening for malignant neoplasm of colon (Z12.11) Active confirmed Problem Diarrhea (53488935) Diarrhea (R19.7) Active confirmed Problem Weight loss (636419085) Weight loss (R63.4) Active confirmed Problem Irritable bowel syndrome with diarrhea (754818869) Irritable bowel syndrome with diarrhea (K58.0) Active confirmed Problem Rectal pain (55878265) Rectal pain (K62.89) Active confirmed Problem Diarrhea (06887149) Diarrhea, unspecified type (R19.7) Active confirmed Problem Irritable bowel syndrome (52036977) Other irritable bowel syndrome (K58.8) Active confirmed Problem Irritable bowel syndrome (56207704) Irritable bowel syndrome with both constipation and diarrhea (K58.2) Active confirmed Problem Altered bowel function (79560410) Change in bowel function (R19.8) Active confirmed [...] Date MEDICARE OF [place] [address] [place] [address] [phone] [id number] YARITZA AVINA Self - patient is the insured [employer] ATTN CLAIMS [address] [place] [address] [phone] [id number] YARITZA AVINA Self - patient is the insured Medical (General) History Medical History History ICD Code Colon and EGD 05-11-2003--co lonoscopy was normal other than occasional diverticulosis and small internal hemorrhoids, and the upper endoscopy was normal as well, including duodenal biopsies Hypothyroid Elevated cholesterol Denies ID,DM,CVA,Lung disease,renal dise ase Breast cancer as below [...]
--- OUTSIDE RECORDS SUMMARY | 2025-04-12 15:57 | XMS_ITS | Clinical Summary ---
Author Organization [facility] Address [address] [place] [address] Phone Care Team Providers Care Vice President Fixed Income Name Role Phone Laurence Gurrola MD Primary Care Provider [phone] Allergies Active Allergy Reactions Criticality Noted Date [...] Start Date Job End Date [employer]-- [employer] Not on file Not on file [...] Maintenance Insurance MEDICARE PART A & B Member Subscriber Plan / Payer (Ef fective 2019-Present) Name:Leesa Renteria Member ID:[id number] Relation to Subscriber:Self Name:Leesa Renteria Subscriber ID:[id number] Payer ID:[id number] Group ID:Not on file Type:Medicare Address: [facility] [employer] [facility] [facility] [place] [address] [facility] MEDEX SUPPLEMENT MEDICARE PART A & B [place] MEDEX SUPPLEMENT MEDICARE PART A & B [place] [place] MEDEX SUPPLEMENT MEDICARE PART A & B [place] [place] MEDEX SUPPLEMENT MEDICARE PART A & B [place] [place] MEDEX SUPPLEMENT MEDICARE PART A & B [place] [place] MEDEX SUPPLEMENT MEDICARE PART A & B [employer] [place] MEDEX SUPPLEMENT MEDICARE PART A & B [employer] MEDEX SUPPLEMENT MEDICARE PART A & B [employer] MEDEX SUPPLEMENT Care Teams Vice President Fixed Income Relationship Specialty Start Date End Date Laurence Gurrola MD [address] [place] [id number] PCP - General 04/09/17 Additional Source Comments The information contained in this document represents components of the legal health record. It is not the complete legal health record.[facility]
[2025-04-12 16:01] LABS: MANUAL DIFF FLAG NO
[2025-04-12 16:06] LABS: Hematocrit 48.3 % (37.0-47.0); Hemoglobin 15.8 g/dl (12.0-16.0); Imm Gran Abs Auto 0.04 X10*3/uL (0.00-0.03); Imm Gran Pct Auto 0.4 % (0.0-0.4); Lymphocytes Absolute Auto 2.4 X10*3/uL (1.2-4.9); Mean Corpuscular HGB Conc 32.7 g/dl (31.0-35.0); Mean Corpuscular Hemoglobin 28.5 pg (27.0-33.0); Mean Corpuscular Volume 87.2 fL (80.0-98.0); NRBC Abs Auto 0.000 X10*3/uL (0.0-0.012); NRBC Pct Auto 0.0 /100WBC (0.0-0.2); Platelet Count 408 X10*3/uL (160-400); Red Blood Count 5.54 X10*6/uL (4.20-5.50); White Blood Count 10.9 X10*3/uL (4.8-10.8)
[2025-04-12 16:34] VITALS: BP 141/89; PULSE 102; RESP 20; TEMP 36.6; O2SAT 95
[2025-04-12 16:36] LABS: Alanine Aminotransferase 27 U/L (0-31); Albumin Level 4.8 g/dL (3.5-5.0); Anion Gap 16 (12-20); Aspartate Amino Transferase 31 U/L (5-31); Blood Urea Nitrogen 10 mg/dL (9-16); Calcium 9.8 mg/dL (8.4-10.2); Carbon Dioxide 26 mmol/L (22-29); Chloride 103 mmol/L (96-108); Creatinine Clr Calc Pharmacy 50.4; Estimated Glomerular Filt Rate > 60; Magnesium 2.3 mg/dL (1.6-2.6); Potassium 4.1 mmol/L (3.3-5.1); Sodium 141 mmol/L (135-145); Total Protein 7.8 g/dL (6.5-8.0)
[2025-04-12 16:50] LABS: Alkaline Phosphatase 66 U/L (39-117)
--- NOTE | 2025-04-12 19:30 | PC.NURSE ---
Assumed care of pt, presents with diarrhea x10 days, pt went to urgent care and took cultures, aaox4, nad, denies pain at this time,
[2025-04-12 20:31] VITALS: BP 140/57; PULSE 80; RESP 20; TEMP 36.7; O2SAT 97
[2025-04-12] MEDS: iohexoL 350 MG/ML 100 ML INFUS..BTL 85 ML IV (21:21)
[2025-04-12 22:40] LABS: Appearance Urine Clear; Glucose Urine UA Negative (Negative); PH 7.0 (5.0-9.0); Specific Gravity - Urine >= 1.030 (1.005-1.025)
[2025-04-12 23:36] VITALS: BP 140/57; PULSE 80; RESP 20; TEMP 36.7; O2SAT 97
== END 2025-04-12 23:38 | disposition home or self-care (01) ==
PROVIDERS: Registered Nurse Emergency; Emergency Provider Emergency Medicine; PCP Internal Medicine
DX: A08.4 Viral intestinal infection, unspecified (principal); R11.2 Nausea with vomiting, unspecified; K21.9 Gastro-esophageal reflux disease without esophagitis; Z87.19 Personal history of other diseases of the digestive system
CPT/HCPCS: 36415; 74177; 80053; 81003; 83735; 85025; 99284; 99285; Q9967

== ENCOUNTER → 2025-04-12 20:43 | Outpatient (BNV) | payer MEDICARE, SELFPAY | PROVIDERS: Emergency Provider Emergency Medicine; PCP Internal Medicine; Visit Provider Radiology Diagnostic Radiology | DX: K57.90 Diverticulosis of intestine, part unspecified, without perforation or abscess without bleeding (principal); N28.1 Cyst of kidney, acquired; D25.9 Leiomyoma of uterus, unspecified | CPT/HCPCS: 74177 ==

== ENCOUNTER 2025-05-12 06:46 | Outpatient (REF) | payer MEDICARE, SELFPAY ==
[2025-05-12 10:33] LABS: MANUAL DIFF FLAG NO
[2025-05-12 10:58] LABS: Appearance Urine Clear; Glucose Urine UA Negative (Negative); PH 5.0 (5.0-9.0); Specific Gravity - Urine 1.020 (1.005-1.025); UMIC TRIGGER UACC YES
[2025-05-12 11:05] LABS: Hematocrit 45.5 % (37.0-47.0); Hemoglobin 14.5 g/dl (12.0-16.0); Imm Gran Abs Auto 0.03 X10*3/uL (0.00-0.03); Imm Gran Pct Auto 0.4 % (0.0-0.4); Lymphocytes Absolute Auto 2.6 X10*3/uL (1.2-4.9); Mean Corpuscular HGB Conc 31.9 g/dl (31.0-35.0); Mean Corpuscular Hemoglobin 28.9 pg (27.0-33.0); Mean Corpuscular Volume 90.6 fL (80.0-98.0); NRBC Abs Auto 0.000 X10*3/uL (0.0-0.012); NRBC Pct Auto 0.0 /100WBC (0.0-0.2); Platelet Count 325 X10*3/uL (160-400); Red Blood Count 5.02 X10*6/uL (4.20-5.50); White Blood Count 7.9 X10*3/uL (4.8-10.8)
[2025-05-12 11:09] LABS: Alanine Aminotransferase 26 U/L (0-31); Albumin Level 4.3 g/dL (3.5-5.0); Alkaline Phosphatase 53 U/L (39-117); Anion Gap 13 (12-20); Aspartate Amino Transferase 34 U/L (5-31); Blood Urea Nitrogen 14 mg/dL (9-16); Calcium 9.3 mg/dL (8.4-10.2); Carbon Dioxide 27 mmol/L (22-29); Chloride 105 mmol/L (96-108); Cholesterol 233 mg/dL (<200); Estimated Glomerular Filt Rate > 60; HDL Cholesterol 68 mg/dL (>40); Magnesium 2.1 mg/dL (1.6-2.6); Potassium 4.0 mmol/L (3.3-5.1); Sodium 141 mmol/L (135-145); Total Protein 6.8 g/dL (6.5-8.0); Triglycerides 253 mg/dL (<150); UACC Culture Trigger YES
[2025-05-12 11:28] LABS: Free T4 (Free Thyroxine) 1.13 ng/dL (0.71-1.85); Thyroid Stimulating Hormone 0.99 uIU/mL (0.32-4.0)
[2025-05-12 11:47] LABS: Folate 11.2 ng/mL (> or = 4.0); Vitamin B12 320 pg/mL (200-900)
== END 2025-05-12 06:47 | disposition home or self-care (01) ==
LOC: HO.HMGCLDS 06:46
PROVIDERS: PCP Internal Medicine; Visit Provider Internal Medicine
DX: Z13.1 Encounter for screening for diabetes mellitus (principal); E78.00 Pure hypercholesterolemia, unspecified; R30.0 Dysuria
CPT/HCPCS: 36415; 80053; 80061; 81001; 81003; 82306; 82607; 82746; 83036; 83735; 84439; 84443; 85025; 87086